=== PATIENT | male | born 1980 ===

== ENCOUNTER 2022-01-09 10:00 | Outpatient (RCR) | payer MEDICARE, MEDICAID, SELFPAY | END 2022-01-09 11:00 | disposition home or self-care (01) | LOC: HO.PTCHIC 10:00 | PROVIDERS: PCP Internal Medicine; Visit Provider Internal Medicine | DX: M25.552 Pain in left hip (principal) | CPT/HCPCS: 97110; 97162; 97163 ==

== ENCOUNTER 2022-01-17 15:26 | Inpatient (IN) | payer MEDICARE, MEDICAID, SELFPAY ==
--- NOTE | ~2022-01-17 | CT_ITS ---
EXAMINATION: CT CHEST, ABDOMEN AND PELVIS without contrast CLINICAL INFORMATION: Cough Reason for Exam abd and back pain COMPARISON: None TECHNIQUE: Multidetector volumetric CT imaging of the chest abdomen and pelvis obtained Axial MIP volume rendering provided. Sagittal and coronal reformatted images were obtained. This CT examination was performed using dose optimization techniques as appropriate, variously including the following: *Automated exposure control *Adjustment of mA and/or kV according to patient size (this includes techniques or standardized protocols for targeted exams where dose is matched to indication/reason for exam; i.e. extremities or head) *Use of iterative reconstruction technique CONTRAST: A noncontrasted study. Reformatted coronal and sagittal imaging was performed. DLP: 638 mGy-cm FINDINGS: DETECTIVE CHIEF, LINES TUBES: Residential Nurse reviewed, no lines. LUNGS: Interstitial: No evidence of significant interstitial disease. Lung nodules: Mild interstitial airspace opacification at lung bases bilaterally nonspecific could be sequela of mild interstitial pneumonitis or residual from prior pneumonia. Versus mild ILD.. AIRWAYS: Trachea and bronchi are normal. PLEURA: No pleural effusion or pneumothorax.
--- NOTE | ~2022-01-17 | US_ITS ---
EXAMINATION: US RETROPERITONEAL LIMITED (RENAL ONLY) CLINICAL INFORMATION: Renal cyst. COMPARISON: CT abdomen/pelvis dated 01/17/2022. TECHNIQUE: Arredondo-scale and Doppler images of the retroperitoneum/kidneys were obtained. FINDINGS: RIGHT KIDNEY: 11.4 x 5.6 x 5.6 cm (SAG x AP x TRV). The kidney is normal in size, contour, and echogenicity. Renal cortical thickness is normal. No renal calculi or hydronephrosis. Calcification from the prior CT not well visualized on ultrasound. Multiple simple-appearing right renal cysts with the largest measuring up to 1.0 x 1.6 x 1.2 cm. LEFT KIDNEY: 11.8 x 5.5 x 5.6 cm (SAG x AP x TRV). The kidney is normal in size, contour, and echogenicity. Renal cortical thickness is normal. No renal calculi or hydronephrosis. Multiple simple-appearing left renal cysts with the largest measuring 3.0 x 3.3 x 3.2 cm. US/US renal BI IMPRESSION:
[2022-01-17 15:39] VITALS: BP 145/90; PULSE 102; O2SAT 95
[2022-01-17 15:53] VITALS: BP 154/83; PULSE 96; RESP 20; TEMP 37.3; O2SAT 98; BMI 29.0
--- NOTE | 2022-01-17 16:10 | ED.FEVER ---
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 Has had intermittent fevers, back pain, abdominal pain for 3 days, and has been unable to ambulate with his walker for 1 day. Patient is normally ambulatory with his walker with minimal assistance, but was unable to get up at all today. His skilled nursing staff states that his behavior is not his baseline, he has been evaluated for right hip pain and was evaluated by Physical therapy over the past few weeks. Over the past 3 days, patient has reported back pain, that is different from his hip pain. Patient is a poor historian, is able to make his needs known. MD elicited complaint: fever and weakness Pertinent past history: other (Cerebral palsy and academic impairment) Onset (ago): day(s) Exacerbating factors: exertion Relieving factors: acetaminophen Associated symptoms: nasal congestion, cough and abdominal pain Treatments prior to arrival fever: acetaminophen Related Data Home Medications Medication Instructions Recorded Confirmed atorvastatin 10 mg tablet 1 tab PO DAILY 01/17/22 01/17/22 escitalopram oxalate 20 mg tablet 1 tab PO DAILY 01/17/22 01/17/22 gabapentin 300 mg capsule 1 cap PO DAILY 01/17/22 01/17/22 lisinopril 10 mg tablet 1 tab PO DAILY 01/17/22 01/17/22 meloxicam 7.5 mg tablet 1 tab PO DAILY 01/17/22 01/17/22 minocycline 100 mg capsule 1 tab PO DAILY 01/17/22 01/17/22 multivitamin 1 tab PO DAILY 01/17/22 01/17/22 oxcarbazepine 300 mg tablet 1 tab PO TID 01/17/22 01/17/22 pantoprazole 40 mg tablet,delayed 1 tab PO DAILY 01/17/22 01/17/22 release potassium chloride 10 mEq 1 tab PO DAILY 01/17/22 01/17/22 tablet,extended release risperidone 0.5 mg tablet 1 tab PO BID 01/17/22 01/17/22 triamcinolone acetonide 0.1 % 1 appl topical DAILY PRN Skin 01/17/22 01/17/22 topical ointment Irritation Previous Rx's Medication Instructions Recorded levofloxacin 750 mg tablet 750 mg PO Q24H 5 days #5 tabs 01/17/22 magnesium 200 mg tablet 200 mg PO DAILY 5 days #5 tabs 01/17/22 Allergies Allergy/AdvReac Type Severity Reaction Status Date / Time No Known Allergies Allergy Verified 01/17/22 16:08 Review of Systems Review of Systems: Constitutional: Positive Fever, No Chills ENT/Mouth: No Ear Pain, No Hoarseness, No sore throat Eyes: No Eye Pain, No Swelling, No Redness, No Foreign Body Cardiovascular: No Chest Pain, No SOB Respiratory: Positive Cough, No Dyspnea Gastrointestinal: No Nausea, No Vomiting, No Diarrhea, positive abdominal Pain Genitourinary: No Dysuria, No Hematuria Musculoskeletal: positive hip and right back pain, No Myalgias, No Joint Swelling Skin: No Skin lacerations, No rash Neuro: No Weakness, No Numbness, No Paresthesias, No Loss of Consciousness, No Dizziness, No Headache Psych: No Anxiety/Panic, No Depression Heme/Lymph: no easy bruising, no Lymphadenopathy Endocrine: No Polyuria, No Polydipsia Yes all other systems are reviewed and are negative [facility] Past Medical History Attestation statement: The following information was validated with the patient. Source: old records reviewed Social History Social History Alcohol intake: never Patient Tobacco Use Status: Never used Tobacco Smoked in Last 30 Days: No Use of substances other than those prescribed or required for medical reasons: No Advance Directives: No Advance Directives Information Provided: Yes Physical Exam Vital Signs: Vital Signs: Last Vital Signs Temp 98.3 F 01/18/22 01:34 Pulse 103 H 01/18/22 01:34 Resp 20 01/18/22 01:34 BP 158/66 H 01/18/22 01:34 Pulse Ox 96 01/18/22 01:34 O2 Del Method 01/18/22 01:34 BMI result Body Mass Index 29.0 Appearance: Alert. Oriented X3. Academic impairment, cerebral palsy. Mild distress. Eyes: Pupils equal, round and reactive to light. ENT: Pharynx normal. Neck: Normal inspection. Neck supple. CVS: Tachycardic heart rate and rhythm. Pulses normal. Respiratory: No respiratory distress. Breath sounds normal. Abdomen: Soft and diffusely tender without rigidity or rebound. Skin: Skin warm and dry. Normal skin color. Normal skin turgor. Extremities: No lower extremity edema. Moves all extremities against resistance. Neuro: No motor deficit. No sensory deficit. Cranial nerves 2-12 intact. Course Course Course Narrative: 42-year-old male presents via EMS from a skilled nursing with skilled nursing staff for evaluation of a fever. Patient has been sick for approximately 3 days with a cough, and muscle aches. He was having a difficult time walking over the past few days, does have chronic right hip pain which he sees a physical therapist for. This patient does have a yeast infection to his groins from urinary incontinence. He was treated with an ointment, finished that course of topicals and was then prescribed another or ointment for persistent skin breakdown by his primary care physician in the past 2 days. He has cerebral palsy, is able to make his needs known, but is not the best historian. Health history obtained from the group therapy counselor, patient is able to answer yes or no questions. I found during my exam that if I asked him if anything hurt, he would say yes, skilled nursing staff states that this patient will say yes to all medical complaints. Considering that the patient is not the best historian, and cannot give an accurate description of his pain, will order CT scan of the chest abdomen and pelvis. Will order labs, SARs respiratory panel, EKG, and urinalysis. Will order for Banda as we are straight cathing. 17:33 urinalysis positive for UTI, CBC within normal limits, 17:43 critical lab, mag 1.0, order for 2 g iv 20:45 CT indicates mild interstitial haziness at the lung bases bilaterally nonspecific, could be prior pneumonia or interstitial lung disease, has the sigmoid anastomosis without dehiscence. Left renal cysts partially hyperdense protruding to the lower left pole of the kidney and hyperdense structure up 1.4 cm in the middle pole of left kidney could be hemorrhagic and or complex cyst. 21:11 discussion with Urology as well as Nephrology, they will follow-up with patient in the morning. Would like to admit to Medicine. 21:30 discussion with hospitalist, patient is unable to ambulate, is not at his baseline, not able to make known, will be admitted for UTI, suspicion of pneumonia, hypomagnesemia, pending evaluation by Nephrology and Urology in the morning. Consultations Consultation #1: Kay Time: 21:05 Consultation #2: Samantha Time: 21:11 Consultation #3: Ingrid Time: 21:45 MDM - Fever Differential Diagnosis Differential diagnosis: Likely cellulitis, fever of unknown origin, gastroenteritis, community acquired pneumonia, pyelonephritis, sepsis and influenza Medical Records Attestation: I reviewed the patient's medical records. Lab Data Attestation: I reviewed the patient's lab results. Result diagrams: 01/17/22 17:14 01/17/22 17:14 Labs: Lab Results 01/17/22 01/17/22 01/17/22 Range/Units 16:44 17:14 17:14 WBC 10.1 (4.8-10.8) X10*3/uL RBC 4.70 (4.60-5.80) X10*6/uL Hgb 12.9 L (14.0-18.0) g/dl Hct 37.8 L (42.0-52.0) % MCV 80.4 (80.0-98.0) fL MCH 27.4 (27.0-33.0) pg MCHC 34.1 (31.0-36.0) g/dl RDW 14.0 (11.0-16.0) % Plt Count 174 (160-400) X10*3/uL MPV 10.0 (9.4-12.4) fL Immature Gran % (Auto) 0.4 (0.0-0.4) % Neut % (Auto) 71.3 (45-73) % Lymph % (Auto) 18.7 L (20-40) % Gulf % (Auto) 7.8 (2-11) % Eos % (Auto) 1.6 (0-4) % Baso % (Auto) 0.2 (0-2) % Lymph # (Auto) 1.9 (1.2-4.9) X10*3/uL Gulf # (Auto) 0.8 (0.1-1.2) X10*3/uL Eos # (Auto) 0.2 (0.0-0.4) X10*3/uL Baso # (Auto) 0.0 (0.0-0.2) X10*3/uL Abs Immat Gran (auto) 0.04 H (0.00-0.03) X10*3/uL Absolute Neuts (auto) 7.2 (2.0-8.3) x10*3/uL Absolute Nucleated RBC 0.000 (0.0-0.012) X10*3/uL Nucleated RBC % (auto) 0.0 (0.0-0.2) /100WBC PT (10.0-13.1) SEC INR (0.9-1.1) APTT 29.9 (26.0-36.4) SEC Sodium (135-145) mmol/L Potassium (3.3-5.1) mmol/L Chloride (96-108) mmol/L Carbon Dioxide (22-29) mmol/L Anion Gap (12-20) BUN (9-16) mg/dL Creatinine (0.5-1.4) mg/dL Estim Creat Clear Calc Estimated GFR POC Glucose (60-115) mg/dL Random Glucose (60-115) mg/dL Lactic Acid (0.5-2.0) mmol/L Calcium (8.4-10.2) mg/dL Magnesium (1.6-2.6) mg/dL Total Bilirubin (0.0-1.0) mg/dL Direct Bilirubin (0.0-0.5) mg/dL AST (5-37) U/L ALT (0-40) U/L Alkaline Phosphatase (39-117) U/L Total Protein (6.5-8.0) g/dL Albumin (3.5-5.0) g/dL Lipase (8-78) U/L Urine Color Yellow Urine Appearance Clear Urine pH 5.5 (5.0-9.0) Ur Specific Pierson 1.015 (1.005-1.025) Urine Protein Negative (Neg-Trace) mg/dL Urine Glucose (UA) Negative (Negative) mg/dL Urine Ketones Negative (Negative) mg/dL Urine Blood Negative (Negative) Urine Nitrite Negative (Negative) Ur Leukocyte Esterase Small (1+) H (Negative) Urine RBC 0-2 (0-2) /HPF Urine WBC 0-5 (0-5) /HPF Ur Squamous Epith Cells 0-2 (0-2) /HPF Urine Bacteria None Seen (None Seen) Hyaline Casts 0-2 (0-2) /LPF Influenza Type A (PCR) (Negative) Influenza Type B (PCR) (Negative) RSV RNA Qual (PCR) (Negative) SARS-CoV-2 RNA (RT-PCR) (Negative) 01/17/22 01/17/22 01/17/22 Range/Units 17:14 17:14 17:14 WBC (4.8-10.8) X10*3/uL RBC (4.60-5.80) X10*6/uL Hgb (14.0-18.0) g/dl Hct (42.0-52.0) % MCV (80.0-98.0) fL MCH (27.0-33.0) pg MCHC (31.0-36.0) g/dl RDW (11.0-16.0) % Plt Count (160-400) X10*3/uL MPV (9.4-12.4) fL Immature Gran % (Auto) (0.0-0.4) % Neut % (Auto) (45-73) % Lymph % (Auto) (20-40) % Gulf % (Auto) (2-11) % Eos % (Auto) (0-4) % Baso % (Auto) (0-2) % Lymph # (Auto) (1.2-4.9) X10*3/uL Gulf # (Auto) (0.1-1.2) X10*3/uL Eos # (Auto) (0.0-0.4) X10*3/uL Baso # (Auto) (0.0-0.2) X10*3/uL Abs Immat Gran (auto) (0.00-0.03) X10*3/uL Absolute Neuts (auto) (2.0-8.3) x10*3/uL Absolute Nucleated RBC (0.0-0.012) X10*3/uL Nucleated RBC % (auto) (0.0-0.2) /100WBC PT 11.7 (10.0-13.1) SEC INR 1.0 (0.9-1.1) APTT (26.0-36.4) SEC Sodium 140 (135-145) mmol/L Potassium 3.9 (3.3-5.1) mmol/L Chloride 103 (96-108) mmol/L Carbon Dioxide 26 (22-29) mmol/L Anion Gap 15 (12-20) BUN 21 H (9-16) mg/dL Creatinine 0.67 (0.5-1.4) mg/dL Estim Creat Clear Calc 140.5 Estimated GFR > 60 POC Glucose (60-115) mg/dL Random Glucose 116 H (60-115) mg/dL Lactic Acid 1.1 (0.5-2.0) mmol/L Calcium 9.0 (8.4-10.2) mg/dL Magnesium 1.0 L* (1.6-2.6) mg/dL Total Bilirubin < 0.2 (0.0-1.0) mg/dL Direct Bilirubin < 0.2 (0.0-0.5) mg/dL AST 72 H (5-37) U/L ALT 163 H (0-40) U/L Alkaline Phosphatase 295 H (39-117) U/L Total Protein 7.1 (6.5-8.0) g/dL Albumin 4.3 (3.5-5.0) g/dL Lipase 33 (8-78) U/L Urine Color Urine Appearance Urine pH (5.0-9.0) Ur Specific Pierson (1.005-1.025) Urine Protein (Neg-Trace) mg/dL Urine Glucose (UA) (Negative) mg/dL Urine Ketones (Negative) mg/dL Urine Blood (Negative) Urine Nitrite (Negative) Ur Leukocyte Esterase (Negative) Urine RBC (0-2) /HPF Urine WBC (0-5) /HPF Ur Squamous Epith Cells (0-2) /HPF Urine Bacteria (None Seen) Hyaline Casts (0-2) /LPF Influenza Type A (PCR) (Negative) Influenza Type B (PCR) (Negative) RSV RNA Qual (PCR) (Negative) SARS-CoV-2 RNA (RT-PCR) (Negative) 01/17/22 01/17/22 Range/Units 17:36 17:38 WBC (4.8-10.8) X10*3/uL RBC (4.60-5.80) X10*6/uL Hgb (14.0-18.0) g/dl Hct (42.0-52.0) % MCV (80.0-98.0) fL MCH (27.0-33.0) pg MCHC (31.0-36.0) g/dl RDW (11.0-16.0) % Plt Count (160-400) X10*3/uL MPV (9.4-12.4) fL Immature Gran % (Auto) (0.0-0.4) % Neut % (Auto) (45-73) % Lymph % (Auto) (20-40) % Gulf % (Auto) (2-11) % Eos % (Auto) (0-4) % Baso % (Auto) (0-2) % Lymph # (Auto) (1.2-4.9) X10*3/uL Gulf # (Auto) (0.1-1.2) X10*3/uL Eos # (Auto) (0.0-0.4) X10*3/uL Baso # (Auto) (0.0-0.2) X10*3/uL Abs Immat Gran (auto) (0.00-0.03) X10*3/uL Absolute Neuts (auto) (2.0-8.3) x10*3/uL Absolute Nucleated RBC (0.0-0.012) X10*3/uL Nucleated RBC % (auto) (0.0-0.2) /100WBC PT (10.0-13.1) SEC INR (0.9-1.1) APTT (26.0-36.4) SEC Sodium (135-145) mmol/L Potassium (3.3-5.1) mmol/L Chloride (96-108) mmol/L Carbon Dioxide (22-29) mmol/L Anion Gap (12-20) BUN (9-16) mg/dL Creatinine (0.5-1.4) mg/dL Estim Creat Clear Calc Estimated GFR POC Glucose 112 (60-115) mg/dL Random Glucose (60-115) mg/dL Lactic Acid (0.5-2.0) mmol/L Calcium (8.4-10.2) mg/dL Magnesium (1.6-2.6) mg/dL Total Bilirubin (0.0-1.0) mg/dL Direct Bilirubin (0.0-0.5) mg/dL AST (5-37) U/L ALT (0-40) U/L Alkaline Phosphatase (39-117) U/L Total Protein (6.5-8.0) g/dL Albumin (3.5-5.0) g/dL Lipase (8-78) U/L Urine Color Urine Appearance Urine pH (5.0-9.0) Ur Specific Pierson (1.005-1.025) Urine Protein (Neg-Trace) mg/dL Urine Glucose (UA) (Negative) mg/dL Urine Ketones (Negative) mg/dL Urine Blood (Negative) Urine Nitrite (Negative) Ur Leukocyte Esterase (Negative) Urine RBC (0-2) /HPF Urine WBC (0-5) /HPF Ur Squamous Epith Cells (0-2) /HPF Urine Bacteria (None Seen) Hyaline Casts (0-2) /LPF Influenza Type A (PCR) NEGATIVE (Negative) Influenza Type B (PCR) NEGATIVE (Negative) RSV RNA Qual (PCR) NEGATIVE (Negative) SARS-CoV-2 RNA (RT-PCR) NEGATIVE (Negative) Imaging Data Chest abdomen pelvis CT: Attestation: I personally reviewed and interpreted this imaging study as follows: Radiologist's impression: EXAMINATION: CT CHEST, ABDOMEN AND PELVIS without contrast CLINICAL INFORMATION:? Cough Reason for Exam abd and back pain COMPARISON: None TECHNIQUE:? Multidetector volumetric CT imaging of the chest abdomen and pelvis obtained Axial MIP volume rendering provided. Sagittal and coronal reformatted images were obtained. This CT examination was performed using dose optimization techniques as appropriate, variously including the following: *Automated exposure control *Adjustment of mA and/or kV according to patient size (this includes techniques or standardized protocols for targeted exams where dose is matched to indication/reason for exam; i.e. extremities or head) *Use of iterative reconstruction technique CONTRAST: A noncontrasted study. Reformatted coronal and sagittal imaging was performed. DLP: 638 mGy-cm FINDINGS: AIRPORT OPERATIONS COORDINATOR, LINES TUBES: Solid Waste Division Supervisor reviewed, no lines. LUNGS: Interstitial: No evidence of significant interstitial disease. Lung nodules: Mild interstitial airspace opacification at lung bases bilaterally nonspecific could be sequela of mild interstitial pneumonitis or residual from prior pneumonia. Versus mild ILD.. AIRWAYS: Trachea and bronchi are normal. PLEURA: No pleural effusion or pneumothorax. MEDIASTINUM AND MARIA DE JESUS: The visualized thyroid gland is unremarkable. No mediastinal, hilar or axillary lymphadenopathy. ? There is no mediastinal mass. THORACIC AORTA: Thoracic aorta is normal in size. CHEST WALL, LOWER NECK, SURROUNDING SOFT TISSUES: Normal HEART AND PERICARDIUM: Heart is normal in size. There is no pericardial effusion. HEPATOBILIARY: No focal hepatic lesions. No biliary ductal dilatation. GALLBLADDER: Gallbladder unremarkable. SPLEEN: Spleen is normal in size. PANCREAS: No focal mass or ductal dilatation. GI TRACT: No distention or wall thickening. Bowel anastomosis line down deep in the pelvis from prior resection. No evidence of dehiscence or abscess. Appendix is normal. ADRENALS: No adrenal nodules. KIDNEYS/URETERS: There is a 2 mm nonobstructing stone lower pole right kidney. There is fullness of left renal collecting system, probably extrarenal pelvis, no evidence of obstruction, left ureter is normal in diameter. Hyperdense structure at the middle pole left kidney could be a hemorrhagic cyst. Not well-defined hypodense area in the lower pole left kidney measure up to 1.8 cm not well characterized on this noncontrast CT scan could be a complex cyst, this may require further investigation with correlation with follow-up imaging. Perinephric fat are clear. PELVIC ORGANS/BLADDER: Unremarkable PERITONEUM: No free air or fluid. LYMPH NODES:? no retroperitoneal or mesenteric lymphadenopathy. VASCULAR:Abdominal aorta normal in size, no aneurysm found. BONES, ABDOMINAL WALL AND SOFT TISSUES: Age-appropriate changes of the spine and skeletal system, no destructive osteolytic or osteosclerotic bone lesion found CT/CT chest wo IV con IMPRESSION: *Mild interstitial haziness at lung bases bilaterally nonspecific, could be sequela of prior pneumonia or mild interstitial lung disease. ? *Postoperative changes, sigmoid anastomosis, no CT evidence of dehiscence. ? *There are left renal cysts, including 1.8 cm partially hyperdense protruding from the lower pole left kidney and hyperdense structure 1.4 cm middle pole left kidney could be a hemorrhagic and/or complex cyst, this would require further investigation with follow-up imaging starting with ultrasound or contrast-enhanced CT scan. ? *Tiny nonobstructing 3 mm stone right kidney. No hydronephrosis. ECG Data ECG #1: Attestation: I personally reviewed and interpreted this ECG as follows: ECG interpretation date: 01/17/22 ECG interpretation time: 16:28 Prior ECG tracings: available for review Interpretation: Vent. rate 99 BPM AK interval 136 ms QRS duration 90 ms QT/QTc 360/462 ms P-R-T axes 47 54 36 Normal sinus rhythm Normal ECG No previous ECGs available Discharge Plan Discharge Clinical Impression: Community acquired pneumonia, Acute UTI, Weakness Patient Disposition: Admitted As Inpatient
[2022-01-17 16:52] LABS: Appearance Urine Clear; Color Urine Yellow; Glucose Urine UA Negative (Negative); Leukocyte Esterase Urine Small (1+) (Negative); Nitrite Urine Negative (Negative); PH 5.5 (5.0-9.0); Specific Gravity - Urine 1.015 (1.005-1.025); UMIC TRIGGER UACC YES; Urine Blood Negative (Negative); Urine Ketones Negative (Negative); Urine Protein Negative (Neg-Trace)
[2022-01-17] MEDS: 0.9 % Sodium Chloride 1,000 ML 999 ML IVCONT ×2 (16:58→21:34)
[2022-01-17 17:06] LABS: Bacteria Urine None Seen (None Seen); Hyaline Casts Urine 0-2 /LPF (0-2); RBC Urine 0-2 /HPF (0-2); Squamous Epithelial Cell Urine 0-2 /HPF (0-2); UACC Culture Trigger YES; WBC Urine 0-5 /HPF (0-5)
[2022-01-17 17:22] LABS: MANUAL DIFF FLAG NO
[2022-01-17 17:23] LABS: Basophils Percent Auto 0.2 % (0-2); Eosinophils Absolute Auto 0.2 X10*3/uL (0.0-0.4); Eosinophils Percent Auto 1.6 % (0-4); Hematocrit 37.8 % (42.0-52.0); Hemoglobin 12.9 g/dl (14.0-18.0); Imm Gran Abs Auto 0.04 X10*3/uL (0.00-0.03); Imm Gran Pct Auto 0.4 % (0.0-0.4); Lymphocytes Absolute Auto 1.9 X10*3/uL (1.2-4.9); Lymphocytes Percent Auto 18.7 % (20-40); Mean Corpuscular HGB Conc 34.1 g/dl (31.0-36.0); Mean Corpuscular Hemoglobin 27.4 pg (27.0-33.0); Mean Corpuscular Volume 80.4 fL (80.0-98.0); Monocytes Absolute Auto 0.8 X10*3/uL (0.1-1.2); Monocytes Percent Auto 7.8 % (2-11); Neutrophils Absolute Auto 7.2 x10*3/uL (2.0-8.3); Neutrophils Percent Auto 71.3 % (45-73); Platelet Count 174 X10*3/uL (160-400); White Blood Count 10.1 X10*3/uL (4.8-10.8)
[2022-01-17 17:29] LABS: Prothrombin Time 11.7 SEC (10.0-13.1)
[2022-01-17 17:32] LABS: Partial Thromboplastin Time 29.9 SEC (26.0-36.4)
[2022-01-17 17:36] LABS: Lactic Acid 1.1 mmol/L (0.5-2.0)
--- NOTE | 2022-01-17 17:43 | PC.NURSE ---
SUPPLY CHAIN CONSULTANT order for serrano cath d/t skin issues. spoke with SUPPLY CHAIN CONSULTANT and ok for condom cath to be placed instead.
[2022-01-17 17:44] LABS: Alanine Aminotransferase 163 U/L (0-40); Albumin Level 4.3 g/dL (3.5-5.0); Alkaline Phosphatase 295 U/L (39-117); Anion Gap 15 (12-20); Aspartate Amino Transferase 72 U/L (5-37); Bilirubin Direct < 0.2 mg/dL (0.0-0.5); Bilirubin Total < 0.2 mg/dL (0.0-1.0); Blood Urea Nitrogen 21 mg/dL (9-16); Carbon Dioxide 26 mmol/L (22-29); Chloride 103 mmol/L (96-108); Creatinine Clr Calc Pharmacy 140.5; Estimated Glomerular Filt Rate > 60; Glucose Random 116 mg/dL (60-115); Lipase 33 U/L (8-78); Potassium 3.9 mmol/L (3.3-5.1); Sodium 140 mmol/L (135-145); Total Protein 7.1 g/dL (6.5-8.0)
[2022-01-17 17:47] VITALS: BP 139/89; PULSE 94; RESP 22; TEMP 37.2; O2SAT 95
[2022-01-17] MEDS: cefTRIAXone sodium 1 GM in 0.9 % Sodium Chloride 50 ML IV (17:50)
[2022-01-17 18:20] LABS: Influenza A PCR NEGATIVE (Negative); Influenza B PCR NEGATIVE (Negative); Resp Syncy Virus RNA Qual PCR NEGATIVE (Negative); SARS COV2 PCR INHOUSE NEGATIVE (Negative)
[2022-01-17] MEDS: Magnesium Sulfate/H2O 2 GM/50 ML PIGGYBACK IV (18:29)
--- NOTE | 2022-01-17 19:47 | PC.NURSE ---
Assumed care of pt. at 1900. Pt. resting in bed with [facility] staff at bedside. Mag sulfate is running with approximately one hour left. IVF is also running currently. Pt. complains of pain but is vague in describing pain. Appears to be abdominal and head pain.
--- NOTE | 2022-01-17 21:23 | PM.IMHP ---
History of Present Illness Date of Service: 01/17/22 Chief Complaint: weakness 42-year-old male with past medical history of cerebral palsy, hypertension, GERD, presents to the hospital from half-way with reported evaluation for feeling unwell. History is obtained from ED PA as well as his architectural engineer at bedside who does not have much information S she reports that she only came into cover for her boss. It appears the patient has had increased weakness and inability to ambulate as a result due to increased weakness and feeling unwell. Patient usually uses walker to get around but has stopped using his walker because he is too weak. Patient is mentally disabled at baseline, he does communicate but only yes and no, when asked about his review of system he reports yes to all my questions with no discrimination. Unclear if he understands what I am asking him. According to architectural engineer at bedside she does report that he has been complaining of increased abdominal pain. On arrival to the ED patient is hemodynamically stable no significant abnormal vitals Labs are significant for WBC count of 10.1, hemoglobin of 12.9, hematocrit 37.8, Magnesium of 1.0, AST of 72, ALT of 163, alk-phos of 295, UA that is positive for leukocyte Estrace and the some WBC Chest CT shows mild interstitial haziness at lung bases bilaterally which is nonspecific, also left renal cyst including 1.8 cm partially hyperdense protruding from the lower pole left kidney and hyperdense structure 1.4 cm in the middle pole of left kidney which could be hemorrhagic and or complex cyst. Patient start IV antibiotics and will be admitted for further evaluation History is obtained from EMR, may not be complete Review of Systems Review of Systems: Yes all other systems are reviewed and are negative [facility] Medical History (Updated 01/18/22 @ 06:23 by Yuridia Quintero MD) Cerebral palsy Hypertension Intellectual disability Pertinent family history: Unknown Social History Alcohol intake: never Patient Tobacco Use Status: Never used Tobacco Smoked in Last 30 Days: No Use of substances other than those prescribed or required for medical reasons: No Advance Directives: No Advance Directives Information Provided: Yes Meds Allergies Allergy/AdvReac Type Severity Reaction Status Date / Time No Known Allergies Allergy Verified 01/17/22 16:08 Home Medications Medication Instructions Recorded Confirmed Last Taken Type atorvastatin 10 mg tablet 1 tab PO DAILY 10/08/22 10/08/22 Unknown History escitalopram oxalate 20 mg tablet 1 tab PO DAILY 01/17/22 01/17/22 Unknown History gabapentin 300 mg capsule 1 cap PO DAILY 01/17/22 01/17/22 Unknown History lisinopril 10 mg tablet 1 tab PO DAILY 01/17/22 01/17/22 Unknown History meloxicam 7.5 mg tablet 1 tab PO DAILY 01/17/22 01/17/22 Unknown History minocycline 100 mg capsule 1 tab PO DAILY 01/17/22 01/17/22 Unknown History multivitamin 1 tab PO DAILY 01/17/22 01/17/22 Unknown History oxcarbazepine 300 mg tablet 1 tab PO TID 01/17/22 01/17/22 Unknown History pantoprazole 40 mg tablet,delayed 1 tab PO DAILY 01/17/22 01/17/22 Unknown History release potassium chloride 10 mEq 1 tab PO DAILY 01/17/22 01/17/22 Unknown History tablet,extended release risperidone 0.5 mg tablet 1 tab PO BID 01/17/22 01/17/22 Unknown History triamcinolone acetonide 0.1 % 1 appl topical DAILY PRN Skin 01/17/22 01/17/22 Unknown History topical ointment Irritation Physical Exam Vital Signs and Narrative: Vital Signs: Last Vital Signs Temp 99.0 F 01/17/22 17:47 Pulse 94 01/17/22 17:47 Resp 22 H 01/17/22 17:47 BP 139/89 01/17/22 17:47 Pulse Ox 95 01/17/22 17:47 O2 Del Method 01/17/22 17:47 BMI result Body Mass Index 29.0 Const: General: cooperative and no acute distress Eyes: General: appearance normal, both eyes and all related structures Pupils: Equal, round and reactive pupils present Resp: Effort & Inspection: normal respiratory effort Auscultation: clear to auscultation bilaterally Cardio: Rate: regular rate Rhythm: regular rhythm GI: Other: No tenderness, No rebound or guarding Palpation (GI): Soft to palpation Auscultation: normal bowel sounds Skin: General skin exam: no rashes or lesions noted Neuro: Cranial nerves: Yes Equal, round and reactive pupils present Extrem: General: Yes normal to inspection and Yes no pedal edema Results Labs CBC and Chem 7: 01/17/22 17:14 01/17/22 17:14 Labs: Laboratory Results - last 24 hr 01/17/22 01/17/22 01/17/22 16:44 17:14 17:14 MCV 80.4 MCH 27.4 MCHC 34.1 RDW 14.0 Plt Count 174 MPV 10.0 Immature Gran % (Auto) 0.4 Neut % (Auto) 71.3 Lymph % (Auto) 18.7 L [place] % (Auto) 7.8 Eos % (Auto) 1.6 Baso % (Auto) 0.2 Lymph # (Auto) 1.9 [place] # (Auto) 0.8 Eos # (Auto) 0.2 Baso # (Auto) 0.0 Abs Immat Gran (auto) 0.04 H Absolute Neuts (auto) 7.2 Absolute Nucleated RBC 0.000 Nucleated RBC % (auto) 0.0 PT INR APTT 29.9 Anion Gap Estim Creat Clear Calc Estimated GFR POC Glucose Random Glucose Lactic Acid Calcium Magnesium Total Bilirubin Direct Bilirubin AST ALT Alkaline Phosphatase Total Protein Albumin Lipase Urine Color Yellow Urine Appearance Clear Urine pH 5.5 Ur Specific [place] 1.015 Urine Protein Negative Urine Glucose (UA) Negative Urine Ketones Negative Urine Blood Negative Urine Nitrite Negative Ur Leukocyte Esterase Small (1+) H Urine RBC 0-2 Urine WBC 0-5 Ur Squamous Epith Cells 0-2 Urine Bacteria None Seen Hyaline Casts 0-2 Influenza Type A (PCR) Influenza Type B (PCR) RSV RNA Qual (PCR) SARS-CoV-2 RNA (RT-PCR) 01/17/22 01/17/22 01/17/22 17:14 17:14 17:14 MCV MCH MCHC RDW Plt Count MPV Immature Gran % (Auto) Neut % (Auto) Lymph % (Auto) [place] % (Auto) Eos % (Auto) Baso % (Auto) Lymph # (Auto) [place] # (Auto) Eos # (Auto) Baso # (Auto) Abs Immat Gran (auto) Absolute Neuts (auto) Absolute Nucleated RBC Nucleated RBC % (auto) PT 11.7 INR 1.0 APTT Anion Gap 15 Estim Creat Clear Calc 140.5 Estimated GFR > 60 POC Glucose Random Glucose 116 H Lactic Acid 1.1 Calcium 9.0 Magnesium 1.0 L* Total Bilirubin < 0.2 Direct Bilirubin < 0.2 AST 72 H ALT 163 H Alkaline Phosphatase 295 H Total Protein 7.1 Albumin 4.3 Lipase 33 Urine Color Urine Appearance Urine pH Ur Specific [place] Urine Protein Urine Glucose (UA) Urine Ketones Urine Blood Urine Nitrite Ur Leukocyte Esterase Urine RBC Urine WBC Ur Squamous Epith Cells Urine Bacteria Hyaline Casts Influenza Type A (PCR) Influenza Type B (PCR) RSV RNA Qual (PCR) SARS-CoV-2 RNA (RT-PCR) 01/17/22 01/17/22 17:36 17:38 MCV MCH MCHC RDW Plt Count MPV Immature Gran % (Auto) Neut % (Auto) Lymph % (Auto) [place] % (Auto) Eos % (Auto) Baso % (Auto) Lymph # (Auto) [place] # (Auto) Eos # (Auto) Baso # (Auto) Abs Immat Gran (auto) Absolute Neuts (auto) Absolute Nucleated RBC Nucleated RBC % (auto) PT INR APTT Anion Gap Estim Creat Clear Calc Estimated GFR POC Glucose 112 Random Glucose Lactic Acid Calcium Magnesium Total Bilirubin Direct Bilirubin AST ALT Alkaline Phosphatase Total Protein Albumin Lipase Urine Color Urine Appearance Urine pH Ur Specific [place] Urine Protein Urine Glucose (UA) Urine Ketones Urine Blood Urine Nitrite Ur Leukocyte Esterase Urine RBC Urine WBC Ur Squamous Epith Cells Urine Bacteria Hyaline Casts Influenza Type A (PCR) NEGATIVE Influenza Type B (PCR) NEGATIVE RSV RNA Qual (PCR) NEGATIVE SARS-CoV-2 RNA (RT-PCR) NEGATIVE Imaging Radiologist's Impressions: Impressions Abdomen/Pelvis CT 01/17/22 17:52 IMPRESSION: *Mild interstitial haziness at lung bases bilaterally nonspecific, could be sequela of prior pneumonia or mild interstitial lung disease. *Postoperative changes, sigmoid anastomosis, no CT evidence of dehiscence. *There are left renal cysts, including 1.8 cm partially hyperdense protruding from the lower pole left kidney and hyperdense structure 1.4 cm middle pole left kidney could be a hemorrhagic and/or complex cyst, this would require further investigation with follow-up imaging starting with ultrasound or contrast-enhanced CT scan. *Tiny nonobstructing 3 mm stone right kidney. No hydronephrosis. Chest CT 01/17/22 17:52 IMPRESSION: *Mild interstitial haziness at lung bases bilaterally nonspecific, could be sequela of prior pneumonia or mild interstitial lung disease. *Postoperative changes, sigmoid anastomosis, no CT evidence of dehiscence. *There are left renal cysts, including 1.8 cm partially hyperdense protruding from the lower pole left kidney and hyperdense structure 1.4 cm middle pole left kidney could be a hemorrhagic and/or complex cyst, this would require further investigation with follow-up imaging starting with ultrasound or contrast-enhanced CT scan. *Tiny nonobstructing 3 mm stone right kidney. No hydronephrosis. Assessment and Plan (1) Community acquired pneumonia: Status: Acute (2) Acute UTI: Status: Acute (3) Weakness: Status: Acute (4) Kidney cysts: Status: Acute Plan 42-year-old male with past medical history of cerebral palsy, intellectual disability, as well as hypertension presents to the hospital with weakness found to have possibly UTI as well as pneumonia # community-acquired pneumonia - has evidence of pneumonia on chest CT - will treat with IV antibiotics - follow cultures # acute UTI - UA positive - treat with IV antibiotics - follow cultures # generalized weakness - likely secondary to above - PT consulted # kidney cysts - concerning for possible hemorrhagic - will obtain ultrasound - based on findings can consider urology consult DVT prophylaxis: SCDs Pt will require a minimum 2 night hospital stay for IV antibiotics, as well as evaluation of these cysts concerning for hemorrhage Quality Stroke Does the patient have a stroke diagnosis?: No VTE Prior VTE?: No VTE Risk Level:: Medical - moderate - high VTE Device Contraindication: N/A - Device Ordered VTE Drug Contraindication: Treatment Not Indicated
[2022-01-17] MEDS: Azithromycin 500 MG in 0.9 % Sodium Chloride 250 ML 125 MG IV (21:32)
--- NOTE | 2022-01-17 21:43 | PC.NURSE ---
Pt. resting in bed with [facility] staff at bedside. Pt. requesting food. will provide a sandwich. IV abx azithromycin is now running. Delayed administration d/t positional IV and finishing up mag sulfate. IVF fluids are also running.
[2022-01-17 21:50] VITALS: BP 151/83; PULSE 97; RESP 21; TEMP 37.1
[2022-01-17] MEDS: Acetaminophen 325 MG TABLET 650 MG PO (21:55)
[2022-01-18] VITALS (7 sets, daily range): BP systolic 133–158; BP diastolic 64–92; PULSE 70–103; RESP 16–24; TEMP 36.2–37.2; O2SAT 94–98
--- NOTE | 2022-01-18 03:54 | PC.NURSE ---
Report called to [facility] in overflow to send pt. to them.
--- NOTE | 2022-01-18 07:14 | PC.NURSE ---
Assumed care for this pt at this time
[2022-01-18 08:30] LABS: MANUAL DIFF FLAG NO
[2022-01-18] MEDS: lisinopriL 10 MG TABLET PO (08:30)
[2022-01-18] MEDS: Atorvastatin Calcium 10 MG TABLET PO (08:30)
[2022-01-18] MEDS: Multivitamin TABLET 1 TAB PO (08:30)
[2022-01-18] MEDS: Escitalopram Oxalate 20 MG TABLET PO (08:30)
[2022-01-18] MEDS: Gabapentin 300 MG CAPSULE PO (08:30)
[2022-01-18] MEDS: 0.9 % Sodium Chloride Flush 3 ML SYRINGE IVFLUSH ×3 (08:31→22:52)
[2022-01-18 08:34] LABS: Basophils Percent Auto 0.3 % (0-2); Eosinophils Absolute Auto 0.1 X10*3/uL (0.0-0.4); Eosinophils Percent Auto 1.5 % (0-4); Hematocrit 36.9 % (42.0-52.0); Hemoglobin 12.4 g/dl (14.0-18.0); Imm Gran Abs Auto 0.03 X10*3/uL (0.00-0.03); Imm Gran Pct Auto 0.4 % (0.0-0.4); Lymphocytes Absolute Auto 0.9 X10*3/uL (1.2-4.9); Lymphocytes Percent Auto 13.1 % (20-40); Mean Corpuscular HGB Conc 33.6 g/dl (31.0-36.0); Mean Corpuscular Hemoglobin 27.3 pg (27.0-33.0); Mean Corpuscular Volume 81.3 fL (80.0-98.0); Mean Platelet Volume 10.2 fL (9.4-12.4); Monocytes Absolute Auto 0.4 X10*3/uL (0.1-1.2); Neutrophils Absolute Auto 5.7 x10*3/uL (2.0-8.3); Neutrophils Percent Auto 79.7 % (45-73); Platelet Count 168 X10*3/uL (160-400); Red Blood Count 4.54 X10*6/uL (4.60-5.80); Red Cell Distribution Width 14.3 % (11.0-16.0); White Blood Count 7.2 X10*3/uL (4.8-10.8)
[2022-01-18] MEDS: ondansetron HCL 4 MG/2 ML VIAL IVPUSH ×2 (08:37→15:41)
[2022-01-18 08:59] LABS: Anion Gap 16 (12-20); Blood Urea Nitrogen 12 mg/dL (9-16); Carbon Dioxide 24 mmol/L (22-29); Chloride 105 mmol/L (96-108); Creatinine Clr Calc Pharmacy 149.5; Estimated Glomerular Filt Rate > 60; Glucose Random 190 mg/dL (60-115); Sodium 141 mmol/L (135-145)
--- NOTE | 2022-01-18 11:14 | MHC.CM.PN ---
Patient lives in care home. Owns walker. Mother Any is guardian, copy requested. Plan is to return to care home via care home staff. CM to follow.
--- NOTE | 2022-01-18 11:25 | HO.PM.IMPN ---
Subjective Subjective Date of Service: 01/18/22 Interval History: the patient was seen and evaluated this morning Laying in bed, feels comfortable but reports increased weakness No reported other overnight events. Systemic review: No fever, chills or weakness No chest pain, palpitation Reporting improved breathing No abdominal pain, nausea or vomiting No urinary symptoms No any rash or wounds Physical Exam Vital Signs: Vital Signs: Last Vital Signs Temp 98.9 F 01/18/22 10:10 Pulse 97 01/18/22 10:10 Resp 24 H 01/18/22 10:10 BP 149/84 H 01/18/22 10:10 Pulse Ox 95 01/18/22 10:10 O2 Del Method 01/18/22 10:10 BMI result Body Mass Index 29.0 Const: Other: Constitutional : Alert, interactive, not in distress Neck : Normal inspection, Supple Cardiovascular : RRR, no JVP, no lower extremity edema Respiratory : fair bilateral air entry, no crackles, wheezes or rhonchi Gastrointestinal: soft, lax, Normal bowel sounds, Non tender Skin : Warm, Dry Neurological : Alert & oriented to self and place, No focal deficit Objective Data Active Medications Acetaminophen (Acetaminophen 325 Mg Tablet) 650 mg PO Q6H PRN PRN Reason: Pain, Mild (Pain Scale 1-3) Atorvastatin Calcium (Atorvastatin Calcium 10 Mg Tablet) 10 mg PO DAILY [facility] Last Admin: 01/18/22 08:30 Dose: 10 mg Documented By: MILVIA Azithromycin (Azithromycin 500 Mg Tablet) 500 mg PO Q24H [facility] Docusate Sodium (Docusate Sodium 100 Mg Capsule) 100 mg PO DAILY PRN PRN Reason: Constipation Escitalopram Oxalate (Escitalopram Oxalate 20 Mg Tablet) 20 mg PO DAILY [facility] Last Admin: 01/18/22 08:30 Dose: 20 mg Documented By: MILVIA Gabapentin (Gabapentin 300 Mg Capsule) 300 mg PO DAILY [facility] Last Admin: 01/18/22 08:30 Dose: 300 mg Documented By: MILVIA Ceftriaxone Sodium 1 gm/ (Sodium Chloride) 50 mls @ 100 mls/hr IV Q24H [facility] Lisinopril (Lisinopril 10 Mg Tablet) 10 mg PO DAILY [facility]; Protocol Last Admin: 01/18/22 08:30 Dose: 10 mg Documented By: MILVIA Multivitamins/Vitamin C (Multivitamin Tablet) 1 tab PO DAILY [facility] Last Admin: 01/18/22 08:30 Dose: 1 tab Documented By: MILVAI Non-Formulary Medication (Minocycline) 1 tab PO DAILY [facility] Nystatin (Nystatin Powder 15 Gm Bottle) 1 appl TOPICAL BID [facility]; Protocol Last Admin: 01/18/22 11:07 Dose: Not Given Documented By: YENY Non-Admin Reason: Med Not Available Omeprazole (Omeprazole 20 Mg Capsule.Dr) 20 mg PO BID@0630,1630 [facility] Ondansetron HCl (Ondansetron Hcl 4 Mg/2 Ml Vial) 4 mg IVPUSH Q8H PRN PRN Reason: Nausea and Vomiting Last Admin: 01/18/22 08:37 Dose: 4 mg Documented By: MILVIA Oxcarbazepine (Oxcarbazepine 300 Mg Tablet) 300 mg PO TID [facility] Potassium Chloride (Potassium Chloride Er 10 Meq Capsule.Er) 10 meq PO DAILY [facility] Risperidone (Risperidone 0.5 Mg Tablet) 0.5 mg PO BID [facility] Sodium Chloride (0.9 % Sodium Chloride Flush 3 Ml Syringe) 3 ml IVFLUSH QSHIFT [facility] Last Admin: 01/18/22 08:31 Dose: 3 ml Documented By: MILVIA Triamcinolone Acetonide (Triamcinolone Acet 0.1 % Oint 15 Gm Tube) 1 appl TOPICAL DAILY PRN PRN Reason: Skin Irritation Labs CBC & Chem 7: 01/18/22 08:26 01/18/22 08:26 Labs: Laboratory Results - last 24 hr 01/17/22 01/17/22 01/17/22 16:44 17:14 17:14 MCV 80.4 MCH 27.4 MCHC 34.1 RDW 14.0 Plt Count 174 MPV 10.0 Immature Gran % (Auto) 0.4 Neut % (Auto) 71.3 Lymph % (Auto) 18.7 L [place] % (Auto) 7.8 Eos % (Auto) 1.6 Baso % (Auto) 0.2 Lymph # (Auto) 1.9 [place] # (Auto) 0.8 Eos # (Auto) 0.2 Baso # (Auto) 0.0 Abs Immat Gran (auto) 0.04 H Absolute Neuts (auto) 7.2 Absolute Nucleated RBC 0.000 Nucleated RBC % (auto) 0.0 PT INR APTT 29.9 Anion Gap Estim Creat Clear Calc Estimated GFR POC Glucose Random Glucose Lactic Acid Calcium Magnesium Total Bilirubin Direct Bilirubin AST ALT Alkaline Phosphatase Total Protein Albumin Lipase Urine Color Yellow Urine Appearance Clear Urine pH 5.5 Ur Specific [place] 1.015 Urine Protein Negative Urine Glucose (UA) Negative Urine Ketones Negative Urine Blood Negative Urine Nitrite Negative Ur Leukocyte Esterase Small (1+) H Urine RBC 0-2 Urine WBC 0-5 Ur Squamous Epith Cells 0-2 Urine Bacteria None Seen Hyaline Casts 0-2 Influenza Type A (PCR) Influenza Type B (PCR) RSV RNA Qual (PCR) SARS-CoV-2 RNA (RT-PCR) 01/17/22 01/17/22 01/17/22 17:14 17:14 17:14 MCV MCH MCHC RDW Plt Count MPV Immature Gran % (Auto) Neut % (Auto) Lymph % (Auto) [place] % (Auto) Eos % (Auto) Baso % (Auto) Lymph # (Auto) [place] # (Auto) Eos # (Auto) Baso # (Auto) Abs Immat Gran (auto) Absolute Neuts (auto) Absolute Nucleated RBC Nucleated RBC % (auto) PT 11.7 INR 1.0 APTT Anion Gap 15 Estim Creat Clear Calc 140.5 Estimated GFR > 60 POC Glucose Random Glucose 116 H Lactic Acid 1.1 Calcium 9.0 Magnesium 1.0 L* Total Bilirubin < 0.2 Direct Bilirubin < 0.2 AST 72 H ALT 163 H Alkaline Phosphatase 295 H Total Protein 7.1 Albumin 4.3 Lipase 33 Urine Color Urine Appearance Urine pH Ur Specific [place] Urine Protein Urine Glucose (UA) Urine Ketones Urine Blood Urine Nitrite Ur Leukocyte Esterase Urine RBC Urine WBC Ur Squamous Epith Cells Urine Bacteria Hyaline Casts Influenza Type A (PCR) Influenza Type B (PCR) RSV RNA Qual (PCR) SARS-CoV-2 RNA (RT-PCR) 01/17/22 01/17/22 01/18/22 17:36 17:38 08:26 MCV 81.3 MCH 27.3 MCHC 33.6 RDW 14.3 Plt Count 168 MPV 10.2 Immature Gran % (Auto) 0.4 Neut % (Auto) 79.7 H Lymph % (Auto) 13.1 L [place] % (Auto) 5.0 Eos % (Auto) 1.5 Baso % (Auto) 0.3 Lymph # (Auto) 0.9 L [place] # (Auto) 0.4 Eos # (Auto) 0.1 Baso # (Auto) 0.0 Abs Immat Gran (auto) 0.03 Absolute Neuts (auto) 5.7 Absolute Nucleated RBC 0.000 Nucleated RBC % (auto) 0.0 PT INR APTT Anion Gap Estim Creat Clear Calc Estimated GFR POC Glucose 112 Random Glucose Lactic Acid Calcium Magnesium Total Bilirubin Direct Bilirubin AST ALT Alkaline Phosphatase Total Protein Albumin Lipase Urine Color Urine Appearance Urine pH Ur Specific [place] Urine Protein Urine Glucose (UA) Urine Ketones Urine Blood Urine Nitrite Ur Leukocyte Esterase Urine RBC Urine WBC Ur Squamous Epith Cells Urine Bacteria Hyaline Casts Influenza Type A (PCR) NEGATIVE Influenza Type B (PCR) NEGATIVE RSV RNA Qual (PCR) NEGATIVE SARS-CoV-2 RNA (RT-PCR) NEGATIVE 01/18/22 08:26 MCV MCH MCHC RDW Plt Count MPV Immature Gran % (Auto) Neut % (Auto) Lymph % (Auto) [place] % (Auto) Eos % (Auto) Baso % (Auto) Lymph # (Auto) [place] # (Auto) Eos # (Auto) Baso # (Auto) Abs Immat Gran (auto) Absolute Neuts (auto) Absolute Nucleated RBC Nucleated RBC % (auto) PT INR APTT Anion Gap 16 Estim Creat Clear Calc 149.5 Estimated GFR > 60 POC Glucose Random Glucose 190 H D Lactic Acid Calcium 9.0 Magnesium Total Bilirubin Direct Bilirubin AST ALT Alkaline Phosphatase Total Protein Albumin Lipase Urine Color Urine Appearance Urine pH Ur Specific [place] Urine Protein Urine Glucose (UA) Urine Ketones Urine Blood Urine Nitrite Ur Leukocyte Esterase Urine RBC Urine WBC Ur Squamous Epith Cells Urine Bacteria Hyaline Casts Influenza Type A (PCR) Influenza Type B (PCR) RSV RNA Qual (PCR) SARS-CoV-2 RNA (RT-PCR) Microbiology Microbiology Results: Microbiology 01/17/22 17:07 Urine Culture - Preliminary Urine clean catch - Clean Catch Midstream Culture too young to evaluate. Assessment and Plan (1) Community acquired pneumonia: Status: Acute (2) Acute UTI: Status: Acute (3) Kidney cysts: Status: Acute (4) Weakness: Status: Acute Plan 42-year-old male with past medical history of cerebral palsy, intellectual disability, as well as hypertension presents to the hospital with weakness found to have possibly UTI as well as pneumonia # community-acquired pneumonia Not septic, not hypoxic evidence of pneumonia on chest CT Continue IV antibiotics Pending blood cultures # acute UTI Pending cultures treat with IV antibiotics follow cultures # generalized weakness Likely secondary to infection PT evaluation # kidney cysts concerning for possible hemorrhagic Pending ultrasound consider urology consult DVT prophylaxis SCDs Pt will require overnight hospital stay for IV antibiotics, as well as evaluation of these cysts concerning for hemorrhage Quality Stroke Does the patient have a stroke diagnosis?: No VTE Prior VTE?: No VTE Risk Level:: Medical - moderate - high VTE Device Contraindication: N/A - Device Ordered VTE Drug Contraindication: Treatment Not Indicated
[2022-01-18] MEDS: Magnesium Sulfate/H2O 2 GM/50 ML PIGGYBACK IV (11:28)
[2022-01-18] MEDS: risperiDONE 0.5 MG TABLET PO ×2 (11:29→19:26)
[2022-01-18] MEDS: OXcarbazepine 300 MG TABLET PO ×3 (11:29→19:32)
--- NOTE | 2022-01-18 12:45 | PM.CNNEP ---
History of Present Illness Reason for Consult Consult date: 01/18/22 Reason for consult: Renal Cysts Chief Complaint Chief complaint: Weakness, PNA History of Present Illness Narrative: Mr. Neo Hawkins is a 42-year-old gentleman with past medical history of cerebral palsy, hypertension, GERD, who presented with abdominal pain. He was found to have renal cysts bilaterally with concern for one hemorrhagic cyst. The patient is unable to tell me about his family history especially when it comes to renal disease or even family history of polycystic kidneys. On arrival to the ED patient is hemodynamically stable no significant abnormal vitals Labs are significant for WBC count of 10.1, hemoglobin of 12.9, hematocrit 37.8, Magnesium of 1.0, AST of 72, ALT of 163, alk-phos of 295, UA that is positive for leukocyte Estrace and the some WBC Chest CT shows mild interstitial haziness at lung bases bilaterally which is nonspecific, also left renal cyst including 1.8 cm partially hyperdense protruding from the lower pole left kidney and hyperdense structure 1.4 cm in the middle pole of left kidney which could be hemorrhagic and or complex cyst. Review of Systems Review of Systems Constitutional: Positive Fever, No Chills ENT/Mouth: No Ear Pain, No Hoarseness, No sore throat Eyes: No Eye Pain, No Swelling, No Redness, No Foreign Body Cardiovascular: No Chest Pain, No SOB Respiratory: Positive Cough, No Dyspnea Gastrointestinal: No Nausea, No Vomiting, No Diarrhea, positive abdominal Pain Genitourinary: No Dysuria, No Hematuria Musculoskeletal: positive hip and right back pain, No Myalgias, No Joint Swelling Skin: No Skin lacerations, No rash Neuro: No Weakness, No Numbness, No Paresthesias, No Loss of Consciousness, No Dizziness, No Headache Psych: No Anxiety/Panic, No Depression Heme/Lymph: no easy bruising, no Lymphadenopathy Endocrine: No Polyuria, No Polydipsia [facility] Past Medical History Medical History (Updated 01/18/22 @ 06:23 by Yuridia Quintero MD) Cerebral palsy Hypertension Intellectual disability Family History Pertinent family history: Unknown Social History Social History Alcohol intake: never Patient Tobacco Use Status: Never used Tobacco service: No Current occupational status: disabled Meds Allergies Allergy/AdvReac Type Severity Reaction Status Date / Time No Known Allergies Allergy Verified 01/17/22 16:08 Active Medications: Current Medications Acetaminophen (Acetaminophen 325 Mg Tablet) 650 mg PO Q6H PRN PRN Reason: Pain, Mild (Pain Scale 1-3) Atorvastatin Calcium (Atorvastatin Calcium 10 Mg Tablet) 10 mg PO DAILY [facility] Last Admin: 01/18/22 08:30 Dose: 10 mg Azithromycin (Azithromycin 500 Mg Tablet) 500 mg PO Q24H [facility] Docusate Sodium (Docusate Sodium 100 Mg Capsule) 100 mg PO DAILY PRN PRN Reason: Constipation Escitalopram Oxalate (Escitalopram Oxalate 20 Mg Tablet) 20 mg PO DAILY [facility] Last Admin: 01/18/22 08:30 Dose: 20 mg Gabapentin (Gabapentin 300 Mg Capsule) 300 mg PO DAILY [facility] Last Admin: 01/18/22 08:30 Dose: 300 mg Ceftriaxone Sodium 1 gm/ (Sodium Chloride) 50 mls @ 100 mls/hr IV Q24H [facility] Lisinopril (Lisinopril 10 Mg Tablet) 10 mg PO DAILY [facility]; Protocol Last Admin: 01/18/22 08:30 Dose: 10 mg Multivitamins/Vitamin C (Multivitamin Tablet) 1 tab PO DAILY [facility] Last Admin: 01/18/22 08:30 Dose: 1 tab Non-Formulary Medication (Minocycline) 1 tab PO DAILY [facility] Nystatin (Nystatin Powder 15 Gm Bottle) 1 appl TOPICAL BID [facility]; Protocol Last Admin: 01/18/22 11:07 Dose: Not Given Omeprazole (Omeprazole 20 Mg Capsule.Dr) 20 mg PO BID@0630,1630 [facility] Ondansetron HCl (Ondansetron Hcl 4 Mg/2 Ml Vial) 4 mg IVPUSH Q8H PRN PRN Reason: Nausea and Vomiting Last Admin: 01/18/22 08:37 Dose: 4 mg Oxcarbazepine (Oxcarbazepine 300 Mg Tablet) 300 mg PO TID [facility] Last Admin: 01/18/22 11:29 Dose: 300 mg Potassium Chloride (Potassium Chloride Er 10 Meq Capsule.Er) 10 meq PO DAILY [facility] Last Admin: 01/18/22 11:28 Dose: 10 meq Risperidone (Risperidone 0.5 Mg Tablet) 0.5 mg PO BID [facility] Last Admin: 01/18/22 11:29 Dose: 0.5 mg Sodium Chloride (0.9 % Sodium Chloride Flush 3 Ml Syringe) 3 ml IVFLUSH QSHIFT [facility] Last Admin: 01/18/22 08:31 Dose: 3 ml Triamcinolone Acetonide (Triamcinolone Acet 0.1 % Oint 15 Gm Tube) 1 appl TOPICAL DAILY PRN PRN Reason: Skin Irritation Home Medications Medication Instructions Recorded Confirmed Last Taken Type atorvastatin 10 mg tablet 1 tab PO DAILY 01/17/22 01/17/22 Unknown History escitalopram oxalate 20 mg tablet 1 tab PO DAILY 01/17/22 01/17/22 Unknown History gabapentin 300 mg capsule 1 cap PO DAILY 01/17/22 01/17/22 Unknown History lisinopril 10 mg tablet 1 tab PO DAILY 01/17/22 01/17/22 Unknown History meloxicam 7.5 mg tablet 1 tab PO DAILY 01/17/22 01/17/22 Unknown History minocycline 100 mg capsule 1 tab PO DAILY 01/17/22 01/17/22 Unknown History multivitamin 1 tab PO DAILY 01/17/22 01/17/22 Unknown History oxcarbazepine 300 mg tablet 1 tab PO TID 01/17/22 01/17/22 Unknown History pantoprazole 40 mg tablet,delayed 1 tab PO DAILY 01/17/22 01/17/22 Unknown History release potassium chloride 10 mEq 1 tab PO DAILY 01/17/22 01/17/22 Unknown History tablet,extended release risperidone 0.5 mg tablet 1 tab PO BID 01/17/22 01/17/22 Unknown History triamcinolone acetonide 0.1 % 1 appl topical DAILY PRN Skin 01/17/22 01/17/22 Unknown History topical ointment Irritation Physical Exam Vital Signs: Last Vital Signs Temp 98.8 F 01/18/22 12:00 Pulse 89 01/18/22 12:00 Resp 16 01/18/22 12:00 BP 133/83 01/18/22 12:00 Pulse Ox 94 01/18/22 12:00 O2 Del Method 01/18/22 12:00 BMI result Body Mass Index 29.0 Const Other: Constitutional : Alert, interactive, not in distress Neck : Normal inspection, Supple Cardiovascular : RRR, no JVP, no lower extremity edema Respiratory : fair bilateral air entry, no crackles, wheezes or rhonchi Gastrointestinal: soft, lax, Normal bowel sounds, Non tender Skin : Warm, Dry Neurological : Alert & oriented to self and place, No focal deficit Results Lab Results Result Diagrams: 01/18/22 08:26 01/18/22 08:26 Lab results: Chemistry 01/17/22 01/18/22 17:14 08:26 Sodium 140 141 Potassium 3.9 4.0 Carbon Dioxide 26 24 BUN 21 H 12 Creatinine 0.67 0.63 Calcium 9.0 9.0 Hematology 01/17/22 01/18/22 17:14 08:26 WBC 10.1 7.2 Hgb 12.9 L 12.4 L Plt Count 174 168 Urinalysis 01/17/22 16:44 Urine Color Yellow Urine Appearance Clear Urine pH 5.5 Ur Specific St[place]ard 1.015 Urine Protein Negative Urine Glucose (UA) Negative Urine Ketones Negative Urine Blood Negative Urine Nitrite Negative Ur Leukocyte Esterase Small (1+) H Urine RBC 0-2 Urine WBC 0-5 Ur Squamous Epith Cells 0-2 Hyaline Casts 0-2 Assessment and Plan (1) Community acquired pneumonia: Status: Acute (2) Acute UTI: Status: Acute (3) Kidney cysts: Status: Acute (4) Weakness: Status: Acute Plan Mr. Neo Hawkins is a 42-year-old gentleman with past medical history of cerebral palsy, hypertension, GERD, who presented with abdominal pain. He was found to have renal cysts bilaterally with concern for one hemorrhagic cyst. 1. BL Simple renal cysts 2. acute UTI 3. Nephrolithiasi Overall I am concerned the patient may have evidence of Polycystic Kidney Disease. He does NOT have nephromegaly. However with numerous cysts bilaterally, the stones, and the UTI it raises the question. Family history is unclear. Plan: - c/w sepsis work up and treatment - no need for urological intervention - will f/u with [facility] outpatient for a PKD work up including possible MRI. Gino Garcia MD [facility] Procedures Date of Service Date of Service: 01/18/22
[2022-01-18] MEDS: Docusate Sodium 100 MG CAPSULE PO (15:41)
[2022-01-18] MEDS: Omeprazole 20 MG CAPSULE.DR PO (15:41)
[2022-01-18] MEDS: cefTRIAXone sodium 1 GM in 0.9 % Sodium Chloride 50 ML IV (18:11)
[2022-01-18] MEDS: Azithromycin 500 MG TABLET PO (22:42)
[2022-01-18] MEDS: Nystatin Powder 15 GM BOTTLE 1 APPL TOPICAL (22:44)
[2022-01-19] VITALS (7 sets, daily range): BP systolic 117–151; BP diastolic 57–93; PULSE 82–107; RESP 16–19; TEMP 36.1–37; O2SAT 94–97
[2022-01-19 05:28] LABS: Hematocrit 38.9 % (42.0-52.0); Mean Corpuscular HGB Conc 33.4 g/dl (31.0-36.0); Mean Corpuscular Hemoglobin 27.3 pg (27.0-33.0); Mean Corpuscular Volume 81.7 fL (80.0-98.0); Mean Platelet Volume 10.2 fL (9.4-12.4); Platelet Count 182 X10*3/uL (160-400); Red Blood Count 4.76 X10*6/uL (4.60-5.80); Red Cell Distribution Width 14.3 % (11.0-16.0); White Blood Count 7.8 X10*3/uL (4.8-10.8)
[2022-01-19] MEDS: Omeprazole 20 MG CAPSULE.DR PO ×2 (05:35→16:49)
[2022-01-19 05:46] LABS: Anion Gap 17 (12-20); Blood Urea Nitrogen 18 mg/dL (9-16); Calcium 9.7 mg/dL (8.4-10.2); Carbon Dioxide 27 mmol/L (22-29); Chloride 105 mmol/L (96-108); Creatinine Clr Calc Pharmacy 147.1; Estimated Glomerular Filt Rate > 60; Glucose Random 129 mg/dL (60-115); Sodium 145 mmol/L (135-145)
[2022-01-19 05:55] LABS: Magnesium 1.1 mg/dL (1.6-2.6)
[2022-01-19] MEDS: Magnesium Sulfate/H2O 2 GM/50 ML PIGGYBACK IV ×2 (06:12→08:36)
[2022-01-19] MEDS: Escitalopram Oxalate 20 MG TABLET PO (08:35)
[2022-01-19] MEDS: Gabapentin 300 MG CAPSULE PO (08:35)
[2022-01-19] MEDS: lisinopriL 10 MG TABLET PO (08:35)
[2022-01-19] MEDS: Magnesium Oxide 400 MG TABLET PO ×2 (08:35→16:49)
[2022-01-19] MEDS: OXcarbazepine 300 MG TABLET PO ×3 (08:35→21:20)
[2022-01-19] MEDS: Atorvastatin Calcium 10 MG TABLET PO (08:35)
[2022-01-19] MEDS: risperiDONE 0.5 MG TABLET PO ×2 (08:35→21:20)
[2022-01-19] MEDS: Multivitamin TABLET 1 TAB PO (08:36)
[2022-01-19] MEDS: Nystatin Powder 15 GM BOTTLE 1 APPL TOPICAL ×2 (08:40→21:27)
[2022-01-19] MEDS: 0.9 % Sodium Chloride Flush 3 ML SYRINGE IVFLUSH ×2 (08:47→21:28)
--- NOTE | 2022-01-19 10:28 | PM.DS ---
DS: Providers Provider Date of admission: 01/17/22 21:19 Primary care physician: Jessica Akins MD DS: Diagnosis Discharge Diagnosis (1) Community acquired pneumonia: Status: Acute (2) Kidney cysts: Status: Acute (3) Weakness: Status: Acute DS: Summary Hospital Course Hospital Course: Admission note HPI 42-year-old male with past medical history of cerebral palsy, hypertension, GERD, presents to the hospital from residential with reported evaluation for feeling unwell.? History is obtained from ED PA as well as his manager architectural at bedside who does not have much information S she reports that she only came into cover for her boss.? It appears the patient has had increased weakness and inability to ambulate as a result due to increased weakness and feeling unwell.? Patient usually uses walker to get around but has stopped using his walker because he is too weak.? Patient is mentally disabled at baseline, he does communicate but only yes and no, when asked about his review of system he reports yes to all my questions with no discrimination.? Unclear if he understands what I am asking him.? According to manager architectural at bedside she does report that he has been complaining of increased abdominal pain. On arrival to the ED patient is hemodynamically stable no significant abnormal vitals Labs are significant for WBC count of 10.1, hemoglobin of 12.9, hematocrit 37.8, Magnesium of 1.0, AST of 72, ALT of 163, alk-phos of 295, UA that is positive for leukocyte Estrace and the some WBC Chest CT shows mild interstitial haziness at lung bases bilaterally which is nonspecific, also left renal cyst including 1.8 cm partially hyperdense protruding from the lower pole left kidney and hyperdense structure 1.4 cm in the middle pole of left kidney which could be hemorrhagic and or complex cyst. Patient start IV antibiotics and will be admitted for further evaluation Hospital course The patient was admitted to the hospital for increased weakness. CT scan of the chest was consistent with infiltrate suggestive of pneumonia. Blood cultures remain negative as he did not require any oxygen supplement. Treated with IV antibiotics of azithromycin and ceftriaxone with good response. Urine cultures remain negative with less likely UTI as a diagnosis. His weakness improved and he will need to do physical therapy at the facility after discharge. [facility] to follow. CT scan consistent with kidney cysts. Ultrasound evaluation showed simple cysts. Evaluated by Nephrology team who recommended outpatient follow-up for further evaluation and possible MRI. Continue azithromycin and Ceftin for 5 more days Start magnesium supplement as prescribed To do physical therapy To follow with Nephrology as outpatient Time Spent with Patient Time attestation: Total time spent providing and/or coordinating discharge services: Physical Exam Vital Signs: Vital Signs: Last Vital Signs Temp 98.6 F 01/19/22 07:45 Pulse 93 01/19/22 07:45 Resp 19 01/19/22 07:45 BP 118/69 01/19/22 07:45 Pulse Ox 96 01/19/22 07:45 O2 Del Method 01/19/22 07:45 BMI result Body Mass Index 29.0 Const: Other: Constitutional : Alert, interactive, not in distress Neck : Normal inspection, Supple Cardiovascular : RRR, no JVP, no lower extremity edema Respiratory : fair bilateral air entry, no crackles, wheezes or rhonchi Gastrointestinal: soft, lax, Normal bowel sounds, Non tender Skin : Warm, Dry Neurological : Alert & oriented to self and place, weak lower extremities bilaterally with mild spasticity DS: Data Data Completed and Pending Labs on day of discharge: Laboratory Results - last 24 hr 01/19/22 01/19/22 01/19/22 05:17 05:17 05:17 WBC 7.8 RBC 4.76 Hgb 13.0 L Hct 38.9 L MCV 81.7 MCH 27.3 MCHC 33.4 RDW 14.3 Plt Count 182 MPV 10.2 Absolute Nucleated RBC 0.000 Nucleated RBC % (auto) 0.0 Sodium 145 Potassium 4.0 Chloride 105 Carbon Dioxide 27 Anion Gap 17 BUN 18 H Creatinine 0.64 Estim Creat Clear Calc 147.1 Estimated GFR > 60 Random Glucose 129 H Calcium 9.7 D Magnesium 1.1 L* Cancelled Preliminary micro results at discharge 01/17/22 17:14 Blood Culture - Preliminary Blood - Venous No growth after 24 hours. 01/17/22 17:14 Blood Culture - Preliminary Blood - Venous No growth after 24 hours. 01/17/22 17:07 Urine Culture - Preliminary Urine clean catch - Clean Catch Midstream Culture too young to evaluate. Imaging CT scan - abdomen: Radiologist's impression: ITS Impressions Abdomen/Pelvis CT 01/17/22 17:52 IMPRESSION: *Mild interstitial haziness at lung bases bilaterally nonspecific, could be sequela of prior pneumonia or mild interstitial lung disease. *Postoperative changes, sigmoid anastomosis, no CT evidence of dehiscence. *There are left renal cysts, including 1.8 cm partially hyperdense protruding from the lower pole left kidney and hyperdense structure 1.4 cm middle pole left kidney could be a hemorrhagic and/or complex cyst, this would require further investigation with follow-up imaging starting with ultrasound or contrast-enhanced CT scan. *Tiny nonobstructing 3 mm stone right kidney. No hydronephrosis. Chest CT 01/17/22 17:52 IMPRESSION: *Mild interstitial haziness at lung bases bilaterally nonspecific, could be sequela of prior pneumonia or mild interstitial lung disease. *Postoperative changes, sigmoid anastomosis, no CT evidence of dehiscence. *There are left renal cysts, including 1.8 cm partially hyperdense protruding from the lower pole left kidney and hyperdense structure 1.4 cm middle pole left kidney could be a hemorrhagic and/or complex cyst, this would require further investigation with follow-up imaging starting with ultrasound or contrast-enhanced CT scan. *Tiny nonobstructing 3 mm stone right kidney. No hydronephrosis. Renal Ultrasound 01/18/22 08:53 IMPRESSION: Bilateral renal cysts appear simple on ultrasound. No soft tissue renal lesion. No hydronephrosis or nephrolithiasis identified. Discharge Plan Discharge Anticipated Discharge Date/Time: 01/19/22 10:22 Patient Disposition: Home Health Service Discharge Diagnosis: Pneumonia Physical deconditioning Referrals: [facility] [Other] - 1 Week Jessica Akins MD [Primary Care Provider] - 1 Week Discharge Medications: New magnesium oxide 400 mg (241.3 mg magnesium) Tablet 400 mg PO BIDPC Qty: 60 0RF nystatin 100,000 unit/gram Powder 1 appl topical BID 7 Days Qty: 30 1RF Protocol: Apply to: Apply to: groin azithromycin 500 mg Tablet 500 mg PO Q24H 5 Days Qty: 5 0RF cefuroxime axetil 500 mg tablet 500 mg PO BID Qty: 10 0RF Continued multivitamin Tablet 1 tab PO DAILY atorvastatin 10 mg tablet 1 tab PO DAILY minocycline 100 mg capsule 1 tab PO DAILY potassium chloride 10 mEq tablet extended release 1 tab PO DAILY oxcarbazepine 300 mg tablet 1 tab PO TID meloxicam 7.5 mg tablet 1 tab PO DAILY pantoprazole 40 mg tablet,delayed release (DR/EC) 1 tab PO DAILY triamcinolone acetonide 0.1 % ointment 1 appl topical DAILY PRN (Reason: Skin Irritation) lisinopril 10 mg tablet 1 tab PO DAILY gabapentin 300 mg capsule 1 cap PO DAILY risperidone 0.5 mg tablet 1 tab PO BID escitalopram oxalate 20 mg tablet 1 tab PO DAILY Discharge Orders: Discharge Order (Routine); Ordered 01/19/22 Ordered By: Jp Dennis Diet: Advance to usual diet Activity on Discharge: As tolerated Stand Alone Forms: Patient Portal Discharge page Care Plan Goals: Read below Health Concerns: Read below Plan of Treatment: Read below Assessment: You were admitted to the hospital for evaluation of increased weakness. Noted to have a pneumonia. Treated with IV antibiotics as blood cultures remain negative. Found to have low magnesium level requiring replacement. Continue azithromycin and Ceftin for 5 more days Start magnesium supplement as prescribed To do physical therapy Patient Instructions: Community Acquired Pneumonia (ED)
--- NOTE | 2022-01-19 10:31 | P.F2F_ITS ---
Service Date Service Date: 01/19/22 Encounter Date of encounter: 01/19/22 Reasons for Services Signs and symptoms assessed: Physical deconditioning Reason for physical therapy: home safety and mobility and therapeutic exercises Homebound: Leaving the home is medically contraindicated at this time without the asist of a device and/or another person due th the listed conditions above and below. Reason homebound: unsteady gait / fall risk Certification: Based on the above findings, I certify that this patient is confined to the home and needs intermittent correction care, physical therapy and/or speech therapy, or continues to need occupational therapy. The patient is under my care, and I have initiated the establishment of the plan of care. The patient will be followed by a physician who will periodically review the plan of care.
--- NOTE | 2022-01-19 11:48 | PM.PNNEP ---
Subjective Subjective Date of Service: 01/19/22 Interval history: no events GFR stable Physical Exam Vital Signs: Vital Signs: Last Vital Signs Temp 97.8 F 01/19/22 11:20 Pulse 96 01/19/22 11:20 Resp 18 01/19/22 11:20 BP 125/75 01/19/22 11:20 Pulse Ox 95 01/19/22 11:20 O2 Del Method 01/19/22 11:20 BMI result Body Mass Index 29.0 Const: Other: Constitutional : Alert, interactive, not in distress Neck : Normal inspection, Supple Cardiovascular : RRR, no JVP, no lower extremity edema Respiratory : fair bilateral air entry, no crackles, wheezes or rhonchi Gastrointestinal: soft, lax, Normal bowel sounds, Non tender Skin : Warm, Dry Neurological : Alert & oriented to self and place, No focal deficit Objective Data Labs CBC & Chem 7: 01/19/22 05:17 01/19/22 05:17 Labs: Laboratory Results - last 24 hr 01/19/22 01/19/22 01/19/22 05:17 05:17 05:17 WBC 7.8 RBC 4.76 Hgb 13.0 L Hct 38.9 L MCV 81.7 MCH 27.3 MCHC 33.4 RDW 14.3 Plt Count 182 MPV 10.2 Absolute Nucleated RBC 0.000 Nucleated RBC % (auto) 0.0 Sodium 145 Potassium 4.0 Chloride 105 Carbon Dioxide 27 Anion Gap 17 BUN 18 H Creatinine 0.64 Estim Creat Clear Calc 147.1 Estimated GFR > 60 Random Glucose 129 H Calcium 9.7 D Magnesium 1.1 L* Cancelled Microbiology Microbiology Results: Microbiology 01/17/22 17:14 Blood - Venous Blood Culture - Preliminary No growth after 24 hours. 01/17/22 17:14 Blood - Venous Blood Culture - Preliminary No growth after 24 hours. 01/17/22 17:07 Urine clean catch - Clean Catch Midstream Urine Culture - Preliminary Culture too young to evaluate. Procedures Date of Service Date of Service: 01/19/22 Assessment & Plan Assessment and plan (1) Community acquired pneumonia: Status: Acute (2) Acute UTI: Status: Acute (3) Kidney cysts: Status: Acute (4) Weakness: Status: Acute Plan Mr. Neo Hawkins is a 42-year-old gentleman with past medical history of cerebral palsy, hypertension, GERD, who presented with abdominal pain. He was found to have renal cysts bilaterally with concern for one hemorrhagic cyst. 1. BL Simple renal cysts 2. acute UTI 3. Nephrolithiasi Overall I am concerned the patient may have evidence of Polycystic Kidney Disease. He does NOT have nephromegaly. However with numerous cysts bilaterally, the stones, and the UTI it raises the question. Family history is unclear. Plan: - GFR so far stable, no interventions required. - will f/u with [facility] outpatient for a PKD work up including possible MRI. Gino Garcia MD [facility] Time Spent With Patient Time: Total time spent is greater than 50% in coordination of care (as documented) at patient's floor/unit and/or counseling patient: Progress Note: Quality Stroke Does the patient have a stroke diagnosis?: No
--- NOTE | 2022-01-19 12:54 | MHC.CM.PN ---
THIS DAIRY HAND SPOKE WITH REFRACTORY TECHNICIAN VIJI ([phone]) VIJI STATES THAT NO PERSON FROM CASE MANAGEMENT TOLD HER THAT THE PATIENT HAD TO GO BACK WITH [facility]. VIJI STATES THAT HAD SHE KNOWN THIS, SHE WOULD HAVE INFORMED CM THAT THIS IS NOT POSSIBLE AND THAT PATIENT WOULD HAVE TO GO TO REHAB VIJI IS ON HER WAY IN WITH HIS BRACES, WALKER, AND MEDICATION SIGN-OFF SHEET. T/W TO DISCUSS REHAB OPTIONS UPON ARRIVAL. [facility] MADE AWARE IN [facility].
--- NOTE | 2022-01-19 13:38 | HO.PM.IMPN ---
Subjective Subjective Date of Service: 01/19/22 Interval History: the patient was seen and evaluated this morning Laying in bed, feels comfortable but Increased weakness in lower extremities No reported other overnight events. Systemic review: No fever, chills or weakness No chest pain, palpitation Reporting improved breathing No abdominal pain, nausea or vomiting No urinary symptoms No any rash or wounds Physical Exam Vital Signs: Vital Signs: Last Vital Signs Temp 97.8 F 01/19/22 11:20 Pulse 96 01/19/22 11:20 Resp 18 01/19/22 11:20 BP 125/75 01/19/22 11:20 Pulse Ox 95 01/19/22 11:20 O2 Del Method 01/19/22 11:20 BMI result Body Mass Index 29.0 Const: Other: Constitutional : Alert, interactive, not in distress Neck : Normal inspection, Supple Cardiovascular : RRR, no JVP, no lower extremity edema Respiratory : fair bilateral air entry, no crackles, wheezes or rhonchi Gastrointestinal: soft, lax, Normal bowel sounds, Non tender Skin : Warm, Dry Neurological : Alert & oriented to self and place, weak lower extremities bilaterally with mild spasticity Objective Data Active Medications Acetaminophen (Acetaminophen 325 Mg Tablet) 650 mg PO Q6H PRN PRN Reason: Pain, Mild (Pain Scale 1-3) Atorvastatin Calcium (Atorvastatin Calcium 10 Mg Tablet) 10 mg PO DAILY [facility] Last Admin: 01/19/22 08:35 Dose: 10 mg Documented By: MAGDALENO Azithromycin (Azithromycin 500 Mg Tablet) 500 mg PO Q24H [facility] Last Admin: 01/18/22 22:42 Dose: 500 mg Documented By: WILMA Docusate Sodium (Docusate Sodium 100 Mg Capsule) 100 mg PO DAILY PRN PRN Reason: Constipation Last Admin: 01/18/22 15:41 Dose: 100 mg Documented By: COTEMA Escitalopram Oxalate (Escitalopram Oxalate 20 Mg Tablet) 20 mg PO DAILY [facility] Last Admin: 01/19/22 08:35 Dose: 20 mg Documented By: MAGDALENO Gabapentin (Gabapentin 300 Mg Capsule) 300 mg PO DAILY [facility] Last Admin: 01/19/22 08:35 Dose: 300 mg Documented By: MAGDALENO Ceftriaxone Sodium 1 gm/ (Sodium Chloride) 50 mls @ 100 mls/hr IV Q24H [facility] Last Infusion: 01/18/22 18:41 Dose: 0 mls/hr Documented By: YENY Lisinopril (Lisinopril 10 Mg Tablet) 10 mg PO DAILY [facility]; Protocol Last Admin: 01/19/22 08:35 Dose: 10 mg Documented By: MAGDALENO Magnesium Oxide (Magnesium Oxide 400 Mg Tablet) 400 mg PO BIDPC [facility] Last Admin: 01/19/22 08:35 Dose: 400 mg Documented By: MAGDALENO Minocycline HCl (Minocycline Hcl 50 Mg Capsule) 100 mg PO DAILY [facility] Last Admin: 01/19/22 11:50 Dose: 100 mg Documented By: MAGDALENO Multivitamins/Vitamin C (Multivitamin Tablet) 1 tab PO DAILY [facility] Last Admin: 01/19/22 08:36 Dose: 1 tab Documented By: MAGDALENO Nystatin (Nystatin Powder 15 Gm Bottle) 1 appl TOPICAL BID [facility]; Protocol Last Admin: 01/19/22 08:40 Dose: 1 appl Documented By: MAGDALENO Omeprazole (Omeprazole 20 Mg Capsule.Dr) 20 mg PO BID@0630,1630 [facility] Last Admin: 01/19/22 05:35 Dose: 20 mg Documented By: WILMA Ondansetron HCl (Ondansetron Hcl 4 Mg/2 Ml Vial) 4 mg IVPUSH Q8H PRN PRN Reason: Nausea and Vomiting Last Admin: 01/18/22 15:41 Dose: 4 mg Documented By: YENY Oxcarbazepine (Oxcarbazepine 300 Mg Tablet) 300 mg PO TID [facility] Last Admin: 01/19/22 08:35 Dose: 300 mg Documented By: MAGDALENO Potassium Chloride (Potassium Chloride Er 10 Meq Capsule.Er) 10 meq PO DAILY [facility] Last Admin: 01/19/22 08:35 Dose: 10 meq Documented By: MAGDALENO Risperidone (Risperidone 0.5 Mg Tablet) 0.5 mg PO BID [facility] Last Admin: 01/19/22 08:35 Dose: 0.5 mg Documented By: MAGDALENO Sodium Chloride (0.9 % Sodium Chloride Flush 3 Ml Syringe) 3 ml IVFLUSH QSHIFT [facility] Last Admin: 01/19/22 08:47 Dose: 3 ml Documented By: MAGDALENO Triamcinolone Acetonide (Triamcinolone Acet 0.1 % Oint 15 Gm Tube) 1 appl TOPICAL DAILY PRN PRN Reason: Skin Irritation Labs CBC & Chem 7: 01/19/22 05:17 01/19/22 05:17 Labs: Laboratory Results - last 24 hr 01/19/22 01/19/22 01/19/22 05:17 05:17 05:17 MCV 81.7 MCH 27.3 MCHC 33.4 RDW 14.3 Plt Count 182 MPV 10.2 Absolute Nucleated RBC 0.000 Nucleated RBC % (auto) 0.0 Anion Gap 17 Estim Creat Clear Calc 147.1 Estimated GFR > 60 Random Glucose 129 H Calcium 9.7 D Magnesium 1.1 L* Cancelled Microbiology Microbiology Results: Microbiology 01/17/22 17:07 Urine Culture - Final Urine clean catch - Clean Catch Midstream 01/17/22 17:14 Blood Culture - Preliminary Blood - Venous No growth after 24 hours. 01/17/22 17:14 Blood Culture - Preliminary Blood - Venous No growth after 24 hours. Assessment and Plan (1) Kidney cysts: Status: Acute (2) Community acquired pneumonia: Status: Acute Plan 42-year-old male with past medical history of cerebral palsy, intellectual disability, as well as hypertension presents to the hospital with weakness found to have possibly UTI as well as pneumonia # community-acquired pneumonia Not septic, not hypoxic evidence of pneumonia on chest CT Continue IV antibiotics Negative blood cultures # UTI Seems less likely with no symptoms and Negative cultures On antibiotics # generalized weakness Likely secondary to infection PT evaluation, will need placement at SNF # kidney cysts concerning for possible hemorrhagic ultrasound showing simple cyst Nephrology input appreciated, to be followed as outpatient for further evaluation and possible MRI DVT prophylaxis SCDs Pt will require overnight hospital stay pending safe discharge plan to [facility] Quality Stroke Does the patient have a stroke diagnosis?: No VTE Prior VTE?: No VTE Risk Level:: Medical - moderate - high VTE Device Contraindication: N/A - Device Ordered VTE Drug Contraindication: Treatment Not Indicated
--- NOTE | 2022-01-19 14:02 | MHC.CM.PN ---
Addendum entered by Taisha Burns RN 01/19/22 15:25: [facility] TO FAX GUARDIAN[employer]IP AND AUTHORIZED REP FORMS TO THIS [employer] AND THEN THEY WILL BE UPLOADED INTO [facility] Addendum entered by Taisha Burns RN 01/19/22 15:06: [facility] WILLING TO ACCEPT PENDING PASRR DETERMINATION. FORMS COMPLETED. AWAITING DDS AND CHD INFO FROM [facility] (MESSAGE LEFT AT [phone]) FORM TO BE FAXED ON Wednesday01/20/22 Original Note: PER CONVERSATION WITH [facility] ([phone]) REFERRAL PLACED TO THE [facility] PATIENT'S CHD RN IS [place]. WILL NEED COPY OF HCP OR GUARDIAN[employer]IP AND COVID INFORMATION. CM FOLLOWING
[2022-01-19 16:27] LABS: Glucose, Whole Blood 116 mg/dL (60-115)
[2022-01-19] MEDS: cefTRIAXone sodium 1 GM in 0.9 % Sodium Chloride 50 ML IV (17:16)
[2022-01-19] MEDS: Acetaminophen 325 MG TABLET 650 MG PO (17:16)
[2022-01-19 20:26] LABS: Glucose, Whole Blood 111 mg/dL (60-115)
[2022-01-19] MEDS: Azithromycin 500 MG TABLET PO (21:20)
[2022-01-20] VITALS (7 sets, daily range): BP systolic 111–153; BP diastolic 58–87; PULSE 96–110; RESP 18; TEMP 36.3–36.6; O2SAT 93–98
[2022-01-20] MEDS: Omeprazole 20 MG CAPSULE.DR PO ×2 (06:31→16:39)
[2022-01-20] MEDS: Magnesium Oxide 400 MG TABLET PO ×2 (09:12→16:39)
[2022-01-20] MEDS: 0.9 % Sodium Chloride Flush 3 ML SYRINGE IVFLUSH ×3 (09:12→20:56)
[2022-01-20] MEDS: Multivitamin TABLET 1 TAB PO (09:12)
[2022-01-20] MEDS: lisinopriL 10 MG TABLET PO (09:12)
[2022-01-20] MEDS: Atorvastatin Calcium 10 MG TABLET PO (09:12)
[2022-01-20] MEDS: Gabapentin 300 MG CAPSULE PO (09:12)
[2022-01-20] MEDS: Acetaminophen 325 MG TABLET 650 MG PO (09:12)
[2022-01-20] MEDS: OXcarbazepine 300 MG TABLET PO ×3 (09:12→20:55)
[2022-01-20] MEDS: Escitalopram Oxalate 20 MG TABLET PO (09:12)
[2022-01-20] MEDS: risperiDONE 0.5 MG TABLET PO ×2 (09:12→20:55)
[2022-01-20] MEDS: Nystatin Powder 15 GM BOTTLE 1 APPL TOPICAL ×2 (09:13→21:01)
--- NOTE | 2022-01-20 09:40 | PM.PNNEP ---
Subjective Subjective Date of Service: 01/22/22 Interval history: Events ntoed Doin gbetter Systemic review: No fever, chills or weakness No chest pain, palpitation Reporting improved breathing No abdominal pain, nausea or vomiting No urinary symptoms No any rash or wounds Physical Exam Vital Signs: Vital Signs: Last Vital Signs Temp 97.8 F 01/20/22 08:00 Pulse 99 01/20/22 08:00 Resp 18 01/20/22 08:00 BP 117/87 01/20/22 08:00 Pulse Ox 98 01/20/22 08:00 O2 Del Method 01/20/22 08:00 BMI result Body Mass Index 29.0 Const: Other: Constitutional : Alert, interactive, not in distress Neck : Normal inspection, Supple Cardiovascular : RRR, no JVP, no lower extremity edema Respiratory : fair bilateral air entry, no crackles, wheezes or rhonchi Gastrointestinal: soft, lax, Normal bowel sounds, Non tender Skin : Warm, Dry Neurological : Alert & oriented to self and place, No focal deficit Objective Data Labs CBC & Chem 7: 01/21/22 08:52 01/22/22 05:49 Labs: Laboratory Results - last 24 hr 01/19/22 01/19/22 15:50 20:21 POC Glucose 116 H 111 Microbiology Microbiology Results: Microbiology 01/17/22 17:14 Blood - Venous Blood Culture - Preliminary No growth after 48 hours. 01/17/22 17:14 Blood - Venous Blood Culture - Preliminary No growth after 48 hours. 01/17/22 17:07 Urine clean catch - Clean Catch Midstream Urine Culture - Final Procedures Date of Service Date of Service: 01/21/22 Assessment & Plan Assessment and plan (1) Kidney cysts: Status: Acute (2) Community acquired pneumonia: Status: Acute Plan 42-year-old male with past medical history of cerebral palsy, intellectual disability, as well as hypertension presents to the hospital with weakness found to have possibly UTI as well as pneumonia # community-acquired pneumonia Not septic, not hypoxic evidence of pneumonia on chest CT Continue IV antibiotics Negative blood cultures # UTI Seems less likely with no symptoms and Negative cultures On antibiotics # generalized weakness Likely secondary to infection PT evaluation, will need placement at SNF # kidney cysts concerning for possible hemorrhagic ultrasound showing simple cyst outpatient follow up as needed DVT prophylaxis SCDs Time Spent With Patient Time: Total time spent is greater than 50% in coordination of care (as documented) at patient's floor/unit and/or counseling patient: Progress Note: Quality Stroke Does the patient have a stroke diagnosis?: No
--- NOTE | 2022-01-20 10:08 | MHC.CM.PN ---
MESSAGE LEFT AT DDS OFFICE [phone] INFORMING OF ANTICIPATED LESS THAN 30 DAY ADMISSION TO [facility] PASRR LEVEL 1 EMAILED TO [email or web address] (EMAIL INFO GIVEN BY DEB OF [facility] OFFICE) [facility] FAX IS NOT ABLE TO ACCEPT DOCUMENTS ACCORDING TO OUTGOING MESSAGE LEVEL 1 [facility]
--- NOTE | 2022-01-20 11:00 | HO.PM.IMPN ---
Subjective Subjective Date of Service: 01/20/22 Interval History: the patient was seen and evaluated this morning Laying in bed, feels comfortable Reporting weakness in lower extremities No reported other overnight events. Systemic review: No fever, chills or weakness No chest pain, palpitation Reporting improved breathing No abdominal pain, nausea or vomiting No urinary symptoms No any rash or wounds Physical Exam Vital Signs: Vital Signs: Last Vital Signs Temp 97.8 F 01/20/22 08:00 Pulse 99 01/20/22 08:00 Resp 18 01/20/22 08:00 BP 117/87 01/20/22 08:00 Pulse Ox 98 01/20/22 08:00 O2 Del Method 01/20/22 08:00 BMI result Body Mass Index 29.0 Const: Other: Constitutional : Alert, interactive, not in distress Neck : Normal inspection, Supple Cardiovascular : RRR, no JVP, no lower extremity edema Respiratory : fair bilateral air entry, no crackles, wheezes or rhonchi Gastrointestinal: soft, lax, Normal bowel sounds, Non tender Skin : Warm, Dry Neurological : Alert & oriented to self and place, weak lower extremities bilaterally with mild spasticity Objective Data Active Medications Acetaminophen (Acetaminophen 325 Mg Tablet) 650 mg PO Q6H PRN PRN Reason: Pain, Mild (Pain Scale 1-3) Last Admin: 01/20/22 09:12 Dose: 650 mg Documented By: MONTSERRAT Atorvastatin Calcium (Atorvastatin Calcium 10 Mg Tablet) 10 mg PO DAILY [facility] BEDS AT [facility] Last Admin: 01/20/22 09:12 Dose: 10 mg Documented By: MONTSERRAT Azithromycin (Azithromycin 500 Mg Tablet) 500 mg PO Q24H [facility] 234 BEDS AT THE [facility] Last Admin: 01/19/22 21:20 Dose: 500 mg Documented By: JOSEF Docusate Sodium (Docusate Sodium 100 Mg Capsule) 100 mg PO DAILY PRN PRN Reason: Constipation Last Admin: 01/18/22 15:41 Dose: 100 mg Documented By: COTEMA Escitalopram Oxalate (Escitalopram Oxalate 20 Mg Tablet) 20 mg PO DAILY [facility] 234 BEDS AT THE [facility] Last Admin: 01/20/22 09:12 Dose: 20 mg Documented By: MONTSERRAT Gabapentin (Gabapentin 300 Mg Capsule) 300 mg PO DAILY [facility] 234 BEDS AT THE [facility] Last Admin: 01/20/22 09:12 Dose: 300 mg Documented By: MONTSERRAT Ceftriaxone Sodium 1 gm/ (Sodium Chloride) 50 mls @ 100 mls/hr IV Q24H [facility] 234 BEDS AT THE [facility] Last Infusion: 01/19/22 18:01 Dose: 0 mls/hr Documented By: DIAZDEM Lisinopril (Lisinopril 10 Mg Tablet) 10 mg PO DAILY [facility] 234 BEDS AT [facility]; Protocol Last Admin: 01/20/22 09:12 Dose: 10 mg Documented By: MONTSERRAT Magnesium Oxide (Magnesium Oxide 400 Mg Tablet) 400 mg PO BIDPC [facility]S [facility]CLUDE 234 BEDS AT THE [facility] Last Admin: 01/20/22 09:12 Dose: 400 mg Documented By: MONTSERRAT Minocycline HCl (Minocycline Hcl 50 Mg Capsule) 100 mg PO DAILY [facility] 234 BEDS AT [facility] Last Admin: 01/20/22 09:11 Dose: 100 mg Documented By: MONTSERRAT Multivitamins/Vitamin C (Multivitamin Tablet) 1 tab PO DAILY [facility] 234 BEDS AT [facility] Last Admin: 01/20/22 09:12 Dose: 1 tab Documented By: MONTSERRAT Nystatin (Nystatin Powder 15 Gm Bottle) 1 appl TOPICAL BID [facility] 234 BEDS AT [facility]; Protocol Last Admin: 01/20/22 09:13 Dose: 1 appl Documented By: MONTSERRAT Omeprazole (Omeprazole 20 Mg Capsule.Dr) 20 mg PO BID@0630,1630 [facility] 234 BEDS AT [facility] Last Admin: 01/20/22 06:31 Dose: 20 mg Documented By: JOSEF Ondansetron HCl (Ondansetron Hcl 4 Mg/2 Ml Vial) 4 mg IVPUSH Q8H PRN PRN Reason: Nausea and Vomiting Last Admin: 01/18/22 15:41 Dose: 4 mg Documented By: COTMOOKIE Oxcarbazepine (Oxcarbazepine 300 Mg Tablet) 300 mg PO TID [facility] 234 BEDS AT [facility] Last Admin: 01/20/22 09:12 Dose: 300 mg Documented By: MONTSERRAT Potassium Chloride (Potassium Chloride Er 10 Meq Capsule.Er) 10 meq PO DAILY [facility] 234 BEDS AT [facility] Last Admin: 01/20/22 09:12 Dose: 10 meq Documented By: MONTSERRAT Risperidone (Risperidone 0.5 Mg Tablet) 0.5 mg PO BID [facility] 234 BEDS AT [facility] Last Admin: 01/20/22 09:12 Dose: 0.5 mg Documented By: MONTSERRAT Sodium Chloride (0.9 % Sodium Chloride Flush 3 Ml Syringe) 3 ml IVFLUSH QSHIFT [facility]S [facility]CLUDE 234 BEDS AT THE [facility] Last Admin: 01/20/22 09:12 Dose: 3 ml Documented By: HO.PRESTOS Triamcinolone Acetonide (Triamcinolone Acet 0.1 % Oint 15 Gm Tube) 1 appl TOPICAL DAILY PRN PRN Reason: Skin Irritation Labs CBC & Chem 7: 01/19/22 05:17 01/19/22 05:17 Labs: Laboratory Results - last 24 hr 01/19/22 01/19/22 15:50 20:21 POC Glucose 116 H 111 Microbiology Microbiology Results: Microbiology 01/17/22 17:14 Blood Culture - Preliminary Blood - Venous No growth after 48 hours. 01/17/22 17:14 Blood Culture - Preliminary Blood - Venous No growth after 48 hours. 01/17/22 17:07 Urine Culture - Final Urine clean catch - Clean Catch Midstream Assessment and Plan (1) Community acquired pneumonia: Status: Acute (2) Kidney cysts: Status: Acute Plan 42-year-old male with past medical history of cerebral palsy, intellectual disability, as well as hypertension presents to the hospital with weakness found to have possibly UTI as well as pneumonia # community-acquired pneumonia Not septic, not hypoxic evidence of pneumonia on chest CT Continue IV antibiotics Negative blood cultures # UTI Seems less likely with no symptoms and Negative cultures # generalized weakness Likely secondary to infection PT evaluation, will need placement at SNF # kidney cysts concerning for possible hemorrhagic ultrasound showing simple cyst Nephrology input appreciated, to be followed as outpatient for further evaluation and possible MRI DVT prophylaxis SCDs Pt will require overnight hospital stay pending safe discharge plan to SNF Quality Stroke Does the patient have a stroke diagnosis?: No VTE Prior VTE?: No VTE Risk Level:: Medical - moderate - high VTE Device Contraindication: N/A - Device Ordered VTE Drug Contraindication: Treatment Not Indicated
--- NOTE | 2022-01-20 14:50 | MHC.CM.PN ---
INTENT TO ADMIT SIGNED AND BROUGHT TO CM DIRECTOR'S OFFICE. COMPLETE ADMIT FORMS (FROM [facility]) FAXED TO FACILITY @ [phone] AND UPLOADED INTO [facility]. GUARDIAN/MOTHER IS IN ROOM WITH PATIENT AND AWARE THAT DC IS MORE LIKELY TO OCCUR ON Wednesday01/21/22
[2022-01-20] MEDS: cefTRIAXone sodium 1 GM in 0.9 % Sodium Chloride 50 ML IV (17:25)
[2022-01-20] MEDS: Azithromycin 500 MG TABLET PO (20:55)
[2022-01-21 03:17] VITALS: BP 105/63; PULSE 91; RESP 19; TEMP 36.7; O2SAT 95
[2022-01-21] MEDS: Omeprazole 20 MG CAPSULE.DR PO (04:41)
[2022-01-21 07:18] VITALS: BP 134/79; PULSE 105; RESP 18; TEMP 36.6; O2SAT 98
[2022-01-21] MEDS: Acetaminophen 325 MG TABLET 650 MG PO (08:49)
[2022-01-21] MEDS: Atorvastatin Calcium 10 MG TABLET PO (08:50)
[2022-01-21] MEDS: Nystatin Powder 15 GM BOTTLE 1 APPL TOPICAL ×2 (08:50→20:23)
[2022-01-21] MEDS: Multivitamin TABLET 1 TAB PO (08:50)
[2022-01-21] MEDS: Triamcinolone Acet 0.1 % Oint 15 GM TUBE 1 APPL TOPICAL (08:50)
[2022-01-21] MEDS: Magnesium Oxide 400 MG TABLET PO (08:50)
[2022-01-21] MEDS: lisinopriL 10 MG TABLET PO (08:50)
[2022-01-21] MEDS: Escitalopram Oxalate 20 MG TABLET PO (08:50)
[2022-01-21] MEDS: risperiDONE 0.5 MG TABLET PO ×2 (08:50→20:23)
[2022-01-21] MEDS: Gabapentin 300 MG CAPSULE PO (08:50)
[2022-01-21] MEDS: OXcarbazepine 300 MG TABLET PO ×3 (08:50→20:23)
[2022-01-21] MEDS: 0.9 % Sodium Chloride Flush 3 ML SYRINGE IVFLUSH (08:56)
[2022-01-21 09:04] LABS: Hematocrit 42.6 % (42.0-52.0); Hemoglobin 14.3 g/dl (14.0-18.0); Mean Corpuscular HGB Conc 33.6 g/dl (31.0-36.0); Mean Corpuscular Hemoglobin 27.1 pg (27.0-33.0); Mean Corpuscular Volume 80.8 fL (80.0-98.0); Mean Platelet Volume 10.3 fL (9.4-12.4); Platelet Count 195 X10*3/uL (160-400); Red Blood Count 5.27 X10*6/uL (4.60-5.80); Red Cell Distribution Width 14.1 % (11.0-16.0); White Blood Count 10.5 X10*3/uL (4.8-10.8)
[2022-01-21 09:27] LABS: Anion Gap 20 (12-20); Blood Urea Nitrogen 26 mg/dL (9-16); Calcium 9.5 mg/dL (8.4-10.2); Carbon Dioxide 24 mmol/L (22-29); Chloride 102 mmol/L (96-108); Creatinine Clr Calc Pharmacy 134.5; Estimated Glomerular Filt Rate > 60; Glucose Random 150 mg/dL (60-115); Magnesium 1.2 mg/dL (1.6-2.6); Potassium 4.4 mmol/L (3.3-5.1); Sodium 142 mmol/L (135-145)
[2022-01-21 09:43] VITALS: BP 134/79; PULSE 105; O2SAT 98
--- NOTE | 2022-01-21 09:44 | P.PNIM_ITS ---
Subjective Subjective Date of Service: 01/21/22 Interval History: cc: weakness interval history:still reports feeling weak and unwell Cardiovascular Cardiovascular: Reports no additional cardiovascular complaints Respiratory Respiratory: Reports no additional respiratory complaints Physical Exam Vital Signs: Vital Signs: Last Vital Signs Temp 97.9 F 01/21/22 07:18 Pulse 105 H 01/21/22 07:18 Resp 18 01/21/22 07:18 BP 134/79 01/21/22 07:18 Pulse Ox 98 01/21/22 07:18 O2 Del Method 01/21/22 07:18 BMI result Body Mass Index 29.0 General: AO X 3, no acute distress Resp: CTA bilateral, no accessory muscles used CVS: S1,S2,RRR GI: soft, non tender, non distended Neuro: motor grossly intact, alert Psych: appropriate affect, impaired insight Objective Data Active Medications Acetaminophen (Acetaminophen 325 Mg Tablet) 650 mg PO Q6H PRN PRN Reason: Pain, Mild (Pain Scale 1-3) Last Admin: 01/21/22 08:49 Dose: 650 mg Documented By: SHANA Atorvastatin Calcium (Atorvastatin Calcium 10 Mg Tablet) 10 mg PO DAILY [facility] Last Admin: 01/21/22 08:50 Dose: 10 mg Documented By: SHANA Azithromycin (Azithromycin 500 Mg Tablet) 500 mg PO Q24H [facility] Last Admin: 01/20/22 20:55 Dose: 500 mg Documented By: MARGARET Docusate Sodium (Docusate Sodium 100 Mg Capsule) 100 mg PO DAILY PRN PRN Reason: Constipation Last Admin: 01/18/22 15:41 Dose: 100 mg Documented By: YENY Escitalopram Oxalate (Escitalopram Oxalate 20 Mg Tablet) 20 mg PO DAILY [facility] Last Admin: 01/21/22 08:50 Dose: 20 mg Documented By: SHANA Gabapentin (Gabapentin 300 Mg Capsule) 300 mg PO DAILY [facility] Last Admin: 01/21/22 08:50 Dose: 300 mg Documented By: SHANA Ceftriaxone Sodium 1 gm/ (Sodium Chloride) 50 mls @ 100 mls/hr IV Q24H [facility] Last Infusion: 01/20/22 17:56 Dose: 0 mls/hr Documented By: MONTSERRAT Magnesium Sulfate (Magnesium Sulfate/H2o) 2 gm in 50 mls @ 25 mls/hr IV ONCE ONE Stop: 01/21/22 11:41 Lisinopril (Lisinopril 10 Mg Tablet) 10 mg PO DAILY [facility]; Protocol Last Admin: 01/21/22 08:50 Dose: 10 mg Documented By: SHANA [facility]ide ([facility]esium [facility] 400 Mg Tablet) [facility] Minocycline HCl (Minocycline Hcl 50 Mg Capsule) 100 mg PO DAILY [facility] Last Admin: 01/21/22 08:49 Dose: 100 mg Documented By: SHANA Multivitamins/Vitamin C (Multivitamin Tablet) 1 tab PO DAILY [facility] Last Admin: 01/21/22 08:50 Dose: 1 tab Documented By: SHANA Nystatin (Nystatin Powder 15 Gm Bottle) 1 appl TOPICAL BID [facility]; Protocol Last Admin: 01/21/22 08:50 Dose: 1 appl Documented By: SHANA Ondansetron HCl (Ondansetron Hcl 4 Mg/2 Ml Vial) 4 mg IVPUSH Q8H PRN PRN Reason: Nausea and Vomiting Last Admin: 01/18/22 15:41 Dose: 4 mg Documented By: YENY Oxcarbazepine (Oxcarbazepine 300 Mg Tablet) 300 mg PO TID [facility] Last Admin: 01/21/22 08:50 Dose: 300 mg Documented By: SHANA Potassium Chloride (Potassium Chloride Er 10 Meq Capsule.Er) 10 meq PO DAILY [facility] Last Admin: 01/21/22 08:49 Dose: 10 meq Documented By: SHANA Risperidone (Risperidone 0.5 Mg Tablet) 0.5 mg PO BID [facility] Last Admin: 01/21/22 08:50 Dose: 0.5 mg Documented By: SHANA Sodium Chloride (0.9 % Sodium Chloride Flush 3 Ml Syringe) 3 ml IVFLUSH QSHIFT [facility] Last Admin: 01/21/22 08:56 Dose: 3 ml Documented By: SHANA Triamcinolone Acetonide (Triamcinolone Acet 0.1 % Oint 15 Gm Tube) 1 appl TOPICAL DAILY PRN PRN Reason: Skin Irritation Last Admin: 01/21/22 08:50 Dose: 1 appl Documented By: SHANA Labs CBC & Chem 7: 01/21/22 08:52 01/21/22 08:52 Labs: Laboratory Results - last 24 hr 01/21/22 01/21/22 08:52 08:52 MCV 80.8 MCH 27.1 MCHC 33.6 RDW 14.1 Plt Count 195 MPV 10.3 Absolute Nucleated RBC 0.000 Nucleated RBC % (auto) 0.0 Anion Gap 20 Estim Creat Clear Calc 134.5 Estimated GFR > 60 Random Glucose 150 H Calcium 9.5 Magnesium 1.2 L* Assessment and Plan (1) Community acquired pneumonia: Status: Acute (2) Kidney cysts: Status: Acute Plan 42-year-old male with past medical history of cerebral palsy, intellectual disability, as well as hypertension presented to the hospital with weakness found to have ?pneumonia, hypomagnesemia possible community-acquired pneumonia Not septic, not hypoxic evidence of pneumonia on chest CT Continue rocephin/azithro day 4 Negative blood cultures hypomagnesemia 1.2 today likely contributing to weakness hold ppi replace, monitor no evidence of uti kidney cysts concerning for possible hemorrhagic ultrasound showing simple cyst Nephrology input appreciated, to be followed as outpatient for further evaluation and possible MRI HTN lisinopril hld statin cerebral palsy with intellectual delay and behaviour abnormalities continue lexpro, trileptal DVT prophylaxis SCDs (in case cyst hemorrhagic) reason for continued hospitalization:severe hypomagensemia causing weakness, requiring iv and po supplement with close monitoring Quality Stroke Does the patient have a stroke diagnosis?: No VTE Prior VTE?: No VTE Risk Level:: Medical - moderate - high VTE Device Contraindication: N/A - Device Ordered VTE Drug Contraindication: Treatment Not Indicated
[2022-01-21] MEDS: 0.9 % Sodium Chloride 1,000 ML 100 ML IVCONT (10:15)
[2022-01-21] MEDS: Magnesium Sulfate/H2O 2 GM/50 ML PIGGYBACK IV (10:15)
[2022-01-21 11:22] VITALS: BP 133/67; PULSE 103; RESP 18; TEMP 36.8; O2SAT 92
--- NOTE | 2022-01-21 12:25 | MHC.CM.PN ---
INTENT TO ADMIT UPLOADED INTO [facility]. NO DETERMINATION FROM DDS OF THIS NOTE
--- NOTE | 2022-01-21 12:54 | MHC.CM.PN ---
Addendum entered by Taisha Burns RN 01/22/22 09:26: CORRECTION: DDS TRINA GRANT IS [phone] Addendum entered by Taisha Burns RN 01/21/22 14:35: CALL FROM DDS TRINA GRANT ([phone]) WHO STATES THAT LONG PATIENT IS DC ON A LESS THAN 30 DAY ANTICIPATED STAY AT SNF, HE IS ALL SET TO GO. JUANITA ALSO STATES THAT NO DETERMINATION LETTER WILL BE WRITTEN AND IF SNF HAS QUESTIONS, THEY CAN CALL HER JUANITA MADE AWARE THAT PATIENT WILL REMAIN TONIGHT, HAVE LABS DRAWN TOMORROW, AND HOPEFULLY DC TO [facility] AFTER THAT. [facility] MADE AWARE IN [facility]. RN MADE AWARE Original Note: PATIENT STILL WITH HYPOMAGNESEMIA CM FOLLOWING
[2022-01-21 15:47] VITALS: BP 147/92; PULSE 101; RESP 16; TEMP 36.7; O2SAT 96
[2022-01-21] MEDS: cefTRIAXone sodium 1 GM in 0.9 % Sodium Chloride 50 ML IV (17:57)
[2022-01-21] MEDS: Magnesium Oxide 400 MG TABLET 800 MG PO (17:58)
[2022-01-21 19:35] VITALS: BP 112/76; PULSE 98; RESP 16; TEMP 36.7; O2SAT 94
[2022-01-21] MEDS: Azithromycin 500 MG TABLET PO (20:23)
[2022-01-22] VITALS: BP 111/65; PULSE 100; RESP 18; TEMP 36.8; O2SAT 95
[2022-01-22 03:07] VITALS: BP 116/60; PULSE 90; RESP 18; TEMP 36.4; O2SAT 96
[2022-01-22 06:20] LABS: Anion Gap 20 (12-20); Blood Urea Nitrogen 21 mg/dL (9-16); Calcium 9.1 mg/dL (8.4-10.2); Carbon Dioxide 23 mmol/L (22-29); Chloride 103 mmol/L (96-108); Creatinine Clr Calc Pharmacy 154.4; Estimated Glomerular Filt Rate > 60; Glucose Fasting 112 mg/dL (60-99); Magnesium 1.5 mg/dL (1.6-2.6); Potassium 4.6 mmol/L (3.3-5.1); Sodium 141 mmol/L (135-145)
[2022-01-22 07:33] VITALS: BP 135/91; PULSE 95; RESP 19; TEMP 36.1; O2SAT 97
--- NOTE | 2022-01-22 08:56 | PM.DS ---
DS: Providers Provider Date of Service: 01/22/22 Date of admission: 01/17/22 21:19 Primary care physician: Jessica Akins MD DS: Diagnosis Discharge Diagnosis (1) Community acquired pneumonia: Status: Acute (2) Kidney cysts: Status: Acute DS: Summary Hospital Course Hospital Course: Admission note HPI 42-year-old male with past medical history of cerebral palsy, hypertension, GERD, [facility] with reported evaluation for feeling unwell.? History is obtained from ED PA as well as his property caretaker at bedside who does not have much information S she reports that she only came into cover for her boss.? It appears the patient has had increased weakness and inability to ambulate as a result due to increased weakness and feeling unwell.? Patient usually uses walker to get around but has stopped using his walker because he is too weak.? Patient is mentally disabled at baseline, he does communicate but only yes and no, when asked about his review of system he reports yes to all my questions with no discrimination.? Unclear if he understands what I am asking him.? According to property caretaker at bedside she does report that he has been complaining of increased abdominal pain. On arrival to the ED patient is hemodynamically stable no significant abnormal vitals Labs are significant for WBC count of 10.1, hemoglobin of 12.9, hematocrit 37.8, Magnesium of 1.0, AST of 72, ALT of 163, alk-phos of 295, UA that is positive for leukocyte Estrace and the some WBC Chest CT shows mild interstitial haziness at lung bases bilaterally which is nonspecific, also left renal cyst including 1.8 cm partially hyperdense protruding from the lower pole left kidney and hyperdense structure 1.4 cm in the middle pole of left kidney which could be hemorrhagic and or complex cyst. Patient start IV antibiotics and will be admitted for further evaluation Hospital course The patient was admitted to the hospital for increased weakness. CT scan of the chest was consistent with infiltrate suggestive of pneumonia. Blood cultures remain negative as he did not require any oxygen supplement. Treated with IV antibiotics of azithromycin and ceftriaxone with good response. Urine cultures remain negative no evidence of UTI as a diagnosis. His weakness improved and he will need to do physical therapy at the facility after discharge. [facility] to follow. patient had severe hypomagnesemia causing his weakness, he was given supplement with improvement and will continue as outpatient, ppi will be held. CT scan consistent with kidney cysts. Ultrasound evaluation showed simple cysts. Evaluated by Nephrology team who recommended outpatient follow-up for further evaluation and possible MRI. for his hypertension he was continued on lisinopril, for his hyperlipidemia he was continued on statin, for cerebral palsy with intellectual delay and mood disorder he was continued on lexapro and trileptal. pateint will be discharged to SNF, he is expected to require less than 30 days. Continue azithromycin and Ceftin for 5 more days Start magnesium supplement as prescribed To do physical therapy To follow with Nephrology as outpatient Time Spent with Patient Time attestation: Total time spent providing and/or coordinating discharge services: Discharge coordination time: Greater than 30 minutes Quality: Safe Use of Opioids Does Pt have an Active Cancer Diagnosis on the Problem List?: No Quality: Stroke Does the patient have a stroke diagnosis?: No Physical Exam Vital Signs: Vital Signs: Last Vital Signs Temp 97.0 F 01/22/22 07:33 Pulse 95 01/22/22 07:33 Resp 19 01/22/22 07:33 BP 135/91 H 01/22/22 07:33 Pulse Ox 97 01/22/22 07:33 O2 Del Method 01/22/22 07:33 BMI result Body Mass Index 29.0 General: AO X 3, no acute distress Resp: CTA bilateral, no accessory muscles used CVS: S1,S2,RRR GI: soft, non tender, non distended Neuro: motor grossly intact, alert Psych: appropriate affect, impaired insight DS: Data Data Completed and Pending Labs on day of discharge: Laboratory Results - last 24 hr 01/21/22 01/21/22 01/22/22 08:52 08:52 05:49 WBC 10.5 RBC 5.27 Hgb 14.3 Hct 42.6 MCV 80.8 MCH 27.1 MCHC 33.6 RDW 14.1 Plt Count 195 MPV 10.3 Absolute Nucleated RBC 0.000 Nucleated RBC % (auto) 0.0 Sodium 142 141 Potassium 4.4 4.6 Chloride 102 103 Carbon Dioxide 24 23 Anion Gap 20 20 BUN 26 H 21 H Creatinine 0.70 0.61 Estim Creat Clear Calc 134.5 154.4 Estimated GFR > 60 > 60 Random Glucose 150 H Fasting Glucose 112 H Calcium 9.5 9.1 Magnesium 1.2 L* 1.5 L Preliminary micro results at discharge 01/17/22 17:14 Blood Culture - Preliminary Blood - Venous No growth after 48 hours. 01/17/22 17:14 Blood Culture - Preliminary Blood - Venous No growth after 48 hours. Discharge Plan Discharge Anticipated Discharge Date/Time: 01/22/22 08:55 Patient Disposition: Home Health Service Discharge Diagnosis: Pneumonia Physical deconditioning Referrals: [facility] [Outside] - 1 Day (SHORT TERM REHAB) Jessica Akins MD [Primary Care Provider] - 1 Week Discharge Medications: New magnesium oxide 400 mg (241.3 mg magnesium) Tablet 400 mg PO BIDPC Qty: 60 0RF nystatin 100,000 unit/gram Powder 1 appl topical BID 7 Days Qty: 30 1RF Protocol: Apply to: Apply to: groin azithromycin 500 mg Tablet 500 mg PO Q24H 5 Days Qty: 5 0RF cefuroxime axetil 500 mg tablet 500 mg PO BID Qty: 10 0RF Continued multivitamin Tablet 1 tab PO DAILY atorvastatin 10 mg tablet 1 tab PO DAILY minocycline 100 mg capsule 1 tab PO DAILY potassium chloride 10 mEq tablet extended release 1 tab PO DAILY oxcarbazepine 300 mg tablet 1 tab PO TID meloxicam 7.5 mg tablet 1 tab PO DAILY triamcinolone acetonide 0.1 % ointment 1 appl topical DAILY PRN (Reason: Skin Irritation) lisinopril 10 mg tablet 1 tab PO DAILY gabapentin 300 mg capsule 1 cap PO DAILY risperidone 0.5 mg tablet 1 tab PO BID escitalopram oxalate 20 mg tablet 1 tab PO DAILY Discontinued pantoprazole 40 mg tablet,delayed release (DR/EC) 1 tab PO DAILY Discharge Orders: Discharge Order (Routine); Ordered 01/22/22 Ordered By: Sudhir Foss Diet: Advance to usual diet Activity on Discharge: As tolerated Stand Alone Forms: Patient Portal Discharge page Care Plan Goals: Read below Health Concerns: Read below Plan of Treatment: Read below Assessment: You were admitted to the hospital for evaluation of increased weakness. Noted to have a pneumonia. Treated with IV antibiotics as blood cultures remain negative. Found to have low magnesium level requiring replacement. Continue azithromycin and Ceftin for 5 more days Start magnesium supplement as prescribed To do physical therapy Patient Instructions: Community Acquired Pneumonia (ED) Discharge Date/Time: 01/22/22 12:56
[2022-01-22] MEDS: Acetaminophen 325 MG TABLET 650 MG PO (09:28)
[2022-01-22] MEDS: Magnesium Sulfate/H2O 2 GM/50 ML PIGGYBACK IV (09:28)
[2022-01-22] MEDS: 0.9 % Sodium Chloride Flush 3 ML SYRINGE IVFLUSH (09:28)
[2022-01-22] MEDS: Escitalopram Oxalate 20 MG TABLET PO (09:29)
[2022-01-22] MEDS: Multivitamin TABLET 1 TAB PO (09:29)
[2022-01-22] MEDS: Nystatin Powder 15 GM BOTTLE 1 APPL TOPICAL (09:29)
[2022-01-22] MEDS: lisinopriL 10 MG TABLET PO (09:29)
[2022-01-22] MEDS: Atorvastatin Calcium 10 MG TABLET PO (09:29)
[2022-01-22] MEDS: Gabapentin 300 MG CAPSULE PO (09:29)
[2022-01-22] MEDS: Magnesium Oxide 400 MG TABLET 800 MG PO (09:29)
[2022-01-22] MEDS: risperiDONE 0.5 MG TABLET PO (09:29)
[2022-01-22] MEDS: OXcarbazepine 300 MG TABLET PO (09:29)
[2022-01-22 10:36] LABS: Influenza A PCR NEGATIVE (Negative); Influenza B PCR NEGATIVE (Negative); Resp Syncy Virus RNA Qual PCR NEGATIVE (Negative); SARS COV2 PCR INHOUSE NEGATIVE (Negative)
[2022-01-22 11:49] VITALS: BP 139/71; PULSE 85; RESP 16; TEMP 36.5; O2SAT 95
--- NOTE | 2022-01-22 12:25 | MHC.CM.PN ---
PT MEDICALLY CLEARED FOR D/C TO [facility] AT 1PM VIA BRITTANY, PT'S MOTHER/GUARDIAN HARDEEP NOTIFIED AT 1:20PM AT NUMBER ON FILE AND SHE IS AGREEABLE TO PLAN.
== END 2022-01-22 12:56 | disposition home health service (06) | DRG 194 ==
LOC: HO.ED 21:49 → HO.EDOVER 22:02 → HO.S3 01-18 07:27
PROVIDERS: Nurse Practitioner Family; Student in an Organized Health Care Education/Training Program; Admitting Provider Internal Medicine; Emergency Provider Emergency Medicine; PCP Internal Medicine; Visit Provider Internal Medicine
DX: J18.9 Pneumonia, unspecified organism (principal); Q61.3 Polycystic kidney, unspecified; I10 Essential (primary) hypertension; E83.42 Hypomagnesemia; E78.5 Hyperlipidemia, unspecified; K21.9 Gastro-esophageal reflux disease without esophagitis; G80.9 Cerebral palsy, unspecified; Z20.822 Contact with and (suspected) exposure to COVID-19; Z79.899 Other long term (current) drug therapy
CPT/HCPCS: 0241U; 36415; 71250; 74176; 76775; 80048; 80076; 81001; 82947; 83605; 83690; 83735; 85025; 85027; 85610; 85730; 87040; 87086; 93005; 96361; 96374; 96375; 97162; 97530; 99285; J0456; J0696; J2405; J3475

== ENCOUNTER 2022-02-08 15:44 | Emergency (ER) | payer MEDICARE, MEDICAID, SELFPAY ==
--- NOTE | ~2022-02-08 | XR_ITS ---
EXAMINATION: XR CHEST CLINICAL INFORMATION: Altered mental status COMPARISON: CT chest 01/17/2022 TECHNIQUE: Frontal portable view of the chest was obtained. 4:10 PM FINDINGS: No significant abnormality is noted involving the heart, lungs, mediastinum, bony thorax or soft tissues. XR/XR chest 1V IMPRESSION: Unremarkable examination.
[2022-02-08 15:54] VITALS: BP 130/70; PULSE 80; O2SAT 96
--- NOTE | 2022-02-08 16:12 | ECG_ITS ---
Test Reason : WEAKNESS Blood Pressure : / mmHG Vent. Rate : 079 BPM Atrial Rate : 079 BPM P-R Int : 152 ms QRS Dur : 092 ms QT Int : 368 ms P-R-T Axes : 021 042 036 degrees QTc Int : 421 ms Normal sinus rhythm RSR' or QR pattern in V1 suggests right ventricular conduction delay Otherwise normal ECG When compared with ECG of 17-JAN-2022 16:28, No significant change was found Referred By: Laila Matta Electronically Signed By:FEI TEMPLE MD
[2022-02-08 16:24] VITALS: BP 142/86; PULSE 80; RESP 18; TEMP 36.7; O2SAT 98; BMI 28.8
--- NOTE | 2022-02-08 16:26 | ED.AMS ---
HPI - Altered Mental Status General Chief Complaint: Weakness Stated Complaint: AMS Time Seen by Provider: 02/08/22 16:09 Source: patient and EMS Mode of arrival: EMS Limitations: physical limitation (Cerebral palsy and cognitive impairment) History of Present Illness HPI narrative: 42-year-old male presents via EMS from a nursing home for report of altered mental status and weakness. MD complaint: altered mental status and weakness Onset (ago): day(s) Timing confirmed by: caregiver Severity: mild Consistency of symptoms: constant Context: history of similar presentation Associated symptoms: diarrhea Related Data Home Medications Medication Instructions Recorded Confirmed atorvastatin 10 mg tablet 1 tab PO DAILY 01/17/22 01/17/22 escitalopram oxalate 20 mg tablet 1 tab PO DAILY 01/17/22 01/17/22 gabapentin 300 mg capsule 1 cap PO DAILY 01/17/22 01/17/22 lisinopril 10 mg tablet 1 tab PO DAILY 01/17/22 01/17/22 meloxicam 7.5 mg tablet 1 tab PO DAILY 01/17/22 01/17/22 minocycline 100 mg capsule 1 tab PO DAILY 01/17/22 01/17/22 multivitamin 1 tab PO DAILY 01/17/22 01/17/22 oxcarbazepine 300 mg tablet 1 tab PO TID 01/17/22 01/17/22 potassium chloride 10 mEq 1 tab PO DAILY 01/17/22 01/17/22 tablet,extended release risperidone 0.5 mg tablet 1 tab PO BID 01/17/22 01/17/22 triamcinolone acetonide 0.1 % 1 appl topical DAILY PRN Skin 01/17/22 01/17/22 topical ointment Irritation Previous Rx's Medication Instructions Recorded azithromycin 500 mg tablet 500 mg PO Q24H 5 days #5 tabs 01/19/22 cefuroxime axetil 500 mg tablet 500 mg PO BID #10 tabs 01/19/22 magnesium oxide 400 mg (241.3 mg 400 mg PO BIDPC #60 tabs 01/19/22 magnesium) tablet nystatin 100,000 unit/gram topical 1 appl topical BID 7 days #30 grams 01/19/22 powder Allergies Allergy/AdvReac Type Severity Reaction Status Date / Time No Known Allergies Allergy Verified 01/17/22 16:08 Review of Systems Review of Systems: Yes Unobtainable due to mental status (Cerebral palsy, cognitive impairment) [facility] Past Medical History Attestation statement: The following information was validated with the patient. Source: old records reviewed Medical History Cerebral palsy Hypertension Intellectual disability Kidney cysts Social History Social History Household Members: Other Household Members Other:: nursing home Housing: Other Housing Other:: nursing home Alcohol intake: never Patient Tobacco Use Status: Never used Tobacco Use of substances other than those prescribed or required for medical reasons: No Advance Directives: No Advance Directives Information Provided: No service: No Current occupational status: disabled Physical Exam ED Vital Signs: Vital Signs - 24 hr 02/08/22 16:24 02/08/22 17:56 02/08/22 20:26 Temperature 98.1 F 98.7 F 98.3 F Pulse Rate 80 70 78 Respiratory Rate 18 14 14 Blood Pressure 142/86 H 129/81 131/85 Pulse Oximetry 98 96 98 Oxygen Delivery Method Room Air Room Air Room Air BMI result Body Mass Index 28.8 Appearance: Alert. Oriented. Able to make needs known. Eyes: Pupils equal, round and reactive to light. ENT: Pharynx normal. Neck: Normal inspection. Neck supple. CVS: Normal heart rate and rhythm. Pulses normal. Respiratory: No respiratory distress. Breath sounds normal. Abdomen: Soft and nontender. Obese. Skin: Skin warm and dry. Normal skin color. Normal skin turgor. Extremities: Bilateral lower extremity orthotics. Neuro: No motor deficit. No sensory deficit. Cranial nerves 2-12 intact. Course Course Course Narrative: 42-year-old male with past medical history of cerebral palsy, cognitive impairment, hyperlipidemia, hypertension presents for a report of altered mental status. The patient states that he has had diarrhea, and a cough, and feels weak. He is a poor historian per baseline, but is able to make his needs known. Review of records indicates that he has had prior admission for urinary tract infection, suspicion of hemorrhagic kidney cyst, and pneumonia. He was discharged on 01/22/2022 and finished Ceftin on 01/27/2022. Will order labs, lactic, cultures, urinalysis, and x-rays. Physical exam indicates a soft nontender abdomen, no rigidity or rebound tenderness. Lung sounds are clear however patient is unable to take full deep breath possibly due to lack of understanding of instructions. The patient is pleasant and cooperative. 17:41 chest x-ray negative, EKG normal sinus. Low likelihood of ACS at this time. 17:56 critical value magnesium 1.1, order for 2 g IV. 20:40 plan of care is to discharge home. MDM - Altered Mental Status Differential Diagnosis Differential diagnosis: Likely delirium, encephalopathy, hypoglycemia, hyponatremia, renal failure and sepsis Medical Records Attestation: I reviewed the patient's medical records. Lab Data Attestation: I reviewed the patient's lab results. Result diagrams: 02/08/22 17:21 02/08/22 17:22 Labs: Lab Results 02/08/22 02/08/22 02/08/22 Range/Units 16:57 16:57 17:21 WBC 8.9 (4.8-10.8) X10*3/uL RBC 5.03 (4.60-5.80) X10*6/uL Hgb 13.5 L (14.0-18.0) g/dl Hct 40.7 L (42.0-52.0) % MCV 80.9 (80.0-98.0) fL MCH 26.8 L (27.0-33.0) pg MCHC 33.2 (31.0-36.0) g/dl RDW 13.4 (11.0-16.0) % Plt Count 197 (160-400) X10*3/uL MPV 9.4 (9.4-12.4) fL Immature Gran % (Auto) 0.3 (0.0-0.4) % Neut % (Auto) 65.3 (45-73) % Lymph % (Auto) 24.7 (20-40) % [place] % (Auto) 6.9 (2-11) % Eos % (Auto) 2.5 (0-4) % Baso % (Auto) 0.3 (0-2) % Lymph # (Auto) 2.2 (1.2-4.9) X10*3/uL [place] # (Auto) 0.6 (0.1-1.2) X10*3/uL Eos # (Auto) 0.2 (0.0-0.4) X10*3/uL Baso # (Auto) 0.0 (0.0-0.2) X10*3/uL Abs Immat Gran (auto) 0.03 (0.00-0.03) X10*3/uL Absolute Neuts (auto) 5.8 (2.0-8.3) x10*3/uL Absolute Nucleated RBC 0.000 (0.0-0.012) X10*3/uL Nucleated RBC % (auto) 0.0 (0.0-0.2) /100WBC Sodium (135-145) mmol/L Potassium (3.3-5.1) mmol/L Chloride (96-108) mmol/L Carbon Dioxide (22-29) mmol/L Anion Gap (12-20) BUN (9-16) mg/dL Creatinine (0.5-1.4) mg/dL Estim Creat Clear Calc Estimated GFR Random Glucose (60-115) mg/dL Lactic Acid (0.5-2.0) mmol/L Calcium (8.4-10.2) mg/dL Magnesium (1.6-2.6) mg/dL Total Bilirubin (0.0-1.0) mg/dL Direct Bilirubin (0.0-0.5) mg/dL AST (5-37) U/L ALT (0-40) U/L Alkaline Phosphatase (39-117) U/L Total Protein (6.5-8.0) g/dL Albumin (3.5-5.0) g/dL Lipase (8-78) U/L Urine Color Yellow Urine Appearance Clear Urine pH 6.5 (5.0-9.0) Ur Specific [place] 1.010 (1.005-1.025) Urine Protein Negative (Neg-Trace) mg/dL Urine Glucose (UA) Negative (Negative) mg/dL Urine Ketones Negative (Negative) mg/dL Urine Blood Negative (Negative) Urine Nitrite Negative (Negative) Ur Leukocyte Esterase Negative (Negative) Influenza Type A (PCR) NEGATIVE (Negative) Influenza Type B (PCR) NEGATIVE (Negative) RSV RNA Qual (PCR) NEGATIVE (Negative) SARS-CoV-2 RNA (RT-PCR) NEGATIVE (Negative) 02/08/22 02/08/22 Range/Units 17:21 17:22 WBC (4.8-10.8) X10*3/uL RBC (4.60-5.80) X10*6/uL Hgb (14.0-18.0) g/dl Hct (42.0-52.0) % MCV (80.0-98.0) fL MCH (27.0-33.0) pg MCHC (31.0-36.0) g/dl RDW (11.0-16.0) % Plt Count (160-400) X10*3/uL MPV (9.4-12.4) fL Immature Gran % (Auto) (0.0-0.4) % Neut % (Auto) (45-73) % Lymph % (Auto) (20-40) % [place] % (Auto) (2-11) % Eos % (Auto) (0-4) % Baso % (Auto) (0-2) % Lymph # (Auto) (1.2-4.9) X10*3/uL [place] # (Auto) (0.1-1.2) X10*3/uL Eos # (Auto) (0.0-0.4) X10*3/uL Baso # (Auto) (0.0-0.2) X10*3/uL Abs Immat Gran (auto) (0.00-0.03) X10*3/uL Absolute Neuts (auto) (2.0-8.3) x10*3/uL Absolute Nucleated RBC (0.0-0.012) X10*3/uL Nucleated RBC % (auto) (0.0-0.2) /100WBC Sodium 136 (135-145) mmol/L Potassium 4.1 (3.3-5.1) mmol/L Chloride 95 L (96-108) mmol/L Carbon Dioxide 30 H (22-29) mmol/L Anion Gap 15 (12-20) BUN 21 H (9-16) mg/dL Creatinine 0.70 (0.5-1.4) mg/dL Estim Creat Clear Calc 134.3 Estimated GFR > 60 Random Glucose 105 (60-115) mg/dL Lactic Acid 1.2 (0.5-2.0) mmol/L Calcium 10.0 D (8.4-10.2) mg/dL Magnesium 1.1 L* (1.6-2.6) mg/dL Total Bilirubin 0.2 (0.0-1.0) mg/dL Direct Bilirubin < 0.2 (0.0-0.5) mg/dL AST 36 D (5-37) U/L ALT 99 H (0-40) U/L Alkaline Phosphatase 201 H D (39-117) U/L Total Protein 7.2 (6.5-8.0) g/dL Albumin 4.5 (3.5-5.0) g/dL Lipase 83 H (8-78) U/L Urine Color Urine Appearance Urine pH (5.0-9.0) Ur Specific [place] (1.005-1.025) Urine Protein (Neg-Trace) mg/dL Urine Glucose (UA) (Negative) mg/dL Urine Ketones (Negative) mg/dL Urine Blood (Negative) Urine Nitrite (Negative) Ur Leukocyte Esterase (Negative) Influenza Type A (PCR) (Negative) Influenza Type B (PCR) (Negative) RSV RNA Qual (PCR) (Negative) SARS-CoV-2 RNA (RT-PCR) (Negative) Imaging Data Chest x-ray: Attestation: I personally reviewed and interpreted this imaging study as follows: Radiologist's impression: EXAMINATION: XR CHEST CLINICAL INFORMATION: Altered mental status COMPARISON: CT chest 01/17/2022 TECHNIQUE: Frontal portable view of the chest was obtained. 4:10 PM FINDINGS: No significant abnormality is noted involving the heart, lungs, mediastinum, bony thorax or soft tissues. XR/XR chest 1V IMPRESSION: Unremarkable examination. ? ECG Data ECG #1: Attestation: I personally reviewed and interpreted this ECG as follows: ECG interpretation date: 02/08/22 ECG interpretation time: 17:33 Prior ECG tracings: available for review Interpretation: Vent. rate 79 BPM TX interval 152 ms QRS duration 92 ms QT/QTc 368/421 ms P-R-T axes 21 42 36 Normal sinus rhythm Normal ECG When compared with ECG of 17-JAN-2022 16:28, No significant change was found Discharge Plan Discharge Clinical Impression: Hypomagnesemia, Weakness Patient Disposition: Home, Self-Care Instructions: Weakness (ED), Hypomagnesemia (ED) Additional Instructions: You were evaluated for weakness. Her lab values indicated a low magnesium level. We repleted with 2 g of IV magnesium. Please continue to take your magnesium 400 mg twice a day as scheduled. Urinalysis is negative for acute findings. Thank you for choosing this emergency department for evaluation. Please follow-up with primary care physician as needed. Return to the emergency department for any new, concerning, or worsening symptoms. Prescriptions: No Action multivitamin Tablet 1 tab PO DAILY atorvastatin 10 mg tablet 1 tab PO DAILY minocycline 100 mg capsule 1 tab PO DAILY potassium chloride 10 mEq tablet extended release 1 tab PO DAILY oxcarbazepine 300 mg tablet 1 tab PO TID meloxicam 7.5 mg tablet 1 tab PO DAILY triamcinolone acetonide 0.1 % ointment 1 appl topical DAILY PRN (Reason: Skin Irritation) lisinopril 10 mg tablet 1 tab PO DAILY gabapentin 300 mg capsule 1 cap PO DAILY risperidone 0.5 mg tablet 1 tab PO BID escitalopram oxalate 20 mg tablet 1 tab PO DAILY magnesium oxide 400 mg (241.3 mg magnesium) Tablet 400 mg PO BIDPC Qty: 60 0RF nystatin 100,000 unit/gram Powder 1 appl topical BID 7 Days Qty: 30 1RF Protocol: Apply to: Apply to: groin azithromycin 500 mg Tablet 500 mg PO Q24H 5 Days Qty: 5 0RF cefuroxime axetil 500 mg tablet 500 mg PO BID Qty: 10 0RF
[2022-02-08 17:07] LABS: Appearance Urine Clear; Color Urine Yellow; Glucose Urine UA Negative (Negative); Leukocyte Esterase Urine Negative (Negative); Nitrite Urine Negative (Negative); PH 6.5 (5.0-9.0); Urine Blood Negative (Negative); Urine Ketones Negative (Negative); Urine Protein Negative (Neg-Trace)
[2022-02-08 17:33] LABS: MANUAL DIFF FLAG NO
[2022-02-08 17:35] LABS: Basophils Percent Auto 0.3 % (0-2); Eosinophils Absolute Auto 0.2 X10*3/uL (0.0-0.4); Eosinophils Percent Auto 2.5 % (0-4); Hematocrit 40.7 % (42.0-52.0); Hemoglobin 13.5 g/dl (14.0-18.0); Imm Gran Abs Auto 0.03 X10*3/uL (0.00-0.03); Imm Gran Pct Auto 0.3 % (0.0-0.4); Lymphocytes Absolute Auto 2.2 X10*3/uL (1.2-4.9); Lymphocytes Percent Auto 24.7 % (20-40); Mean Corpuscular HGB Conc 33.2 g/dl (31.0-36.0); Mean Corpuscular Hemoglobin 26.8 pg (27.0-33.0); Mean Corpuscular Volume 80.9 fL (80.0-98.0); Mean Platelet Volume 9.4 fL (9.4-12.4); Monocytes Absolute Auto 0.6 X10*3/uL (0.1-1.2); Monocytes Percent Auto 6.9 % (2-11); Neutrophils Absolute Auto 5.8 x10*3/uL (2.0-8.3); Neutrophils Percent Auto 65.3 % (45-73); Platelet Count 197 X10*3/uL (160-400); Red Blood Count 5.03 X10*6/uL (4.60-5.80); Red Cell Distribution Width 13.4 % (11.0-16.0); White Blood Count 8.9 X10*3/uL (4.8-10.8)
[2022-02-08 17:44] LABS: Influenza A PCR NEGATIVE (Negative); Influenza B PCR NEGATIVE (Negative); Resp Syncy Virus RNA Qual PCR NEGATIVE (Negative); SARS COV2 PCR INHOUSE NEGATIVE (Negative)
[2022-02-08 17:47] LABS: Lactic Acid 1.2 mmol/L (0.5-2.0)
[2022-02-08 17:55] LABS: Alanine Aminotransferase 99 U/L (0-40); Albumin Level 4.5 g/dL (3.5-5.0); Alkaline Phosphatase 201 U/L (39-117); Anion Gap 15 (12-20); Aspartate Amino Transferase 36 U/L (5-37); Bilirubin Direct < 0.2 mg/dL (0.0-0.5); Bilirubin Total 0.2 mg/dL (0.0-1.0); Blood Urea Nitrogen 21 mg/dL (9-16); Carbon Dioxide 30 mmol/L (22-29); Chloride 95 mmol/L (96-108); Creatinine Clr Calc Pharmacy 134.3; Estimated Glomerular Filt Rate > 60; Glucose Random 105 mg/dL (60-115); Lipase 83 U/L (8-78); Magnesium 1.1 mg/dL (1.6-2.6); Potassium 4.1 mmol/L (3.3-5.1); Sodium 136 mmol/L (135-145); Total Protein 7.2 g/dL (6.5-8.0)
--- NOTE | 2022-02-08 17:55 | PC.NURSE ---
Swallow screen completed and passed. Pt able to drink clear liquids with no coughing, chocking, or gurgly wet sounds. Incontinent care provided. Pull up removed. Pt able to urinate in urinal.
[2022-02-08 17:56] VITALS: BP 129/81; PULSE 70; RESP 14; TEMP 37.1; O2SAT 96
[2022-02-08] MEDS: Magnesium Sulfate/H2O 2 GM/50 ML PIGGYBACK IV (18:49)
--- NOTE | 2022-02-08 19:01 | PC.NURSE ---
Pt incontinent of urine. Unable to utilize urinal. Assistance provided. Complete bed change perform.
[2022-02-08] MEDS: 0.9 % Sodium Chloride 1,000 ML 999 ML IVCONT (19:04)
--- NOTE | 2022-02-08 20:24 | PC.NURSE ---
Incontinent care provided. Condom catheter in place.
[2022-02-08 20:26] VITALS: BP 131/85; PULSE 78; RESP 14; TEMP 36.8; O2SAT 98
--- NOTE | 2022-02-08 20:41 | PC.NURSE ---
Rn to RN report provided to Veda the nurse at [facility]. Pt to be discharged via EMS.
--- NOTE | 2022-02-08 21:10 | PC.NURSE ---
Remi called at 2039 for a Bls transfer back to [facility] per Laila GUEVARA. ETA within the hour.RN aware
== END 2022-02-08 22:12 | disposition home or self-care (01) ==
PROVIDERS: Nurse Practitioner Family; Emergency Provider Internal Medicine; PCP Internal Medicine
DX: E83.42 Hypomagnesemia (principal); R53.1 Weakness; Z20.822 Contact with and (suspected) exposure to COVID-19; G80.9 Cerebral palsy, unspecified; I10 Essential (primary) hypertension; E78.5 Hyperlipidemia, unspecified; Z79.02 Long term (current) use of antithrombotics/antiplatelets; Z79.899 Other long term (current) drug therapy
CPT/HCPCS: 0241U; 36415; 71045; 80048; 80076; 81003; 83605; 83690; 83735; 85025; 87040; 93005; 96361; 96365; 99285; J3475

== ENCOUNTER 2022-02-16 20:44 | Emergency (ER) | payer MEDICARE, MEDICAID, SELFPAY ==
--- NOTE | ~2022-02-16 | CT_ITS ---
EXAMINATION: CT ABDOMEN AND PELVIS WITHOUT CONTRAST CLINICAL INFORMATION: History of kidney stones. COMPARISON: Ultrasound abdomen 01/18/[address] abdomen pelvis 01/17/2022. TECHNIQUE: Multidetector volumetric imaging was performed from the superior aspect of the liver through the pubic symphysis. Sagittal and coronal reformatted images were obtained on the technologist's workstation. This CT examination was performed using dose optimization techniques as appropriate, variously including the following: *Automated exposure control *Adjustment of mA and/or kV according to patient size (this includes techniques or standardized protocols for targeted exams where dose is matched to indication/reason for exam; i.e. extremities or head) *Use of iterative reconstruction technique DLP: 834 mGy-cm FINDINGS: LUNG BASES: There is bibasilar scarring or atelectasis. The heart size is normal. LIVER, GALLBLADDER, AND BILIARY TREE: The liver is normal in size, shape, and attenuation. No focal hepatic lesion or biliary ductal dilatation is present. The gallbladder is unremarkable with no evidence of radiopaque gallstones, gallbladder wall thickening, or obvious pericholecystic inflammatory changes. PANCREAS: Unremarkable. SPLEEN: Unremarkable. ADRENAL GLANDS: Unremarkable. KIDNEYS AND URETERS: The kidneys are normal in size, shape, and attenuation. There is a punctate 2 mm calcification in the midpole right kidney and mid to lower pole left kidney. There are 2 mm radiopaque calculi in the lower pole calyx right kidney. No caliectasis or hydronephrosis seen.There is a large lower pole left parapelvic simple cyst measuring 4.3 cm. Small hyperdense cysts are seen in the mid to lower pole cortex right kidney and midpole peripelvic region and cortex left kidney. The largest hypodense cyst midpole pelvis measures 1.3 Hounsfield units and 68 Hounsfield units. There is no perinephric stranding. BLADDER: Unremarkable GASTROINTESTINAL TRACT: Scattered stool and gas is seen throughout the colon without distention. There are annular sutures in the sigmoid colon with patent lumen. The small bowel loops are normal caliber. Appendix is not visualized. No inflammatory process seen in the abdomen and pelvis. ABDOMINAL WALL: No significant hernia is appreciated. LYMPH NODES: Normal VASCULAR: Unremarkable PELVIC VISCERA: No free air or free fluid seen. The prostate gland is normal. There is significant enlargement of bilateral seminal vesicles. OSSEOUS STRUCTURES: No lytic or sclerotic process seen. Mild spondylosis ventral upper lumbar spine. CT/CT abdomen pelvis wo IV con IMPRESSION: 1. Bilateral nonobstructive radiopaque renal calculi. No caliectasis or hydronephrosis seen. 2. Bilateral simple and complex renal cysts. 3. Annular sutures in the sigmoid colon with patent lumen. Mild constipation. 4. Significant enlargement of bilateral seminal vesicles. Prostate is normal-sized. Fleischner guidelines were followed.
[2022-02-16 20:52] VITALS: BP 150/80; PULSE 90; O2SAT 96
--- NOTE | 2022-02-16 21:30 | PC.NURSE ---
patient changed over into hospital attire and belongings secured by security - patient resting comfortably on stretcher
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
[2022-02-16 21:53] VITALS: BP 148/77; PULSE 91; RESP 16; TEMP 36.6; O2SAT 97; BMI 25.1
[2022-02-16 22:44] LABS: Appearance Urine Clear; Color Urine Yellow; Glucose Urine UA Negative (Negative); Leukocyte Esterase Urine Negative (Negative); Nitrite Urine Negative (Negative); Urine Blood Negative (Negative); Urine Ketones Negative (Negative); Urine Protein Negative (Neg-Trace)
[2022-02-16 22:58] LABS: COVID-19 Test Negative (Negative); IDNOW Serial# 08D9AD1C
[2022-02-16 23:54] LABS: Amphetamine Screen Urine Not Detected (Not Detect); Barbiturates, Urine Not Detected (Not Detect); Benzodiazepines Screen Urine Not Detected (Not Detect); Cannabinoid Screen Urine Not Detected (Not Detect); Cocaine Screen Urine Not Detected (Not Detect); Fentanyl, urine Not Detected (Not Detect); Opiate Screen Urine Not Detected (Not Detect); Phencyclidine Screen Urine Not Detected (Not Detect)
[2022-02-17] VITALS (7 sets, daily range): BP systolic 119–154; BP diastolic 69–94; PULSE 73–89; RESP 11–18; TEMP 36.1–37.2; O2SAT 95–97
--- NOTE | 2022-02-17 00:31 | PC.NURSE ---
chrisn in room assessing patient now
--- NOTE | 2022-02-17 02:29 | PC.NURSE ---
ANGELICA reeval in AM. angelica clinician who assessed patient this shift unable to get in contact with [facility] staff
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
--- NOTE | 2022-02-17 08:45 | PC.NURSE ---
ROGERN re-evaluating at this time
--- NOTE | 2022-02-17 09:24 | PC.NURSE ---
patient wash and clean bed change .
--- NOTE | 2022-02-17 10:32 | PC.NURSE ---
Per BHN, pt a bedsearch at this time
--- NOTE | 2022-02-17 15:07 | PHA.MEDREC ---
Pharmacy Consult ? Medication Reconciliation Pharmacy has completed the medication reconciliation. Patient is developmentally delayed and comes from [facility]. Acquired medication list from [facility].
--- NOTE | 2022-02-17 18:08 | PC.NURSE ---
Pt continues to be in behavioral control. Conversing with patient observer. Remains bedsearch at this time, will continue to monitor.
[2022-02-17] MEDS: OXcarbazepine 300 MG TABLET 600 MG PO (22:42)
[2022-02-17] MEDS: LORazepam 1 MG TABLET PO (22:42)
[2022-02-17] MEDS: risperiDONE 0.5 MG TABLET PO (22:42)
[2022-02-17 22:49] LABS: Hematocrit 45.5 % (42.0-52.0); Hemoglobin 14.8 g/dl (14.0-18.0); Mean Corpuscular HGB Conc 32.5 g/dl (31.0-36.0); Mean Corpuscular Hemoglobin 27.5 pg (27.0-33.0); Mean Corpuscular Volume 84.6 fL (80.0-98.0); PLT CLUMP 1; Red Blood Count 5.38 X10*6/uL (4.60-5.80); Red Cell Distribution Width 13.9 % (11.0-16.0)
[2022-02-17 22:56] LABS: White Blood Count 6.2 X10*3/uL (4.8-10.8)
[2022-02-17 23:14] LABS: Band Neutrophils Percent 0 % (3-5); Eosinophils Absolute Manual 0.2 X10*3/uL (0.0-0.4); Eosinophils Percent Manual 3 % (0-4); Lymphocytes Absolute Manual 2.1 X10*3/uL (1.2-4.9); Lymphocytes Percent Manual 34 % (20-40); Monocytes Absolute Manual 1.2 X10*3/uL (0.1-1.2); Monocytes Percent Manual 19 % (2-11); Neutrophils Absolute Manual 2.7 X10*3/uL (2.0-8.3); Neutrophils Percent Manual 44 % (45-73); RBC Morphology NORMAL; Tear Drop Cells 1+ (0-2) /OIF
[2022-02-17 23:15] LABS: Alanine Aminotransferase 39 U/L (0-40); Albumin Level 4.4 g/dL (3.5-5.0); Alkaline Phosphatase 147 U/L (39-117); Anion Gap 21 (12-20); Aspartate Amino Transferase 33 U/L (5-37); Bilirubin Total < 0.2 mg/dL (0.0-1.0); Blood Urea Nitrogen 15 mg/dL (9-16); Calcium 9.4 mg/dL (8.4-10.2); Carbon Dioxide 22 mmol/L (22-29); Chloride 103 mmol/L (96-108); Creatinine Clr Calc Pharmacy 146.9; Estimated Glomerular Filt Rate > 60; Glucose Random 119 mg/dL (60-115); Potassium 5.1 mmol/L (3.3-5.1); Sodium 141 mmol/L (135-145); Total Protein 7.3 g/dL (6.5-8.0)
--- NOTE | 2022-02-17 23:53 | PC.NURSE ---
Patient's sneakers and leg braces removed from locker and placed on back of stretcher. Patient needs shoes to go into the bathroom. He walks with a walker and braces in place. Up to BR aprox 2044 large BM. Patient cleaned self with hygine wipes and gown changed. Home medications ordered by .
--- NOTE | 2022-02-18 05:53 | PC.NURSE ---
Patient did not fall asleep until aprox 1am when he was moved into an exam room for quiet and dim lights. Patient will yell out and at other staff members and patients coming/going in or out of rooms. Difficult to redirect d/t patient does not remember being asked to not yell out at people. Patient has sitter within view for safety. Using urinal independently.
[2022-02-18] MEDS: Atorvastatin Calcium 10 MG TABLET PO (07:49)
[2022-02-18] MEDS: Omeprazole 20 MG CAPSULE.DR PO (07:49)
[2022-02-18] MEDS: OXcarbazepine 300 MG TABLET PO (07:49)
[2022-02-18] MEDS: risperiDONE 0.5 MG TABLET PO (07:50)
[2022-02-18] MEDS: Multivitamin TABLET 1 TAB PO (07:50)
[2022-02-18] MEDS: Escitalopram Oxalate 20 MG TABLET PO (07:50)
[2022-02-18] MEDS: Gabapentin 300 MG CAPSULE PO (07:50)
[2022-02-18 09:18] VITALS: BP 134/83; PULSE 86; RESP 20; TEMP 36.1; O2SAT 96
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
--- NOTE | 2022-02-18 13:21 | PC.NURSE ---
proram director bernie [phone] would like a call w transfer
--- NOTE | 2022-02-18 15:16 | PC.NURSE ---
Brief meeting had with pt this date secondary to pts degree of lethargy. Pt has difficulty maintaining wakeful state necessary to engage in OT tx. Pt is receptive to sensory item provided and promptly falls back asleep.
[2022-02-18 18:33] LABS: Appearance Urine Clear; Color Urine Yellow; Glucose Urine UA Negative (Negative); Leukocyte Esterase Urine Negative (Negative); Nitrite Urine Negative (Negative); Specific Gravity - Urine 1.015 (1.005-1.025); Urine Blood Negative (Negative); Urine Ketones Negative (Negative); Urine Protein Negative (Neg-Trace)
--- NOTE | 2022-02-18 20:05 | PC.NURSE ---
spoke w ANGELICA manager of case management, requested urine get cultured despite neg dipstick. pt has had positive urine cultures w neg dipsticks in the past w similar behaviors.
[2022-02-18 21:00] VITALS: BP 119/75; PULSE 80; RESP 18; TEMP 36.7; O2SAT 97
--- NOTE | 2022-02-18 21:49 | PC.NURSE ---
attempted to medicate pt w pm meds, pt opened eyes to verbal stimuli and closed them again, pt left to sleep, 1:1 at bedside.
--- NOTE | 2022-02-18 21:58 | PC.NURSE ---
pt ate 100 % of dinner ,drank 480 ml fluids ,sitter at bedside .
--- NOTE | 2022-02-18 23:55 | PC.NURSE ---
0000 rounding done pt asleep sitter at bedside ,
--- NOTE | 2022-02-19 00:55 | PC.NURSE ---
pt was assisted to use the urinal ,sitter at bedside .
--- NOTE | 2022-02-19 01:08 | PC.NURSE ---
pt was inc of urine ,care given linen change ,warm blanket and fresh water given .
--- NOTE | 2022-02-19 01:19 | PC.NURSE ---
pt now requesting pm meds, unable to pull medication from [facility], pharmacy contacted.
[2022-02-19] MEDS: OXcarbazepine 300 MG TABLET 600 MG PO (02:02)
[2022-02-19] MEDS: LORazepam 1 MG TABLET PO (02:02)
[2022-02-19] MEDS: risperiDONE 0.5 MG TABLET PO ×2 (02:02→08:54)
--- NOTE | 2022-02-19 02:09 | PC.NURSE ---
0200 rounding done ,pt asleep ,sitter at bedside .
--- NOTE | 2022-02-19 04:14 | PC.NURSE ---
0400 ROUNDING DONE ,PT DRY ,AND SLEEPING ,SITTER AT BEDSIDE .
--- NOTE | 2022-02-19 06:07 | PC.NURSE ---
PT ASLEEP AND IS DRY ,SITTER AT BEDSIDE .
[2022-02-19] MEDS: OXcarbazepine 300 MG TABLET PO (06:56)
[2022-02-19] MEDS: Omeprazole 20 MG CAPSULE.DR PO (06:56)
[2022-02-19 07:29] VITALS: BP 135/85; PULSE 84; RESP 13; TEMP 36.5; O2SAT 94
[2022-02-19] MEDS: Gabapentin 300 MG CAPSULE PO (08:54)
[2022-02-19] MEDS: Escitalopram Oxalate 20 MG TABLET PO (08:54)
[2022-02-19] MEDS: Multivitamin TABLET 1 TAB PO (08:54)
[2022-02-19] MEDS: Atorvastatin Calcium 10 MG TABLET PO (08:54)
--- NOTE | 2022-02-19 10:05 | PC.NURSE ---
mom called- updated on plan of care. care team reports [facility] will re eval patient today.
[2022-02-19 10:14] VITALS: BP 124/77; PULSE 78; RESP 13; TEMP 36.8; O2SAT 98
--- NOTE | 2022-02-19 11:35 | PC.NURSE ---
pt mom called. given [facility] phone number. concerns about location where pt may be sent.
--- NOTE | 2022-02-19 13:49 | PC.NURSE ---
Pt resting on stretcher at this time. 1:[address].
--- NOTE | 2022-02-19 14:45 | PC.NURSE ---
Pt seen this date for individual OT tx. Pt presents with cheerful affect and is receptive and engages in sensory item activity. Pt with apparent aphasia and answers the majority of questions asked by this health underwriter with I want to go to rehab or I want to go to [facility] . Therapeutic use of self utilized for tx with good perceived effect as noted by pts cheerful demeanor/mood laughing and smiling during visit.
[2022-02-19] MEDS: OLANZapine 10 MG VIAL 5 MG IM (15:08)
[2022-02-19] MEDS: diphenhydrAMINE HCL 50 MG/ML VIAL IM (15:08)
--- NOTE | 2022-02-19 15:08 | PC.NURSE ---
Pt beginning to escalate, attempted to get out of bed, yelling at staff. ISMAEL Chen aware, medications ordered and administered per MAR
--- NOTE | 2022-02-19 18:36 | PC.NURSE ---
Pt resting comfortably in bed at this time eating dinner. Mother is at bedside asking for update. This RN explained that the pt is still in for a bedsearch and [facility] is the group handling this pt.
--- NOTE | 2022-02-19 21:01 | PC.NURSE ---
Spoke with tool programmer who reported staff will have a conversation with pt's mother about bed placement at [facility] in [place]. They will call back after the conversation with the mother tomorrow morning
--- NOTE | 2022-02-19 21:05 | PC.NURSE ---
Pt refused 2100 medications. Stated no several times and refused to wake up enough to take medication.
[2022-02-19 21:22] VITALS: BP 126/80; PULSE 72; RESP 16; TEMP 36.8; O2SAT 98
--- NOTE | 2022-02-19 21:23 | PC.NURSE ---
pt ate 100 % of supper ,drank 480 ml fluids ,pt was inc of urine ,bedding change bed bath given warm blanket given ,sitter at bedside .
--- NOTE | 2022-02-19 23:55 | PC.NURSE ---
0000 ,rounding done pt is a wake ,pt was assisted to use the urinal ,and wrm blanket ,offer pt a snack but pt refused ,sitter at bedside
--- NOTE | 2022-02-20 02:26 | PC.NURSE ---
0200 rounding done pt void 225 ml urine ,sitter at bedside .
[2022-02-20] MEDS: OXcarbazepine 300 MG TABLET PO (06:50)
[2022-02-20] MEDS: Omeprazole 20 MG CAPSULE.DR PO (06:51)
[2022-02-20] MEDS: risperiDONE 0.5 MG TABLET PO ×2 (08:21→21:40)
[2022-02-20] MEDS: Escitalopram Oxalate 20 MG TABLET PO (08:21)
[2022-02-20] MEDS: Multivitamin TABLET 1 TAB PO (08:21)
[2022-02-20] MEDS: Gabapentin 300 MG CAPSULE PO (08:21)
[2022-02-20] MEDS: Atorvastatin Calcium 10 MG TABLET PO (08:21)
[2022-02-20 09:03] VITALS: BP 145/91; PULSE 76; RESP 16; TEMP 36.7; O2SAT 93
--- NOTE | 2022-02-20 09:05 | PC.NURSE ---
Addendum entered by Maria Del Carmen Abraham 02/20/22 09:09: Will follow up with case management. Original Note: This documentation writer spoke to PT mother. She is worried about him going 2 hours away. Would like her niece Tamela Adams ([phone]) involved
--- NOTE | 2022-02-20 12:51 | MHC.CARE ---
CARE Team speaks with Barbara from [facility]
[2022-02-20] MEDS: risperiDONE 1 MG TABLET PO (14:17)
[2022-02-20 21:00] VITALS: BP 120/77; PULSE 100; RESP 14; TEMP 36.9; O2SAT 96
[2022-02-20] MEDS: OXcarbazepine 300 MG TABLET 600 MG PO (21:40)
[2022-02-21] MEDS: Omeprazole 20 MG CAPSULE.DR PO (06:45)
[2022-02-21] MEDS: OXcarbazepine 300 MG TABLET PO (06:45)
[2022-02-21 06:47] VITALS: BP 122/89; PULSE 89; RESP 16; TEMP 36.8; O2SAT 96
[2022-02-21] MEDS: Gabapentin 300 MG CAPSULE PO (10:22)
[2022-02-21] MEDS: Multivitamin TABLET 1 TAB PO (10:22)
[2022-02-21] MEDS: risperiDONE 0.5 MG TABLET PO ×2 (10:22→20:38)
[2022-02-21] MEDS: Escitalopram Oxalate 20 MG TABLET PO (10:22)
[2022-02-21] MEDS: Atorvastatin Calcium 10 MG TABLET PO (10:23)
[2022-02-21 18:43] VITALS: BP 141/96; PULSE 93; RESP 14; TEMP 36.6; O2SAT 96
[2022-02-21] MEDS: OXcarbazepine 300 MG TABLET 600 MG PO (20:38)
[2022-02-21 20:41] VITALS: BP 118/78; PULSE 82; RESP 17; O2SAT 97
--- NOTE | 2022-02-21 21:22 | PC.NURSE ---
Care of patient assumed at 1900. He is found resting in stretcher calmly on his right side. 1:[address] Patient is alert, smiling and interactive with this RN. He sits up to take PO PM pills without difficulty. He asks this RN, am I going to here and emotional support is provided. Patient provided with additional warm blankets for comfort and water to sip on. He has a urinal bedside and uses it independently. He has no needs or concerns at this time. Safety maintained.
--- NOTE | 2022-02-22 02:28 | PC.NURSE ---
Patient incontinent of urine in his bed. All bed linens changed, patient able to provide belinda care for himself with wipes. Patient boosted and repositioned in stretcher.
[2022-02-22] MEDS: OXcarbazepine 300 MG TABLET PO (06:11)
[2022-02-22] MEDS: Omeprazole 20 MG CAPSULE.DR PO (06:11)
[2022-02-22 06:13] VITALS: BP 129/76; PULSE 80; RESP 17; O2SAT 96
[2022-02-22 09:27] VITALS: BP 133/96; PULSE 108; RESP 14; O2SAT 94
[2022-02-22] MEDS: Multivitamin TABLET 1 TAB PO (09:28)
[2022-02-22] MEDS: risperiDONE 0.5 MG TABLET PO ×2 (09:28→23:18)
[2022-02-22] MEDS: Gabapentin 300 MG CAPSULE PO (09:28)
[2022-02-22] MEDS: Atorvastatin Calcium 10 MG TABLET PO (09:28)
[2022-02-22] MEDS: Escitalopram Oxalate 20 MG TABLET PO (09:28)
[2022-02-22 10:49] VITALS: BP 151/89; PULSE 77; RESP 14; TEMP 36.5; O2SAT 96
[2022-02-22 21:00] VITALS: BP 142/87; PULSE 78; RESP 16; TEMP 36.6; O2SAT 97
[2022-02-22] MEDS: OXcarbazepine 300 MG TABLET 600 MG PO (23:19)
[2022-02-23] MEDS: OXcarbazepine 300 MG TABLET PO (07:22)
[2022-02-23] MEDS: Omeprazole 20 MG CAPSULE.DR PO (07:22)
[2022-02-23] MEDS: Gabapentin 300 MG CAPSULE PO (09:30)
[2022-02-23] MEDS: Escitalopram Oxalate 20 MG TABLET PO (09:30)
[2022-02-23] MEDS: Atorvastatin Calcium 10 MG TABLET PO (09:30)
[2022-02-23] MEDS: Multivitamin TABLET 1 TAB PO (09:30)
[2022-02-23] MEDS: risperiDONE 0.5 MG TABLET PO ×2 (09:30→21:33)
[2022-02-23] MEDS: Triamcinolone Acet 0.1 % Oint 15 GM TUBE 1 APPL TOPICAL ×2 (10:47→23:48)
[2022-02-23] MEDS: Fluticasone Propionate Nasal 16 GM SPRAY 1 SPRAY NOSTRIL-B (10:47)
--- NOTE | 2022-02-23 12:45 | PC.NURSE ---
pt's mom called for update. I called [facility] and was told the pt will have another evaluation later today. No placement at this time.
--- NOTE | 2022-02-23 14:29 | PC.NURSE ---
Pt seen this date for individual OT tx. Pt found to be seated OOB in recliner chair and had eaten 100% of his lunch. Pt repositioned to for comfort and decreased risk of decubitus/pressure points. Once pt is repositioned pt provided with sensory items to engage in. Pt presents bright, alert, and cheerful however continues to persevere with regard to discharge plans, pt is easily redirected/reassured.
[2022-02-23 17:17] VITALS: BP 121/84; PULSE 82; RESP 18; TEMP 36.8; O2SAT 97
--- NOTE | 2022-02-23 18:52 | PC.NURSE ---
Spoke with NAY Westfall and updated on plan thus far. Pt awaiting re eval from [facility]
[2022-02-23 21:00] VITALS: BP 132/85; PULSE 75; RESP 16; TEMP 36.6; O2SAT 96
[2022-02-23] MEDS: OXcarbazepine 300 MG TABLET 600 MG PO (21:33)
[2022-02-24 06:00] VITALS: BP 127/95; PULSE 100; RESP 16; TEMP 36.7; O2SAT 96
[2022-02-24] MEDS: Omeprazole 20 MG CAPSULE.DR PO (06:25)
[2022-02-24] MEDS: OXcarbazepine 300 MG TABLET PO (06:25)
--- NOTE | 2022-02-24 06:30 | PC.NURSE ---
pt slept all night i woke pt up at 0630 to get vs ,pt use urinal at that time pt is dry and awake .
--- NOTE | 2022-02-24 06:44 | PC.NURSE ---
patient had an xx large form bowel movement at 0640 ,patient was clean and bed pad change .
[2022-02-24] MEDS: risperiDONE 0.5 MG TABLET PO ×2 (07:13→21:05)
[2022-02-24] MEDS: Gabapentin 300 MG CAPSULE PO (07:13)
[2022-02-24] MEDS: Atorvastatin Calcium 10 MG TABLET PO (07:13)
[2022-02-24] MEDS: Escitalopram Oxalate 20 MG TABLET PO (07:13)
[2022-02-24] MEDS: Multivitamin TABLET 1 TAB PO (07:13)
[2022-02-24] MEDS: Triamcinolone Acet 0.1 % Oint 15 GM TUBE 1 APPL TOPICAL ×2 (07:15→21:06)
[2022-02-24] MEDS: Fluticasone Propionate Nasal 16 GM SPRAY 1 SPRAY NOSTRIL-B (07:15)
[2022-02-24 07:39] VITALS: BP 146/95; PULSE 85; RESP 16; TEMP 36.6; O2SAT 95
[2022-02-24 11:25] VITALS: BP 133/85; PULSE 72; RESP 14; TEMP 36.4; O2SAT 97
[2022-02-24 13:10] VITALS: BP 133/85; PULSE 72; O2SAT 97
--- NOTE | 2022-02-24 13:59 | PC.NURSE ---
Pt seen this date for individual OT tx. Pt found to be seated upright OOB in recliner chair and positioned at 90 degrees in preparation for PO intake of lunch time meal. Pt requires assistance for opening of juice containers, milk container, condiments, as well as initial moderate verbal cuing to engage in self feeding task. Pt is able to self feed with use of standard equipment following set up at supervision level on this date. Per pts attending OTR message conveyed to care team with regard to need for PT consult for assessment of pts current level of function for functional mobility status and AD management for safest discharge back to decided home environment. Per pts family PLOF was ambulating with 2ww within a supervised environment. Pts grandmother present for entirety of OT session.
--- NOTE | 2022-02-24 14:00 | P.CNPS_ITS ---
History of Present Illness Date of Service: 02/23/2022 Chief Complaint: section 12 Reason for Consult: increase aggression Discussed with referring provider: Yes Sources of Information: patient interviewed, chart reviewed and crisis/core team assessment reviewed HPI Narrative: Mr. Hawkins is a 42 year-old male with hx of cerebral palsy. Pt lives in a and was brought to [facility] due to increase verbal aggression, inappropriate boundaries with female peer. Collateral information gathered from his mother who reports that pt used to work at [employer] and was asked to leave as he threw himself on the floor and made verbal threats to peers. Mother reports during that same time pt later ended up in hospital with UTI, kidney stones and pneumonia, so she wonders if underlying medical condition was cause of his behavioral outbursts. Most recently, mother reports she has been told that he can be loud at times, yelling demanding but other than throwing his walker his mobility is limited and he has not gone after anyone. Here on the ED, pt has been in bed, not ambulating and concern about his ability to do so, pending PT eval. Pt not oriented to situation and tells this group underwriter that he is here due to kidney stones, which is not the case. He denies any pain at the moment and does not appear to be in any physical distress. He denies SI/HI but unclear how much he comprehends when the question is asked. He has been here for for past 3 days. He has had mild episodes of yelling asking for help from nurses but no inappropriate behaviors. He did receive one time olanzapine 5mg IM when increasingly more agitated and roommate having life threatening condition. Other than that there has not been any behavioral outburst here in the ED. 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 Reportedly, Patient was once discharged from another [facility] for aggressive behaviors PMFSH Medical History Cerebral palsy Hypertension Intellectual disability Kidney cysts Family History: deferred Social History: lives in skilled nursing mother is guardian Trauma History: deferred Diagnostics Vital Signs (24Hr): Vital Signs - 24 hr 02/23/22 17:17 02/23/22 21:00 02/24/22 06:00 Temperature 98.2 F 97.8 F 98.0 F Pulse Rate 82 75 100 Respiratory Rate 18 16 16 Blood Pressure 121/84 132/85 127/95 H Pulse Oximetry 97 96 96 Oxygen Delivery Method Room Air Room Air Room Air 02/24/22 07:39 02/24/22 11:25 02/24/22 13:10 Temperature 97.8 F 97.6 F Pulse Rate 85 72 72 Respiratory Rate 16 14 Blood Pressure 146/95 H 133/85 133/85 Pulse Oximetry 95 97 97 Oxygen Delivery Method Room Air Room Air BMI result Body Mass Index 25.1 Labs Results: 02/17/22 22:40 02/17/22 22:40 Mental Status Exam Mental Status Exam Narrative: Appearance: wearing hospital gown, in NAD Behavior: friendly Psychomotor: no agitation or retardation noted Speech: stutter, difficult to understand at times, spontaneous TP: disorganized, some loose association TC: wanting to go back to , or to another hospital (for unclear reasons but mother says he likes hospitals) SI: none HI: none VH/AH: none Delusions: none Insight/judgment: impaired. Medications Medications Current Medications Atorvastatin Calcium (Atorvastatin Calcium 10 Mg Tablet) 10 mg PO DAILY [facility] Last Admin: 02/24/22 07:13 Dose: 10 mg Escitalopram Oxalate (Escitalopram Oxalate 20 Mg Tablet) 20 mg PO DAILY [facility] Last Admin: 02/24/22 07:13 Dose: 20 mg Fluticasone Propionate (Fluticasone Propionate Nasal 16 Gm [place]) 1 spray NOSTRIL-B DAILY [facility] Last Admin: 02/24/22 07:15 Dose: 1 spray Gabapentin (Gabapentin 300 Mg Capsule) 300 mg PO DAILY [facility] Last Admin: 02/24/22 07:13 Dose: 300 mg Multivitamins/Vitamin C (Multivitamin Tablet) 1 tab PO DAILY [facility] Last Admin: 02/24/22 07:13 Dose: 1 tab Omeprazole (Omeprazole 20 Mg Capsule.Dr) 20 mg PO DAILY@0630 [facility] Last Admin: 02/24/22 06:25 Dose: 20 mg Oxcarbazepine (Oxcarbazepine 300 Mg Tablet) 300 mg PO DAILY@0630 [facility] Last Admin: 02/24/22 06:25 Dose: 300 mg Oxcarbazepine (Oxcarbazepine 300 Mg Tablet) 600 mg PO BEDTIME [facility] Last Admin: 02/23/22 21:33 Dose: 600 mg Pharmacy Consult (Consult Rx Perform Med Rec) 1 each MISCELLANE ONCE PRN PRN Reason: Consult order Risperidone (Risperidone 0.5 Mg Tablet) 0.5 mg PO BID [facility] Last Admin: 02/24/22 07:13 Dose: 0.5 mg Triamcinolone Acetonide (Triamcinolone Acet 0.1 % Oint 15 Gm Tube) 1 appl TOPICAL BID [facility] Last Admin: 02/24/22 07:15 Dose: 1 appl Allergies Allergies Allergy/AdvReac Type Severity Reaction Status Date / Time No Known Allergies Allergy Verified 01/17/22 16:08 Assessment & Plan Assessment & Plan (1) Cerebral palsy: Status: Acute Code(s): G80.9 - Cerebral palsy, unspecified (2) Intellectual disability: Status: Acute Code(s): F79 - Unspecified intellectual disabilities Plan Mr. Hawkins is a 42 year-old male with hx of intellectual disability and cerebral palsy who resides at and was brought to [facility] ED due to increase verbal aggression and innapropriate behavior towards female peers. Pt sees Dr. Cesar in [place]. Per mother verbal aggression increase in past few weeks, however, pt has not been physically aggressive towards anyone. Pt would benefit from medication changes but given that there is no imminent safety concerns in terms of harm to self or others given his limited mobility, he would benefit from medication changes outpatient. Mother does express concern about pt's outpatient psychiatrist as she reports feeling that he is not very responsive to his pt's needs. Discussed with mother to address this with psychiatrist directly or to switch to [facility]. PLAN 1. Pt to follow up with OP provider for further medication changes to address increase impulsivity/verbal aggression/agitation 2. Pending PT eval as pt unable to ambulate. I spent minutes with the patient and/or on the patient floor today, greater than?50% of which was spent counseling/coordinating care.
--- NOTE | 2022-02-24 18:39 | MHC.CM.ED ---
Addendum entered by Jina Diaz 02/24/22 19:06: Guardianship and MOLST on file. Original Note: Gemma forensic psychiatrist recommending outpatient medication management. PT recommends trial STR. Pt is no longer an inpatient psych bed search. Pt calm and cooperative. No yelling or outbursts. Pt has cerebral palsy and ID. Was living with parents until about 1 years ago, when patient moved to a halfway. Pt has had admissions to hospital and STR. Pt lives at [facility] halfway. [facility] ([phone]). Pt has a guardian/mother Any Hawkins ([phone]). Per Brii, halfway goal is for patient to return with improved behaviors and medication management. CM spoke with her. Explained that no behaviors in ED, calm and cooperative and psych is not recommending medication changes at this time, and thinks medications can be managed as an outpatient. Pt is no longer an inpatient bed search. Brii tells CM that they do have a Jeromy's Order at the facility. Pt is deconditioned and at baseline, uses walker and braces on legs. PT recommends STR. CM spoke with mother Any, who is concerned about his weakness and his outbursts at the halfway. Any feels the halfway should be able to manage his behaviors, as he is intellectually disabled and has C.P. Pt has an O.P Psychiatrist who manages his medications. Any feels there must be a medical reason why he is acting out. CM mentioned to mother that patient has been through many living changes in the past year and some of this also may be impacting his behaviors. Any is agreeable to STR and would like referrals locally. Requests patient not be referred to [facility], as she feels he did not get adequate PT while there. CM met with Brian. Pleasant and cooperative. Asks when he will go to another place. Wants rehab. Explained that referrals will be made to find a place for rehab. Asked when he will go. Asked if ambulance will come soon. Again, explained that ambulance will come when he has a place to go. Will stay overnight. Pt was very pleasant and answered all questions, but CM questions his understanding. CM spoke with Micaela Psych nurse practitioner She will follow patient daily while in ED. States she will make med changes if needed. Agrees with STR and feels that any psych needs can be addressed as an out patient. Referrals made locally. CM will follow for d/c needs.
[2022-02-24] MEDS: OXcarbazepine 300 MG TABLET 600 MG PO (21:06)
--- NOTE | 2022-02-24 23:39 | PC.NURSE ---
Pt resting on stretcher at this time. This RN and IRAJ Cohen moved pt from chair to bed at about 2245 so pt could go to sleep. Pt cooperative and calm this evening. 1:[address]
[2022-02-24 23:57] VITALS: BP 115/75; PULSE 88; RESP 17; TEMP 36.8; O2SAT 98
[2022-02-25 00:20] LABS: Alanine Aminotransferase 109 U/L (0-40); Albumin Level 4.1 g/dL (3.5-5.0); Alkaline Phosphatase 307 U/L (39-117); Anion Gap 14 (12-20); Aspartate Amino Transferase 45 U/L (5-37); Bilirubin Total < 0.2 mg/dL (0.0-1.0); Blood Urea Nitrogen 18 mg/dL (9-16); Calcium 9.4 mg/dL (8.4-10.2); Carbon Dioxide 34 mmol/L (22-29); Chloride 98 mmol/L (96-108); Creatinine Clr Calc Pharmacy 142.5; Estimated Glomerular Filt Rate > 60; Glucose Random 147 mg/dL (60-115); Potassium 3.4 mmol/L (3.3-5.1); Sodium 143 mmol/L (135-145); Total Protein 6.5 g/dL (6.5-8.0)
[2022-02-25] MEDS: Magnesium Oxide 400 MG TABLET 800 MG PO (00:29)
--- NOTE | 2022-02-25 04:02 | PC.NURSE ---
this rn observed pt sleeping quietly at this time. seating captain in place at pt bedside
[2022-02-25] MEDS: OXcarbazepine 300 MG TABLET PO (06:20)
[2022-02-25] MEDS: Omeprazole 20 MG CAPSULE.DR PO (06:20)
--- NOTE | 2022-02-25 06:27 | PC.NURSE ---
pt sleeping comfortably. pt awakes to nurse. pt sat up in bed. pt medicated according to MAR. This RN and tech boosted patient up in bed and repositioned patient on back. pt states no new requests at this time
[2022-02-25] MEDS: Escitalopram Oxalate 20 MG TABLET PO (08:54)
[2022-02-25] MEDS: Fluticasone Propionate Nasal 16 GM SPRAY 1 SPRAY NOSTRIL-B (08:55)
[2022-02-25] MEDS: Gabapentin 300 MG CAPSULE PO (08:55)
[2022-02-25] MEDS: risperiDONE 0.5 MG TABLET PO ×2 (08:55→20:12)
[2022-02-25] MEDS: Atorvastatin Calcium 10 MG TABLET PO (08:55)
[2022-02-25] MEDS: Triamcinolone Acet 0.1 % Oint 15 GM TUBE 1 APPL TOPICAL ×2 (08:55→20:55)
[2022-02-25] MEDS: Multivitamin TABLET 1 TAB PO (08:55)
[2022-02-25] MEDS: Magnesium Oxide 400 MG TABLET PO ×2 (08:55→20:12)
[2022-02-25 08:57] VITALS: BP 132/69; PULSE 82; RESP 16; O2SAT 97
--- NOTE | 2022-02-25 13:55 | MHC.CM.ED ---
Patient remains in ER. No bed offers made at this time. Patient is active with [facility] for physical therapy and occupational therappy at his half-way. Received telephone call from patient's mother/guardian, Any. Explained no placement has been found yet. Any upset about this, but states she doesn't want patient to return to [facility]. Received telephone call from patient's cousin, Tamela. Tamela can be reached via telephone at [phone]. Tamela is a social services for [facility] in [place]. Any has allowed Tamela to speak with case management. Tamela would like patient to return to his half-way with behavioral health services added to his care in addition to physical and occupational therapy. T/W spoke with Khadra at [facility]. Their behavioral health services will only help with medication management. long term already manages patient's medication. They could add a social services, but Khadra feels this wouldn't help patient. Tamela is requesting referral to [facility] for palliative care. Referral made via [facility]. [facility] is verifying insurance and will get back to . Angelica aware will contact her when we have verification from [facility] if they will accept patient. Tamela will speak to Jessica at half-way. Continue to monitor for d/c needs.
--- NOTE | 2022-02-25 15:10 | PC.NURSE ---
Pt seen this date for individual OT tx. Pt continues to present with bright cheerful affect and receptive to treatment . Pt provided with various sensory activities involving visual, auditory, and tactile senses facilitated through beading activity as well as calming sensory items. This song writer to follow up with regard to outcome of PT evaluation.
[2022-02-25 16:02] VITALS: BP 142/77; PULSE 95; RESP 16; TEMP 36.7; O2SAT 96
[2022-02-25] MEDS: OXcarbazepine 300 MG TABLET 600 MG PO (20:12)
[2022-02-25 21:00] VITALS: BP 119/76; PULSE 86; RESP 16; TEMP 37; O2SAT 90
[2022-02-26] MEDS: OXcarbazepine 300 MG TABLET PO (05:57)
[2022-02-26] MEDS: Omeprazole 20 MG CAPSULE.DR PO (05:57)
[2022-02-26] MEDS: Escitalopram Oxalate 20 MG TABLET PO (08:23)
[2022-02-26] MEDS: Gabapentin 300 MG CAPSULE PO (08:23)
[2022-02-26] MEDS: Multivitamin TABLET 1 TAB PO (08:23)
[2022-02-26] MEDS: Atorvastatin Calcium 10 MG TABLET PO (08:24)
[2022-02-26] MEDS: risperiDONE 0.5 MG TABLET PO ×2 (08:24→20:46)
[2022-02-26] MEDS: Magnesium Oxide 400 MG TABLET PO ×2 (08:24→20:46)
[2022-02-26 08:27] VITALS: BP 126/78; PULSE 75; RESP 16; TEMP 36.9; O2SAT 96
--- NOTE | 2022-02-26 08:46 | PC.NURSE ---
Pt was given a spongebath after being assisted to the commode. Pt only urinated.
--- NOTE | 2022-02-26 09:25 | PC.NURSE ---
pt awake on first contact, no offered complaints. sitting up at bedside. using bedside commode w standy by assist. able to make most needs known. previous shift rn having concerns for pt behaviors regarding belinda care, sts pt may be willingly incontinent for attention . pt appears to be at baseline behaviors per notes, no concerning behaviors with this shift rn thus far. took po meds without issues and tolerating po.
--- NOTE | 2022-02-26 10:08 | PC.NURSE ---
pt able to make needs known, using urinal in bedside recliner. mother called for update and spoke w pt on phone. sts she will be visiting today. pt asking about having pt shaved. this rn discussing safety barriers to shaving effectively while in ed. advised to bring in a safety shaver from home if available.
--- NOTE | 2022-02-26 13:26 | MHC.CM.ED ---
Patient remains in ER. [facility] is not able to accept patient. [facility] referral broadcasted in [facility] to see if any agencies are able to help with behavorial health services. Spoke with Tamela via telephone at [phone]. Tamela states patient having behaviors. T/W inquired about what behaviors. Tamela stated patient was urinating himself and asking the female staff to wash him up. These concerns were relayed to Christin, flasher adjuster. Christin does not feel this still requires patient to be placed in psych unit. Christin will speak with patient's mother, Any, or Tamela. Continue to monitor for d/c needs.
--- NOTE | 2022-02-26 15:17 | PC.NURSE ---
Pt seen this date for individual OT tx. Pt found to be visiting with his mother upon approach. Pt engaged in sensory activities incorporating visual, tactile, gustatory, and visual senses with fair medical receptionist as noted my notable depressed affect. Per PT notes pt was seen this past Wednesday for initial evaluation. Unclear at this time with regard for plans to continue or not continue with PT services wile awaiting placement. This ASSEMBLER GARMENT FORM/L to follow up this coming week.
[2022-02-26] MEDS: Triamcinolone Acet 0.1 % Oint 15 GM TUBE 1 APPL TOPICAL (20:46)
[2022-02-26] MEDS: OXcarbazepine 300 MG TABLET 600 MG PO (20:46)
--- NOTE | 2022-02-27 03:53 | PC.NURSE ---
Pt sleeping in no apparent distress. Breaths are even and unlabored with equal chest rises. 1:1 sitter at bedside. Will continue to monitor.
[2022-02-27 06:00] VITALS: BP 122/80; PULSE 76; RESP 12; TEMP 36.7; O2SAT 97
[2022-02-27] MEDS: Omeprazole 20 MG CAPSULE.DR PO (06:01)
[2022-02-27] MEDS: OXcarbazepine 300 MG TABLET PO (06:01)
[2022-02-27] MEDS: risperiDONE 0.5 MG TABLET PO ×2 (08:48→21:55)
[2022-02-27] MEDS: Gabapentin 300 MG CAPSULE PO (08:48)
[2022-02-27] MEDS: Escitalopram Oxalate 20 MG TABLET PO (08:48)
[2022-02-27] MEDS: Magnesium Oxide 400 MG TABLET PO ×2 (08:48→21:56)
[2022-02-27] MEDS: Multivitamin TABLET 1 TAB PO (08:49)
[2022-02-27] MEDS: Atorvastatin Calcium 10 MG TABLET PO (08:49)
[2022-02-27 10:30] VITALS: BP 122/80; PULSE 76; O2SAT 97
[2022-02-27] MEDS: Fluticasone Propionate Nasal 16 GM SPRAY 1 SPRAY NOSTRIL-B (11:22)
[2022-02-27] MEDS: Triamcinolone Acet 0.1 % Oint 15 GM TUBE 1 APPL TOPICAL ×2 (11:22→21:56)
--- NOTE | 2022-02-27 14:34 | MHC.CM.ED ---
Addendum entered by Andie Durant 02/27/22 15:26: Referral expanded to 100 miles. 306 referrals made. Original Note: Patient remains in ER. Spoke with Tamela via telephone at [phone]. Shagufta and Any are requesting patient return to his [facility] with [facility] SMITH for PT and OT. T/W spoke with Morgan of [facility] via telephone at [phone]. Jessica needs to speak to her boss. Received telephone call from [facility] nurse. She can be reached via telephone at [phone]. Quyen requested repeat physical therapy eval. Physical therapy continues to recommend STR. Quyen feels patient can't safely return to the [facility]. Quyen discussed this with Any. Any verbalized understanding. No bed offers have been made at this time. Referral broadcasted within 50 miles at this time. Tamela aware referral made need to be broadcasted state wide. Any also aware but hoping to keep patient local due to her not being able to drive long distances. Continue to monitor for d/c needs.
[2022-02-27] MEDS: OXcarbazepine 300 MG TABLET 600 MG PO (21:55)
[2022-02-27 23:15] VITALS: BP 119/75; PULSE 82; RESP 14; TEMP 37; O2SAT 94
[2022-02-28] MEDS: Omeprazole 20 MG CAPSULE.DR PO (07:39)
[2022-02-28] MEDS: OXcarbazepine 300 MG TABLET PO (07:39)
[2022-02-28] MEDS: Multivitamin TABLET 1 TAB PO (08:31)
[2022-02-28] MEDS: Gabapentin 300 MG CAPSULE PO (08:31)
[2022-02-28] MEDS: Atorvastatin Calcium 10 MG TABLET PO (08:31)
[2022-02-28] MEDS: Magnesium Oxide 400 MG TABLET PO ×2 (08:31→22:32)
[2022-02-28] MEDS: risperiDONE 0.5 MG TABLET PO ×2 (08:31→22:32)
[2022-02-28] MEDS: Escitalopram Oxalate 20 MG TABLET PO (08:31)
--- NOTE | 2022-02-28 10:30 | PC.NURSE ---
Triamcinolone and Flonase not available in ed pyxis, pharmacy aware.
--- NOTE | 2022-02-28 15:44 | PC.NURSE ---
this pct assumed care of pt at 1500 ,pt sitting in recliner ,pt was assisted to use urinal ,sitter at bedside .
--- NOTE | 2022-02-28 16:01 | PC.NURSE ---
pt had a ham sandwich orange juice and a cup of coffee for snack .
--- NOTE | 2022-02-28 18:31 | PC.NURSE ---
1800 rounding done pt in his chair having supper .
--- NOTE | 2022-02-28 20:21 | PC.NURSE ---
2000 rounding done pt asleep ,sitter at bedside .
[2022-02-28 20:57] VITALS: BP 119/78; PULSE 94; RESP 16; TEMP 36.6; O2SAT 98
--- NOTE | 2022-02-28 21:00 | PC.NURSE ---
2100 ROUNDING DONE ,PT IS AWAKE ,HELP PT TO USE URINAL ,VS TAKEN ,SITTER AT BEDSIDE .
--- NOTE | 2022-02-28 22:12 | PC.NURSE ---
2200 rounding done ,pt asleep ,sitter at bedside .
[2022-02-28] MEDS: OXcarbazepine 300 MG TABLET 600 MG PO (22:32)
[2022-02-28] MEDS: Triamcinolone Acet 0.1 % Oint 15 GM TUBE 1 APPL TOPICAL (22:32)
--- NOTE | 2022-03-01 00:43 | PC.NURSE ---
0000 rounding done pt asleep ,sitter at bedside .
--- NOTE | 2022-03-01 02:13 | PC.NURSE ---
0200 done pt asleep ,sitter at bedside .
[2022-03-01] MEDS: OXcarbazepine 300 MG TABLET PO (05:45)
[2022-03-01] MEDS: Omeprazole 20 MG CAPSULE.DR PO (05:46)
[2022-03-01 07:53] VITALS: BP 142/76; PULSE 73; RESP 18
[2022-03-01 08:26] VITALS: BP 147/78; PULSE 72; RESP 14; TEMP 36.7
[2022-03-01] MEDS: Gabapentin 300 MG CAPSULE PO (08:30)
[2022-03-01] MEDS: Atorvastatin Calcium 10 MG TABLET PO (08:30)
[2022-03-01] MEDS: Multivitamin TABLET 1 TAB PO (08:30)
[2022-03-01] MEDS: risperiDONE 0.5 MG TABLET PO ×2 (08:30→20:56)
[2022-03-01] MEDS: Magnesium Oxide 400 MG TABLET PO ×2 (08:30→20:56)
[2022-03-01] MEDS: Escitalopram Oxalate 20 MG TABLET PO (08:30)
[2022-03-01] MEDS: Triamcinolone Acet 0.1 % Oint 15 GM TUBE 1 APPL TOPICAL ×2 (08:34→20:56)
[2022-03-01] MEDS: OXcarbazepine 300 MG TABLET 600 MG PO (20:56)
[2022-03-01 21:18] VITALS: BP 135/83; PULSE 78; RESP 16; TEMP 36.8; O2SAT 97
[2022-03-02] MEDS: Omeprazole 20 MG CAPSULE.DR PO (06:22)
[2022-03-02] MEDS: OXcarbazepine 300 MG TABLET PO (06:29)
[2022-03-02 06:44] VITALS: BP 138/94; PULSE 89; RESP 18; O2SAT 94
--- NOTE | 2022-03-02 06:46 | PC.NURSE ---
Provider switching Cardizem gtt to Amiodarone gtt. Awaiting new orders at this time.
[2022-03-02 08:32] VITALS: BP 125/91; PULSE 95; RESP 18; TEMP 35.8; O2SAT 96
[2022-03-02] MEDS: Atorvastatin Calcium 10 MG TABLET PO (08:43)
[2022-03-02] MEDS: Magnesium Oxide 400 MG TABLET PO ×2 (08:43→20:14)
[2022-03-02] MEDS: Multivitamin TABLET 1 TAB PO (08:43)
[2022-03-02] MEDS: Gabapentin 300 MG CAPSULE PO (08:43)
[2022-03-02] MEDS: Escitalopram Oxalate 20 MG TABLET PO (08:43)
[2022-03-02] MEDS: Triamcinolone Acet 0.1 % Oint 15 GM TUBE 1 APPL TOPICAL ×2 (08:46→20:49)
[2022-03-02] MEDS: risperiDONE 0.5 MG TABLET PO ×2 (09:11→20:13)
[2022-03-02 11:12] VITALS: BP 130/80; PULSE 78; TEMP 36.3; O2SAT 95
--- NOTE | 2022-03-02 14:26 | MHC.CM.ED ---
Patient remains in ER. 306 referrals made in [facility]. No bed offers at this time. Continue to monitor for d/c needs.
[2022-03-02 17:04] VITALS: BP 125/74; PULSE 80; RESP 18; TEMP 36.6; O2SAT 97
--- NOTE | 2022-03-02 17:35 | PC.NURSE ---
pt continually yelling out. unable to accept redirection or intervention. pt unable to verbalize at this time what is upsetting him. pt continues to yell out can you be quiet! . offered coloring book, tv, food/drink all to witch pt refused.
--- NOTE | 2022-03-02 20:03 | PC.NURSE ---
assumed care of patient at [address]. sitter in [address]. patient laying on stretcher continuously shouting out BE QUIET - patient attempted to be redirected and calmed down multiple times by multiple different staff members. patient not following instruction and continues to be restless and yelling. will administer 2mg po ativan as ordered with bedtime meds. will continue to monitor closely.
[2022-03-02] MEDS: LORazepam 1 MG TABLET 2 MG PO (20:13)
[2022-03-02] MEDS: OXcarbazepine 300 MG TABLET 600 MG PO (20:14)
--- NOTE | 2022-03-02 20:16 | PC.NURSE ---
patient took po bedtime meds with no issues
[2022-03-02 21:34] VITALS: BP 113/63; PULSE 86; RESP 17; TEMP 36.6; O2SAT 93
--- NOTE | 2022-03-02 21:39 | PC.NURSE ---
Pt shouting BE QUIET! from 8pm-9:15pm when staff talking to each other or to other Pts. Pt reminded that His screaming is not helpful to his or the other Pts healing. Pt instructed to ring call gómez for help or reassurance instead of Yelling. Sharita Napier made aware
--- NOTE | 2022-03-03 03:53 | PC.NURSE ---
pt sleeping comfortably on stretcher, respirations even and unlabored, equal chest rise and fall. NAD, will continue to monitor
[2022-03-03] MEDS: OXcarbazepine 300 MG TABLET PO (06:12)
[2022-03-03] MEDS: Omeprazole 20 MG CAPSULE.DR PO (06:13)
--- NOTE | 2022-03-03 06:52 | PC.NURSE ---
Pt given belinda care after [place] cath fell off. Pt given a new [place] cath and bed pad changed and hospital gown changed. Pt given warm blankets and call gómez placed in reach
[2022-03-03 06:53] VITALS: BP 130/78; PULSE 84; RESP 16; TEMP 36.3; O2SAT 93
[2022-03-03] MEDS: Multivitamin TABLET 1 TAB PO (09:17)
[2022-03-03] MEDS: Magnesium Oxide 400 MG TABLET PO ×2 (09:17→20:02)
[2022-03-03] MEDS: Gabapentin 300 MG CAPSULE PO (09:17)
[2022-03-03] MEDS: Atorvastatin Calcium 10 MG TABLET PO (09:17)
[2022-03-03] MEDS: Escitalopram Oxalate 20 MG TABLET PO (09:17)
[2022-03-03 09:47] VITALS: BP 146/89; PULSE 80; RESP 14; TEMP 36.4
[2022-03-03] MEDS: risperiDONE 0.5 MG TABLET PO ×3 (10:37→20:02)
[2022-03-03] MEDS: LORazepam 1 MG TABLET 2 MG PO (10:37)
[2022-03-03] MEDS: Triamcinolone Acet 0.1 % Oint 15 GM TUBE 1 APPL TOPICAL ×2 (10:38→20:03)
[2022-03-03] MEDS: Fluticasone Propionate Nasal 16 GM SPRAY 1 SPRAY NOSTRIL-B (10:38)
--- NOTE | 2022-03-03 15:00 | PC.NURSE ---
This RN called patient's mom to see if she could come in early tomorrow prior to PT coming in to help him fit into his AFO braces. She is not able to do so. she said to just try using his shoes as the brace doesn't make much of a difference. I will leave a message with Jerrica via Sh[facility].
--- NOTE | 2022-03-03 16:14 | PC.NURSE ---
pt very agitated the entire shift, placed in trendelenburg so as not to fling himself out of bed. PRN risperdal given
--- NOTE | 2022-03-03 17:22 | PC.NURSE ---
PT INCONTINENT OF URINE. BEDDING AND GOWN CHANGED. RN AWARE.
[2022-03-03] MEDS: OXcarbazepine 300 MG TABLET 600 MG PO (20:03)
[2022-03-03 20:30] VITALS: BP 118/79; PULSE 104; RESP 16; TEMP 37.1; O2SAT 96
[2022-03-04] MEDS: OXcarbazepine 300 MG TABLET PO (06:01)
[2022-03-04] MEDS: Omeprazole 20 MG CAPSULE.DR PO (06:01)
--- NOTE | 2022-03-04 06:21 | PC.NURSE ---
pt medicated by TRINA Ward, then once awake PT began yelling out wake up everybody multiple times with multiple redirections that were unsuccessful, pt seems to relax when you step away. but then will continue to yell out. RN aware, [facility].
[2022-03-04 07:43] VITALS: BP 145/89; PULSE 87; RESP 18; TEMP 36.3; O2SAT 96
--- NOTE | 2022-03-04 07:45 | PC.NURSE ---
Pt did not eat all of his breakfast. Pt ate his toast and drank 1/4 of the milk and 1/4 of the juice.
--- NOTE | 2022-03-04 08:01 | PC.NURSE ---
pt had a bowel movement. large piece of feces and was solid
[2022-03-04 09:14] VITALS: BP 145/89; PULSE 87; O2SAT 96
[2022-03-04] MEDS: Triamcinolone Acet 0.1 % Oint 15 GM TUBE 1 APPL TOPICAL (09:17)
[2022-03-04] MEDS: Atorvastatin Calcium 10 MG TABLET PO (09:17)
[2022-03-04] MEDS: risperiDONE 0.5 MG TABLET PO (09:17)
[2022-03-04] MEDS: Gabapentin 300 MG CAPSULE PO (09:18)
[2022-03-04] MEDS: Fluticasone Propionate Nasal 16 GM SPRAY 1 SPRAY NOSTRIL-B (09:18)
[2022-03-04] MEDS: Magnesium Oxide 400 MG TABLET PO (09:18)
[2022-03-04] MEDS: Multivitamin TABLET 1 TAB PO (09:18)
[2022-03-04] MEDS: Escitalopram Oxalate 20 MG TABLET PO (09:26)
--- NOTE | 2022-03-04 09:52 | PC.NURSE ---
pt is a/o x 2 no sob/marina noted lungs - cta speaks in full sentences. heart sounds regular. abd soft and non-tender, bs + x 4 quads. rash to groin area cream applied. physical therapy at bedside earlier. pt aware of plan of care.
--- NOTE | 2022-03-04 11:20 | PC.NURSE ---
pt's mother robby ([phone]) called [facility] and was updated on pt status.
--- NOTE | 2022-03-04 14:02 | MHC.CM.ED ---
Patient remains in ER overflow. Physical therapy will work with patient daily. TRINA Napier [facility] intermediate aware. Patient's cousin, Tamela, also aware. No bed offers made yet. Continue to monitor for d/c needs.
[2022-03-04 15:30] VITALS: BP 140/91; PULSE 85; RESP 14; TEMP 36.6; O2SAT 99
[2022-03-04 23:44] VITALS: BP 113/69; PULSE 61; RESP 18; TEMP 36.8; O2SAT 98
--- NOTE | 2022-03-05 03:18 | PC.NURSE ---
Received RN to RN report from Kvng MENA. Pt is sleeping/resting comfortably at this time. Allowed to sleep. Respirations even/unlabored. Will continue to monitor.
--- NOTE | 2022-03-05 05:05 | PC.NURSE ---
Patient had bowel movement. Hygiene care provided and linens changed. Went back to sleep after change. Denies other needs at this time.
[2022-03-05 05:18] VITALS: BP 113/71; PULSE 96; RESP 18; TEMP 36.7; O2SAT 96
--- NOTE | 2022-03-05 05:18 | PC.NURSE ---
Pt soiled with urine and a large Bm. Pt reminded that he is continent at home and made aware of the importance of keeping his independence and skills. Pt reminded to use the urinal or ring to use the commode moving forward. Pt given pericare. Bed pads and hospital gown changed. Pt given warm blankets and call gómez placed in reach
[2022-03-05] MEDS: Omeprazole 20 MG CAPSULE.DR PO (06:26)
[2022-03-05] MEDS: OXcarbazepine 300 MG TABLET PO (06:26)
[2022-03-05] MEDS: Escitalopram Oxalate 20 MG TABLET PO (07:59)
[2022-03-05] MEDS: Atorvastatin Calcium 10 MG TABLET PO (07:59)
[2022-03-05] MEDS: Gabapentin 300 MG CAPSULE PO (07:59)
[2022-03-05] MEDS: risperiDONE 0.5 MG TABLET PO ×2 (07:59→20:23)
[2022-03-05] MEDS: Magnesium Oxide 400 MG TABLET PO ×2 (08:00→20:23)
[2022-03-05] MEDS: Multivitamin TABLET 1 TAB PO (08:00)
[2022-03-05 08:01] VITALS: BP 143/80; PULSE 76; TEMP 36.7; O2SAT 99
--- NOTE | 2022-03-05 10:14 | PC.NURSE ---
this account underwriter assumed care of this pt at 0700, pt up in bed at the time of assuming care. pt assisted to recliner by this RN to eat breakfast. denies pain, vss, meds given as documented. pt remains up in recliner, mother at bedside. no complaints.
--- NOTE | 2022-03-05 18:00 | PC.NURSE ---
incontinent care provided, pt up in recliner eating dinner. no complaints
--- NOTE | 2022-03-05 18:58 | PC.NURSE ---
assumed care of pt at 1900, pt sitting in recliner, ate 100% of dinner.
[2022-03-05 19:10] VITALS: BP 123/84; PULSE 85; RESP 16; TEMP 36.8; O2SAT 96
[2022-03-05] MEDS: OXcarbazepine 300 MG TABLET 600 MG PO (20:23)
--- NOTE | 2022-03-05 20:26 | PC.NURSE ---
pt resting quietyly in bed. a&ox2, vss, medicated per provider order.
--- NOTE | 2022-03-06 01:16 | PC.NURSE ---
Assumed care at 00:00. Patient easily arousable, incontinent of large amount of urine x1, says he usually knows when he needs to void. Patient denies pain, pleasant, cooperative. Skin appears fully intact.
[2022-03-06 05:27] VITALS: BP 125/83; PULSE 83; RESP 17; TEMP 37; O2SAT 95
[2022-03-06] MEDS: OXcarbazepine 300 MG TABLET PO (05:39)
[2022-03-06] MEDS: Omeprazole 20 MG CAPSULE.DR PO (05:39)
[2022-03-06] MEDS: Escitalopram Oxalate 20 MG TABLET PO (07:40)
[2022-03-06] MEDS: Atorvastatin Calcium 10 MG TABLET PO (07:40)
[2022-03-06] MEDS: Multivitamin TABLET 1 TAB PO (07:40)
[2022-03-06] MEDS: Triamcinolone Acet 0.1 % Oint 15 GM TUBE 1 APPL TOPICAL ×2 (07:40→21:21)
[2022-03-06] MEDS: risperiDONE 0.5 MG TABLET PO ×2 (07:40→20:38)
[2022-03-06] MEDS: Gabapentin 300 MG CAPSULE PO (07:40)
[2022-03-06] MEDS: Magnesium Oxide 400 MG TABLET PO ×2 (07:40→20:38)
[2022-03-06] MEDS: Fluticasone Propionate Nasal 16 GM SPRAY 1 SPRAY NOSTRIL-B (07:40)
--- NOTE | 2022-03-06 14:09 | MHC.CM.ED ---
Patient remains in ER overflow. Referral has been broadcasted within state of [place]. No bed offers made yet. Physical therapy will see patient everyday to help optimize mobility. Continue to monitor for d/c needs.
[2022-03-06 15:32] VITALS: BP 144/83; PULSE 85; RESP 17; TEMP 36.6; O2SAT 96
--- NOTE | 2022-03-06 20:11 | PC.NURSE ---
Assumed care of pt. Pt aler and oriented to self and place. Breaths are even and unlabored. Urinal provided to pt. Pt voided with no difficulty. Will continue to monitor.
[2022-03-06] MEDS: OXcarbazepine 300 MG TABLET 600 MG PO (20:38)
--- NOTE | 2022-03-06 23:55 | PC.NURSE ---
Took over care of patient around 2300. Pt A&OX3. Hx developmental delay and cerebral palsy. LS-CTA. No cough/sob. BS+. PP+, no edema. Pt rings for assistance. No c/o pain/discomfort. Call gómez and urinal within reach. Will continue to monitor.
[2022-03-07] MEDS: Omeprazole 20 MG CAPSULE.DR PO (05:28)
[2022-03-07] MEDS: OXcarbazepine 300 MG TABLET PO (05:28)
[2022-03-07 06:49] VITALS: BP 116/61; PULSE 75; RESP 18; TEMP 36.6; O2SAT 97
[2022-03-07] MEDS: Gabapentin 300 MG CAPSULE PO (08:47)
[2022-03-07] MEDS: risperiDONE 0.5 MG TABLET PO ×2 (08:47→20:45)
[2022-03-07] MEDS: Atorvastatin Calcium 10 MG TABLET PO (08:47)
[2022-03-07] MEDS: Multivitamin TABLET 1 TAB PO (08:47)
[2022-03-07] MEDS: Escitalopram Oxalate 20 MG TABLET PO (08:47)
[2022-03-07] MEDS: Magnesium Oxide 400 MG TABLET PO ×2 (08:47→20:45)
[2022-03-07 11:49] LABS: Magnesium 1.2 mg/dL (1.6-2.6)
[2022-03-07] MEDS: Magnesium Sulfate/H2O 2 GM/50 ML PIGGYBACK IV (12:57)
[2022-03-07] MEDS: Magnesium Oxide 400 MG TABLET 800 MG PO (12:57)
--- NOTE | 2022-03-07 13:10 | PC.NURSE ---
#22 IV placed in left hand without any complications noted
[2022-03-07 18:03] VITALS: BP 131/83; PULSE 82; RESP 14; TEMP 36.4; O2SAT 98
--- NOTE | 2022-03-07 19:30 | PC.NURSE ---
Pt being assisted to bed from chair by industrial ecology technician. Pt has no complaints at this time.
[2022-03-07] MEDS: OXcarbazepine 300 MG TABLET 600 MG PO (20:44)
--- NOTE | 2022-03-07 21:56 | PC.NURSE ---
Pt resting at this time. Pt in no apparent distress.
[2022-03-07 23:07] VITALS: BP 119/78; PULSE 82; RESP 16; TEMP 37.1; O2SAT 94
--- NOTE | 2022-03-08 00:25 | PC.NURSE ---
Pt sleeping at this time, respirations regular.
--- NOTE | 2022-03-08 02:51 | PC.NURSE ---
Pt sleeping at this time, respirations regular.
--- NOTE | 2022-03-08 05:00 | PC.NURSE ---
Pt sleeping at this time, respirations regular.
[2022-03-08] MEDS: OXcarbazepine 300 MG TABLET PO (06:02)
[2022-03-08] MEDS: Omeprazole 20 MG CAPSULE.DR PO (06:02)
--- NOTE | 2022-03-08 07:57 | PC.NURSE ---
large bm this am. ate 100% of breakfast. no distress noted. no solid plan at this time from case management
[2022-03-08] MEDS: Multivitamin TABLET 1 TAB PO (08:16)
[2022-03-08] MEDS: Atorvastatin Calcium 10 MG TABLET PO (08:16)
[2022-03-08] MEDS: Gabapentin 300 MG CAPSULE PO (08:16)
[2022-03-08] MEDS: risperiDONE 0.5 MG TABLET PO ×2 (08:16→21:52)
[2022-03-08] MEDS: Escitalopram Oxalate 20 MG TABLET PO (08:16)
[2022-03-08] MEDS: Magnesium Oxide 400 MG TABLET PO ×2 (08:17→21:52)
[2022-03-08] MEDS: Triamcinolone Acet 0.1 % Oint 15 GM TUBE 1 APPL TOPICAL ×2 (08:19→22:16)
[2022-03-08] MEDS: Fluticasone Propionate Nasal 16 GM SPRAY 1 SPRAY NOSTRIL-B (08:19)
[2022-03-08 08:23] VITALS: BP 137/70; PULSE 78; RESP 16; O2SAT 98
--- NOTE | 2022-03-08 11:10 | PC.NURSE ---
call placed to cm. states that pt will not treat while in the hospital.
--- NOTE | 2022-03-08 13:43 | PC.NURSE ---
visitor at bedside. pt calm and cooperative at this time.
[2022-03-08 20:38] VITALS: BP 127/83; PULSE 88; RESP 20; TEMP 36.8; O2SAT 97
[2022-03-08] MEDS: OXcarbazepine 300 MG TABLET 600 MG PO (21:51)
--- NOTE | 2022-03-09 03:04 | PC.NURSE ---
Pt incontinent of urine, cleaned and changed, linen changed.
--- NOTE | 2022-03-09 03:05 | PC.NURSE ---
Assist nurse in patient care.
[2022-03-09] MEDS: Omeprazole 20 MG CAPSULE.DR PO (06:13)
[2022-03-09] MEDS: OXcarbazepine 300 MG TABLET PO (06:13)
[2022-03-09 06:19] VITALS: BP 124/80; PULSE 93; RESP 18; TEMP 36.6; O2SAT 95
[2022-03-09 08:15] VITALS: BP 140/78; PULSE 79; RESP 18; TEMP 36.9; O2SAT 97
[2022-03-09] MEDS: risperiDONE 0.5 MG TABLET PO ×2 (08:22→20:06)
[2022-03-09] MEDS: Escitalopram Oxalate 20 MG TABLET PO (08:22)
[2022-03-09] MEDS: Multivitamin TABLET 1 TAB PO (08:22)
[2022-03-09] MEDS: Atorvastatin Calcium 10 MG TABLET PO (08:22)
[2022-03-09] MEDS: Gabapentin 300 MG CAPSULE PO (08:22)
[2022-03-09] MEDS: Magnesium Oxide 400 MG TABLET PO ×2 (08:23→20:05)
--- NOTE | 2022-03-09 08:24 | PC.NURSE ---
patient a&ox2, pt oob to commode with assist- + BM, pt ate 100% of breakfast, medicated per order, will call pharmacy for missing meds, denies pain/discomfort, call gómez within reach, will continue to monitor
--- NOTE | 2022-03-09 11:44 | PC.NURSE ---
patients mother is at bedside, brought the patient PO
--- NOTE | 2022-03-09 12:03 | PC.NURSE ---
per request of mother, pt to be changed to a ground diet, marge GUEVARA notified and a verbal order to change diet was given, will continue to monitor
--- NOTE | 2022-03-09 16:47 | MHC.CM.ED ---
Addendum entered by Jina Diaz 03/09/22 16:57: Referrals resent to all facilities. CM following for d/c planning. Original Note: Last PT assessment 03/02. Has not been Seen. Sharyn GUEVARA to order daily PT. [place] text to Yimi to ensure that patient receives daily PT. Neo castellano. Goal is for him to get stronger with PT, so he can return to his [facility]. No bed offers. CM to follow for d/c planning.
--- NOTE | 2022-03-09 18:24 | PC.NURSE ---
Assumed patient care at 1500. Patient alert and oriented to self and place. VSS. Patient making most needs met. Incontinent of urine x1. 2 assist, stand and pivot from chair to bed. Awaiting placement. Patient has no complaints at this time.
[2022-03-09] MEDS: OXcarbazepine 300 MG TABLET 600 MG PO (20:05)
--- NOTE | 2022-03-09 21:50 | PC.NURSE ---
Topical cream was not available in [facility] so pharmacy was called to deliver med. By the time med was delivered to overflow unit pt was sleeping in bed. Med charted as not given in the MAR. Med is now located in pt specific bin in the [facility] in overflow.
[2022-03-10 00:37] VITALS: BP 137/76; PULSE 82; RESP 18; TEMP 36.9; O2SAT 97
[2022-03-10] MEDS: OXcarbazepine 300 MG TABLET PO (06:26)
[2022-03-10] MEDS: Omeprazole 20 MG CAPSULE.DR PO (06:26)
[2022-03-10] MEDS: risperiDONE 0.5 MG TABLET PO ×2 (08:46→19:45)
[2022-03-10] MEDS: Escitalopram Oxalate 20 MG TABLET PO (08:46)
[2022-03-10] MEDS: Atorvastatin Calcium 10 MG TABLET PO (08:46)
[2022-03-10] MEDS: Multivitamin TABLET 1 TAB PO (08:46)
[2022-03-10] MEDS: Magnesium Oxide 400 MG TABLET PO ×2 (08:47→19:45)
[2022-03-10] MEDS: Gabapentin 300 MG CAPSULE PO (08:47)
[2022-03-10 09:55] VITALS: BP 137/76; PULSE 82; O2SAT 97
--- NOTE | 2022-03-10 10:14 | MHC.CM.ED ---
Addendum entered by Andie Durant 03/10/22 12:10: DDS PASRR Level 2 obtained and sent to [facility]. Original Note: Patient remains in ER overflow. Spoke with Ludmila, liaison for [facility]. They will be willing to accept patient when they obtain a copy of patient's Perales order and a copy of the intent to admit due to patient having a guardianship. Copy of Jeromy's order obtained from [facility]. T/W spoke with patient's mother/guardian, Any. Any aware and agreeable to discharge plan. Any will come to [facility] on 03/11 to sign Intent to admit. Patient's cousin, Tamela, updated on discharge plan with Any's approval. Tamela updated. Patient will need DDS PASRR Level 2. T/W already submitted for this. Clinical updates sent to DDS PASRR as requested. Continue to monitor for d/c needs.
--- NOTE | 2022-03-10 11:18 | PC.NURSE ---
pleasant and talkative all morning, ate breakfast, medicated as orfdered, used commode and urinated w assist x 1, family visiting now
[2022-03-10 11:19] LABS: COVID-19 Test Negative (Negative); IDNOW Serial# 16C4AD1C
[2022-03-10 13:08] LABS: Magnesium 1.3 mg/dL (1.6-2.6)
--- NOTE | 2022-03-10 15:40 | PC.NURSE ---
this check writer salesperson assumed care of this pt at 1500, pt up in recliner at the time of assuming care. pt asking multiple times when will he leave here, he was reassured that the director of casework department is working on a plan for him. denies pain.
[2022-03-10] MEDS: OXcarbazepine 300 MG TABLET 600 MG PO (19:45)
--- NOTE | 2022-03-10 19:46 | PC.NURSE ---
pt ate dinner and is now resting in the bed.
--- NOTE | 2022-03-10 20:32 | PC.NURSE ---
pt was ambulated to [facility] and is now resting back in bed comfortable
--- NOTE | 2022-03-10 20:40 | PC.NURSE ---
routine night meds given. cooperative with care. able to make needs known. ambulation with walker and stand by assist.
[2022-03-10 21:32] VITALS: RESP 18
--- NOTE | 2022-03-11 06:01 | PC.NURSE ---
pt had 1 incontinence episode , he was cleaned up and given a urinal if he needs to go again, he voided again using the urinal himself and letting me know he used it, no issues from him though the night
--- NOTE | 2022-03-11 06:26 | PC.NURSE ---
see downtime sheet for nurses note
[2022-03-11] MEDS: OXcarbazepine 300 MG TABLET PO (06:29)
[2022-03-11] MEDS: Omeprazole 20 MG CAPSULE.DR PO (06:29)
[2022-03-11] MEDS: Multivitamin TABLET 1 TAB PO (08:23)
[2022-03-11] MEDS: Atorvastatin Calcium 10 MG TABLET PO (08:23)
[2022-03-11] MEDS: Gabapentin 300 MG CAPSULE PO (08:23)
[2022-03-11] MEDS: Magnesium Oxide 400 MG TABLET PO (08:23)
[2022-03-11] MEDS: risperiDONE 0.5 MG TABLET PO (08:23)
[2022-03-11] MEDS: Escitalopram Oxalate 20 MG TABLET PO (08:23)
[2022-03-11 09:02] VITALS: BP 125/74; PULSE 99; RESP 14; TEMP 36.4; O2SAT 98
--- NOTE | 2022-03-11 09:52 | PC.NURSE ---
patient alert to baseline, ate 100% of breakfast, ADLs performed,pt was assisted oob to chair to watch tv, mother called- pt given portable phone to speak with her, he has no c/o pain or discomfort, pt is awaiting discharge to rehab facility.
--- NOTE | 2022-03-11 11:25 | PC.NURSE ---
report called to Bill at [facility], they will expect the patient
--- NOTE | 2022-03-11 11:34 | MHC.CM.ED ---
Patient remains in ER overflow #3. Filed Intent to Admit provided to [facility]. Patient can leave us at 1pm. Remi [employer] booked. Med [facility] with chart. Patient, Marly MENA and Sharyn GUEVARA aware. Left voicemail for patient's guardian/mom: Any via telephone at [phone]. Left voicemail for patient's cousin, Tamela at [phone]. Jessica from [facility] made aware via telephone at [phone]. Continue to monitor for d/c needs.
== END 2022-03-11 12:58 | disposition skilled nursing facility (03) ==
PROVIDERS: Emergency Medicine; Internal Medicine; Physician Assistant; Physician Assistant Medical; Social Worker; Emergency Provider Emergency Medicine Emergency Medical Services; PCP Internal Medicine
DX: F31.9 Bipolar disorder, unspecified (principal); E83.42 Hypomagnesemia; Z20.822 Contact with and (suspected) exposure to COVID-19; F89 Unspecified disorder of psychological development; F79 Unspecified intellectual disabilities; R45.1 Restlessness and agitation; R45.6 Violent behavior; G80.9 Cerebral palsy, unspecified; I10 Essential (primary) hypertension; Z79.899 Other long term (current) drug therapy
CPT/HCPCS: 36415; 74176; 80053; 80307; 81003; 83735; 85007; 85027; 87086; 87635; 96365; 96372; 97110; 97116; 97163; 99285; J1200; J3475

== ENCOUNTER 2022-03-22 17:56 | Emergency (ER) | payer OTHER, SELFPAY ==
[2022-03-22 18:40] VITALS: BP 150/100; BP 150/88; PULSE 105; PULSE 93; RESP 18; TEMP 36.8; O2SAT 97; BMI 25.7
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
== END 2022-03-22 21:19 | disposition home or self-care (01) ==
PROVIDERS: Emergency Provider Internal Medicine
DX: S30.1XXA Contusion of abdominal wall, initial encounter (principal); V43.52XA Car driver injured in collision with other type car in traffic accident, initial encounter; Y93.9 Activity, unspecified; Y92.410 Unspecified street and highway as the place of occurrence of the external cause; Y99.9 Unspecified external cause status
CPT/HCPCS: 99282

== ENCOUNTER 2023-01-04 06:12 | Outpatient (REF) | payer SELFPAY ==
[2023-01-04 05:56] LABS: MANUAL DIFF FLAG NO
[2023-01-04 06:36] LABS: Anion Gap 19 (12-20); Blood Urea Nitrogen 15 mg/dL (9-16); Carbon Dioxide 22 mmol/L (22-29); Chloride 105 mmol/L (96-108); Estimated Glomerular Filt Rate > 60; Glucose Random 104 mg/dL (60-115); Potassium 3.8 mmol/L (3.3-5.1); Sodium 142 mmol/L (135-145)
[2023-01-04 06:54] LABS: Basophils Percent Auto 0.4 % (0-2); Eosinophils Absolute Auto 0.3 X10*3/uL (0.0-0.4); Eosinophils Percent Auto 4.6 % (0-4); Hematocrit 39.8 % (42.0-52.0); Hemoglobin 13.3 g/dl (14.0-18.0); Imm Gran Abs Auto 0.06 X10*3/uL (0.00-0.03); Imm Gran Pct Auto 0.8 % (0.0-0.4); Lymphocytes Absolute Auto 2.5 X10*3/uL (1.2-4.9); Lymphocytes Percent Auto 34.9 % (20-40); Mean Corpuscular HGB Conc 33.4 g/dl (31.0-36.0); Mean Corpuscular Volume 83.8 fL (80.0-98.0); Mean Platelet Volume 10.5 fL (9.4-12.4); Monocytes Absolute Auto 0.7 X10*3/uL (0.1-1.2); Neutrophils Absolute Auto 3.6 x10*3/uL (2.0-8.3); Neutrophils Percent Auto 50.3 % (45-73); Platelet Count 171 X10*3/uL (160-400); Red Blood Count 4.75 X10*6/uL (4.60-5.80); Red Cell Distribution Width 13.5 % (11.0-16.0); White Blood Count 7.2 X10*3/uL (4.8-10.8)
== END 2023-01-04 06:13 | disposition home or self-care (01) ==
LOC: HO.MMNH1L 06:12
PROVIDERS: Visit Provider Family Medicine
DX: U07.1 COVID-19 (principal)
CPT/HCPCS: 36415; 80048; 85025

== ENCOUNTER 2023-01-17 15:32 | Emergency (ER) | payer MEDICARE, MEDICAID, SELFPAY ==
[2023-01-17 15:39] VITALS: BP 166/93; BP 170/95; PULSE 84; PULSE 90; RESP 16; TEMP 37.1; O2SAT 96; O2SAT 97; BMI 28.9
--- NOTE | 2023-01-17 19:20 | ED.GENADULT ---
HPI - General Adult General Chief complaint: General Medical Stated complaint: BEHAVIORAL Time Seen by Provider: 01/17/23 16:03 Source: patient, RN notes reviewed and old records reviewed Mode of arrival: ambulatory Limitations: no limitations History of Present Illness HPI narrative: 43-year-old male on 3 significant for cerebral palsy, intellectual disability presents for evaluation of aggression and agitation. Patient arrives at a care home. Per the directly there, Jessica, the patient returns a care home about a week ago after being in rehab for a month and a half. The patient has been constantly placed himself on the floor, having bowel movements in the floor and ?playing in it. ? He has been throwing his walker and other objects around the room. Her staff, the patient ?legs to be in the hospital so does what he can to get here. ? Time of my evaluation the patient has no complaints Denies any pain, fevers, chills, cough He did have COVID about a month and half ago Related Data Home Medications Medication Instructions Recorded Confirmed atorvastatin 10 mg tablet 10 mg PO DAILY 01/17/22 02/17/22 escitalopram oxalate 20 mg tablet 20 mg PO DAILY 01/17/22 02/17/22 gabapentin 300 mg capsule 300 mg PO DAILY 01/17/22 02/17/22 meloxicam 7.5 mg tablet 7.5 mg PO DAILY 01/17/22 02/17/22 minocycline 100 mg capsule 100 mg PO DAILY 01/17/22 02/17/22 multivitamin 1 tab PO DAILY 01/17/22 02/17/22 oxcarbazepine 300 mg tablet 300 mg PO DAILY@0630 01/17/22 02/17/22 potassium chloride 10 mEq 10 meq PO DAILY 01/17/22 02/17/22 tablet,extended release risperidone 0.5 mg tablet 0.5 mg PO BID 01/17/22 02/17/22 fluticasone propionate 50 1 spray intranasal DAILY 02/17/22 02/17/22 mcg/actuation nasal spray,suspension oxcarbazepine 600 mg tablet 600 mg PO BEDTIME 02/17/22 02/17/22 pantoprazole 40 mg tablet,delayed 40 mg PO DAILY 02/17/22 02/17/22 release triamcinolone acetonide 0.1 % 1 appl topical BID 02/17/22 02/17/22 topical ointment Previous Rx's Medication Instructions Recorded nystatin 100,000 unit/gram topical 1 appl topical BID 7 days #30 grams 01/19/22 powder Allergies Allergy/AdvReac Type Severity Reaction Status Date / Time No Known Allergies Allergy Verified 01/17/22 16:08 Review of Systems Constitutional: Constitutional: Denies chills, Denies fever(s) and Denies weakness (Patient is generally weak but denies new weakness compared to baseline) Cardiovascular: Cardiovascular: Denies dyspnea Respiratory: Respiratory: Denies cough and Denies dyspnea Gastrointestinal: Gastrointestinal: Denies abdominal pain, Denies nausea and Denies vomiting Musculoskeletal: Musculoskeletal: Denies back pain Integumentary/Breasts: Skin/Breast: Denies rash Neurologic: Reports behavioral changes and Denies weakness (Patient is generally weak but denies new weakness compared to baseline) Psychiatric: Psychiatric: Reports behavioral changes, Reports irritability and Reports mood swings PMFSH Past Medical History Medical History (Updated 01/18/23 @ 01:36 by Catalino Deal) Hypertension Intellectual disability Cerebral palsy Kidney cysts Social History Social History Household Members: Other Household Members Other:: care home Housing: Other Housing Other:: care home Alcohol intake: never Patient Tobacco Use Status: Never used Tobacco Smoked in Last 30 Days: No Advance Directives: Yes Advance Directives on File: Yes Advance Directives Date on File: 02/08/22 service: No Current occupational status: disabled Physical Exam ED Vital Signs: Vital Signs - 24 hr 01/17/23 15:39 01/17/23 20:00 01/17/23 22:36 Temperature 98.7 F 98.2 F Pulse Rate 84 84 76 Respiratory Rate 16 16 Blood Pressure 166/93 H 136/106 H 147/69 H Pulse Oximetry 97 98 97 Oxygen Delivery Method Room Air Room Air BMI result Body Mass Index 28.9 Const General: comfortable, no acute distress, alert and awake Nutritional Appearance: well nourished Orientation/consciousness: patient oriented x3 HENMT Head: Yes normocephalic and Yes atraumatic Eyes Eyelids: Yes eyelids normal Conjunctivae: conjunctivae normal Sclerae: sclerae normal Corneas: corneas normal Pupils: Equal, round and reactive pupils present EOM: EOMs intact bilaterally Neck Neck: Yes full ROM and Yes no meningeal signs Resp Effort & Inspection: normal respiratory effort, able to speak in complete sentences and not labored Cardio Rate: regular rate Rhythm: regular rhythm GI Inspection: No distended Palpation (GI): Soft to palpation, not firm, nontender, no guarding and not rigid Skin General skin exam: elasticity normal Neuro General: patient oriented x3, moves all extremities and no meningeal signs Cranial nerves: Yes Equal, round and reactive pupils present and Yes Bilaterally intact EOM present Extrem Other: Moving all extremities well without any obvious deformities Course Reevaluation(s) Reevaluation #1: Patient resting comfortably throughout the night, awaiting care Team consult, healthcare social worker consult. He is on position observation Time: 01:35 Medical Decision Making Medical Decision Making [facility] Narrative: 43-year-old male presents for evaluation of agitation and aggression. The patient admits to nursing staff and myself that he likes to be in the hospital and does not want to go back to his care home. custodial staff is reporting the patient is not safe at the care home because of his actions of throwing himself on the floor and throwing things to injure other residents and staff members. Plan for care to evaluation, clinical case manager evaluation and psychiatry consult once medically cleared. The patient has no somatic complaints Differential Diagnosis Differential Diagnoses: The differential diagnosis associated with the presentation includes Cerebral palsy Intellectual disability Psychosis Personality disorder Substance abuse Lab Data [facility] Lab Attestation statement: I reviewed the patient's lab results. No leukocytosis. Very mild anemia with a hemoglobin of 13.30 8.6. No significant electrolyte abnormalities. Normal renal function with a creatinine of 0.72. No evidence of UTI 01/17/23 17:52 01/17/23 17:11 Labs: Lab Results 01/17/23 01/17/23 01/17/23 Range/Units 16:09 17:11 17:52 WBC 7.5 (4.8-10.8) X10*3/uL RBC 4.73 (4.60-5.80) X10*6/uL Hgb 13.2 L (14.0-18.0) g/dl Hct 38.6 L (42.0-52.0) % MCV 81.6 (80.0-98.0) fL MCH 27.9 (27.0-33.0) pg MCHC 34.2 (31.0-36.0) g/dl RDW 13.3 (11.0-16.0) % Plt Count 176 (160-400) X10*3/uL MPV 9.9 (9.4-12.4) fL Immature Gran % (Auto) 0.1 (0.0-0.4) % Neut % (Auto) 57.1 (45-73) % Lymph % (Auto) 29.8 (20-40) % [place] % (Auto) 10.3 (2-11) % Eos % (Auto) 2.4 (0-4) % Baso % (Auto) 0.3 (0-2) % Lymph # (Auto) 2.2 (1.2-4.9) X10*3/uL [place] # (Auto) 0.8 (0.1-1.2) X10*3/uL Eos # (Auto) 0.2 (0.0-0.4) X10*3/uL Baso # (Auto) 0.0 (0.0-0.2) X10*3/uL Abs Immat Gran (auto) 0.01 (0.00-0.03) X10*3/uL Absolute Neuts (auto) 4.3 (2.0-8.3) x10*3/uL Absolute Nucleated RBC 0.000 (0.0-0.012) X10*3/uL Nucleated RBC % (auto) 0.0 (0.0-0.2) /100WBC Sodium 140 (135-145) mmol/L Potassium 3.7 (3.3-5.1) mmol/L Chloride 103 (96-108) mmol/L Carbon Dioxide 24 (22-29) mmol/L Anion Gap 17 (12-20) BUN 18 H (9-16) mg/dL Creatinine 0.72 (0.5-1.4) mg/dL Estim Creat Clear Calc 133.7 Estimated GFR > 60 Random Glucose 111 (60-115) mg/dL Calcium 10.1 D (8.4-10.2) mg/dL Total Bilirubin 0.2 (0.0-1.0) mg/dL AST 22 (5-37) U/L ALT 38 (0-40) U/L Alkaline Phosphatase 146 H (39-117) U/L Total Protein 6.7 (6.5-8.0) g/dL Albumin 4.0 (3.5-5.0) g/dL Lipase 33 (8-78) U/L Urine Color Yellow Urine Appearance Clear Urine pH 8.0 (5.0-9.0) Ur Specific [place] 1.010 (1.005-1.025) Urine Protein Negative (Neg-Trace) mg/dL Urine Glucose (UA) Negative (Negative) mg/dL Urine Ketones Negative (Negative) mg/dL Urine Blood Negative (Negative) Urine Nitrite Negative (Negative) Ur Leukocyte Esterase Negative (Negative) Discharge Plan Discharge Clinical Impression: Cerebral palsy, Intellectual disability, Agitation Patient Disposition: Still a Patient Prescriptions: No Action multivitamin Tablet 1 tab PO DAILY atorvastatin 10 mg tablet 10 mg PO DAILY minocycline 100 mg capsule 100 mg PO DAILY potassium chloride 10 mEq tablet extended release 10 meq PO DAILY oxcarbazepine 300 mg tablet 300 mg PO DAILY@0630 meloxicam 7.5 mg tablet 7.5 mg PO DAILY gabapentin 300 mg capsule 300 mg PO DAILY risperidone 0.5 mg tablet 0.5 mg PO BID escitalopram oxalate 20 mg tablet 20 mg PO DAILY nystatin 100,000 unit/gram Powder 1 appl topical BID 7 Days Qty: 30 1RF Protocol: Apply to: Apply to: groin pantoprazole 40 mg tablet,delayed release (DR/EC) 40 mg PO DAILY triamcinolone acetonide 0.1 % ointment 1 appl topical BID Rx Instructions: USE FOR MAX 1 WEEK AT A TIME fluticasone propionate 50 mcg/actuation spray,suspension 1 spray intranasal DAILY oxcarbazepine 600 mg Tablet 600 mg PO BEDTIME
--- NOTE | 2023-01-17 19:51 | MHC.CARE ---
CARE team attempted to contact pt's alf director, Jessica Browning ([phone]) and left a voice message requesting call back.
[2023-01-17 20:00] VITALS: BP 136/106; PULSE 84; RESP 16; TEMP 36.8; O2SAT 98
--- NOTE | 2023-01-17 20:04 | MHC.EDTECH ---
THIS PCT ASSUMED CARE OF PT 0 ,1999 ROUNDING DONE ,VITALS SIGN TAKEN ,PT WAS SET UP WITH [facility] ,ATE A FEW BITES AND SAID HE DOES NOT WANT ANYMORE ,PT COMFORTABLE ,NO APPARENT DISTRESS AT THIS TIME ,WILL CONTINUE TO MONITOR .
--- NOTE | 2023-01-17 21:36 | MHC.CARE ---
CARE team attempted to reach the [facility] ([phone]) however there was no answer and unable to leave a voice mail.
--- NOTE | 2023-01-17 21:37 | MHC.CARE ---
CARE team clinician attempted to meet with pt in the ED room 14. He was sleeping and startled awake when this senior mortgage underwriter said his name. He remained laying down with the blanket pulled over most of his face and did not speak much or respond to questions, but he did say feel sick and fell down at home. This senior mortgage underwriter offered to let the pt sleep and told him that someone will come back to talk to him in the morning after we've made contact with someone from his longterm.
[2023-01-17 22:36] VITALS: BP 147/69; PULSE 76; O2SAT 97
[2023-01-18 06:00] VITALS: BP 140/84; PULSE 87; RESP 17; TEMP 36.8; O2SAT 97
--- NOTE | 2023-01-18 10:25 | MHC.CM.ED ---
Received case management consult overnight. Care Team and Psych consults are pending. CM will be put on hold at this time.
--- NOTE | 2023-01-18 10:52 | PM.PSYCN ---
History of Present Illness Date of Service: 01/18/2023 Chief Complaint: BEHAVIORAL Reason for Consult: Agitation at the [facility]. Recent return from 1.5 months at rehab Placing himself on the floor Incontinent of stool and playing with it. Throwing his walker and objects in the house When asked, pt states he does not know why these symptoms are occurring. I want to go back to rehab Requesting physician: Catalino Deal Sources of Information: patient interviewed and chart reviewed HPI Narrative: 43 yo male, resident of a [facility], diagnosed with cerebral palsy and intellectual disability, presents from the [facility] where he has recently returned after a 1.5 month admssion to rehab. His residential team reports he has been throwing himself on the floor, having stool incontinence and playing with it, throwing objects and his walker. Pt is on a regime of lexapro, gabapentin, risperdal, trileptal. Met with pt who is calm, oriented to person, place and states he does not know why these symptoms are occurring. Pt is in process of level of care eval. He has had no symptoms of behavioral dyscontrol since admission per team report. 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 Reportedly, Patient was once discharged from another longterm for aggressive behaviors Medical Evaluation Reviewed: Yes Review of Systems Review of Systems Yes all other systems are reviewed and are negative [facility] Medical History Hypertension Intellectual disability Cerebral palsy Kidney cysts Family History: deferred Social History: lives in [facility]dc mother is guardian Trauma History: deferred Diagnostics Vital Signs (24Hr): Vital Signs - 24 hr 01/17/23 15:39 01/17/23 20:00 01/17/23 22:36 Temperature 98.7 F 98.2 F Pulse Rate 84 84 76 Respiratory Rate 16 16 Blood Pressure 166/93 H 136/106 H 147/69 H Pulse Oximetry 97 98 97 Oxygen Delivery Method Room Air Room Air 01/18/23 06:00 Temperature 98.2 F Pulse Rate 87 Respiratory Rate 17 Blood Pressure 140/84 H Pulse Oximetry 97 Oxygen Delivery Method Room Air BMI result Body Mass Index 28.9 Labs 01/17/23 17:52 10/08/23 17:11 Labs: Laboratory Results - last 48 hr 01/17/23 01/17/23 01/17/23 16:09 17:11 17:52 WBC 7.5 RBC 4.73 Hgb 13.2 L Hct 38.6 L MCV 81.6 MCH 27.9 MCHC 34.2 RDW 13.3 Plt Count 176 MPV 9.9 Immature Gran % (Auto) 0.1 Neut % (Auto) 57.1 Lymph % (Auto) 29.8 Ramsey % (Auto) 10.3 Eos % (Auto) 2.4 Baso % (Auto) 0.3 Lymph # (Auto) 2.2 Ramsey # (Auto) 0.8 Eos # (Auto) 0.2 Baso # (Auto) 0.0 Abs Immat Gran (auto) 0.01 Absolute Neuts (auto) 4.3 Absolute Nucleated RBC 0.000 Nucleated RBC % (auto) 0.0 Sodium 140 Potassium 3.7 Chloride 103 Carbon Dioxide 24 Anion Gap 17 BUN 18 H Creatinine 0.72 Estim Creat Clear Calc 133.7 Estimated GFR > 60 Random Glucose 111 Calcium 10.1 D Total Bilirubin 0.2 AST 22 ALT 38 Alkaline Phosphatase 146 H Total Protein 6.7 Albumin 4.0 Lipase 33 Urine Color Yellow Urine Appearance Clear Urine pH 8.0 Ur Specific [place] 1.010 Urine Protein Negative Urine Glucose (UA) Negative Urine Ketones Negative Urine Blood Negative Urine Nitrite Negative Ur Leukocyte Esterase Negative Mental Status Exam Mental Status Exam Patient Appearance: Appropriate Patient Orientation: Person, Place and Situation Level of Consciousness: Alert Patient Behavior: Appropriate, Talkative, Cooperative, Passive, Distractible and Good Eye Contact Mood Description: Appropriate Affect Description: Appropriate Patient Cognition Impaired: Yes Ability to Follow Directions: Fair Speech Pattern: Spontaneous Speech Memory Description: Episodic Impaired Hallucinations: None Delusions: Not Present Thought Process: Distracted Thought Content: positive for Circumstantial Depressive Symptoms: Diff. Making Decisions, Increased Irritability and Unhappiness Judgement: Poor Medications Allergies Allergies Allergy/AdvReac Type Severity Reaction Status Date / Time No Known Allergies Allergy Verified 01/17/22 16:08 Assessment & Plan Assessment & Plan (1) Agitation: Status: Acute Code(s): R45.1 - Restlessness and agitation (2) Intellectual disability: Status: Acute Code(s): F79 - Unspecified intellectual disabilities (3) Cerebral palsy: Status: Acute Code(s): G80.9 - Cerebral palsy, unspecified Plan 43 yo male, resident of a [facility] who has just returned from rehab presents with behavioral sx including placing himself on the floor, having stool incontinence and playing with this, throwing his walker and other objects in the home. Medically diagnostics are unremarkable and physical exam by team is negative. Suggest 1. TSH, B12, Folate, A1C, Lipid panel 2. Increase Risperdal to 0.5 mg bid and 0.5 mg bid prn agitation. Total time managing care of this patient today ____ minutes. Informed Consent: does not understand
--- NOTE | 2023-01-18 13:51 | MHC.CARE ---
CARE Team requested pharmacy consult for home medication from attending RN and charge master coordinator for Pt.
[2023-01-18 14:00] VITALS: BP 144/89; PULSE 84; RESP 20; TEMP 36.9; O2SAT 99
--- NOTE | 2023-01-18 15:22 | MHC.CARE ---
Plan for Pt to be discharged back to group- Clinical Direction Sabino [phone]. Plan for program june Lopez to follow up regarding discharge plan tor return to program.
== END 2023-01-18 18:02 | disposition home or self-care (01) ==
PROVIDERS: Emergency Provider Internal Medicine; PCP Internal Medicine
DX: G80.9 Cerebral palsy, unspecified (principal); R45.1 Restlessness and agitation; F79 Unspecified intellectual disabilities; R07.89 Other chest pain; R94.31 Abnormal electrocardiogram [ECG] [EKG]; Z79.899 Other long term (current) drug therapy
CPT/HCPCS: 36415; 80053; 80061; 81003; 82607; 82746; 83036; 83690; 84443; 85025; 93005; 99284; S9485

== ENCOUNTER → 2023-01-17 16:36 | Outpatient (BNV) | payer MEDICARE, MEDICAID, SELFPAY | PROVIDERS: Emergency Provider Internal Medicine; PCP Internal Medicine; Visit Provider Clinical Nurse Specialist Psychiatric/Mental Health, Adult | DX: F79 Unspecified intellectual disabilities (principal); R45.1 Restlessness and agitation; G80.9 Cerebral palsy, unspecified | CPT/HCPCS: 99283 ==